=== PATIENT | female | born 1990 | race Caucasian/White ===

== ENCOUNTER 2016-05-24 11:49 | Emergency (ER) | payer OTHER ==
[2016-05-24 11:54] VITALS: TEMP 97.7; BMI 34.3
[2016-05-24] MEDS ORDERED: SODIUM CHLORIDE 1,000 ML IV STA (12:23)
--- NOTE | 2016-05-24 12:23 | PDOC ---
History of Present Illness - General History Source: Patient Exam Limitations: No Limitations - History of Present Illness Initial Comments: 05/24/16 12:40 The patient is a 25-year-old woman, A0, currently , with no past medical history who presents to the emergency department via walk-in for further evaluation of diarrhea for the past 3 weeks. As per patient, her symptoms started on May 05. She experienced diffuse abdominal pain with associated nausea and vomiting. Patient states that her symptoms have persisted and expresses concern for possible dehydration and as she now endorses a cough. No fevers, chills, generalized weakness. No chest pain, shortness of breath. No urinary symptoms. Allergies; None known. Past Surgical History: None reported Social History: She denies tobacco and ETOH use. She admits to daily marijuana use (1 joint). <Lottie Prieto - Last Filed: 05/24/16 14:53> <Jessi Silva - Last Filed: 05/25/16 10:21> - General Chief Complaint: Pain, Acute Stated Complaint: ABDOMINAL PAIN Time Seen by Provider: 05/24/16 12:22 Past History <Lottie Prieto - Last Filed: 05/24/16 14:53> - Surgical History Appendectomy: Yes - Reproductive History (#): 3 Para: 2 Therapeutic (s) & number: No Spontaneous : 0 - Immunization History Immunization Up to Date: Yes - Psycho/Social/Smoking Cessation Hx Anxiety: No Suicidal Ideation: No Smoking Status: No Smoking History: Never smoked Have you smoked in the past 12 months: No Number of Cigarettes Smoked Daily: 0 If you are a former smoker, when did you quit?: PT DOES NOT SMOKE CIGARETTES, ONLY MARIJUANA PER HER REPORT Information on smoking cessation initiated: No 'Breaking Loose' booklet given: 02/12/15 Hx Alcohol Use: No Drug/Substance Use Hx: Yes (marijuana daily) Substance Use Type: None <Jessi Silva - Last Filed: 05/25/16 10:21> - Past Medical History Allergies/Adverse Reactions: Allergies Allergy/AdvReac Type Severity Reaction Status Date / Time No Known Allergies Allergy Verified 05/24/16 11:51 Home Medications: Ambulatory Orders Cephalexin Monohydrate [Keflex -] 500 mg PO BID #14 capsule 05/05/16 Cephalexin Monohydrate [Keflex -] 500 mg PO BID #14 capsule 05/24/16 Review of Systems - Review of Systems Able to Perform ROS?: Yes Comments:: 05/24/16 12:40 GENERAL/CONSTITUTIONAL: No fever or chills. No weakness. HEAD, EYES, EARS, NOSE AND THROAT: No change in vision. No ear pain or discharge. No sore throat. CARDIOVASCULAR: No chest pain or shortness of breath. RESPIRATORY: Yes: +Cough. No wheezing, or hemoptysis. GASTROINTESTINAL: Yes: +Abdominal Pain. +Nausea. +Vomiting. No diarrhea or constipation. GENITOURINARY: No dysuria, frequency, or change in urination. MUSCULOSKELETAL: No joint or muscle swelling or pain. No neck or back pain. SKIN: No rash NEUROLOGIC: No headache, vertigo, loss of consciousness, or change in strength/ sensation. ENDOCRINE: No increased thirst. No abnormal weight change. HEMATOLOGIC/LYMPHATIC: No anemia, easy bleeding, or history of blood clots. ALLERGIC/IMMUNOLOGIC: No hives or skin allergy. <Lottie Prieto - Last Filed: 05/24/16 14:53> *Physical Exam - Vital Signs Last Vital Signs Temp Pulse Resp BP Pulse Ox 97.7 F 65 20 131/69 99 05/24/16 11:51 05/24/16 11:51 05/24/16 11:51 05/24/16 11:51 05/24/16 11:51 - Physical Exam Comments: 05/24/16 12:41 GENERAL: Awake, alert, and fully oriented, in no acute distress HEAD: No signs of trauma EYES: PERRLA, EOMI, sclera anicteric, conjunctiva clear ENT: Auricles normal inspection, hearing grossly normal, nares patent, oropharynx clear without exudates. Moist mucosa NECK: Normal ROM, supple, no lymphadenopathy, JVD, or masses LUNGS: Breath sounds equal, clear to auscultation bilaterally. No wheezes, and no crackles HEART: Regular rate and rhythm, normal S1 and S2, no murmurs, rubs or gallops ABDOMEN: Soft, nontender, +hyperactive bowel sounds. No guarding, no rebound. No masses EXTREMITIES: Normal range of motion, no edema. No clubbing or cyanosis. No cords, erythema, or tenderness NEUROLOGICAL: Cranial nerves II through XII grossly intact. Normal speech <Lottie Prieto - Last Filed: 05/24/16 14:53> - Vital Signs Last Vital Signs Temp Pulse Resp BP Pulse Ox 97.7 F 65 20 131/69 99 05/24/16 11:51 05/24/16 11:51 05/24/16 11:51 05/24/16 11:51 05/24/16 11:51 <Jessi Silva - Last Filed: 05/25/16 10:21> ED Treatment Course - LABORATORY CBC & Chemistry Diagram: 05/24/16 12:55 05/24/16 12:55 <Lottie Prieto - Last Filed: 05/24/16 14:53> - LABORATORY CBC & Chemistry Diagram: 05/24/16 12:55 05/24/16 12:55 <Jessi Silva - Last Filed: 05/25/16 10:21> Medical Decision Making - Medical Decision Making Ultrasound results discussed with patient. No episodes of diarrhea in ED. Found to have UTI. Will treat with keflex. Encouraged her to drink more fluids, as her intake has been sub-optimal. Stable for DC home. <Jessi Silva - Last Filed: 05/25/16 10:21> *DC/Admit/Observation/Transfer - Attestations Scribe Attestion: 05/24/16 12:41 Documentation prepared by Lottie Prieto, acting as medical office scheduler for Jessi Silva MD. <Lottie Prieto - Last Filed: 05/24/16 14:53> - Discharge Dispostion Admit: No <Jessi Silva - Last Filed: 05/25/16 10:21> Diagnosis at time of Disposition: UTI (urinary tract infection) Qualifiers: Urinary tract infection type: acute cystitis Hematuria presence: without hematuria Qualified Code(s): N30.00 - Acute cystitis without hematuria Abdominal pain Qualifiers: Abdominal location: unspecified location Qualified Code(s): R10.9 - Unspecified abdominal pain - Discharge Dispostion Disposition: HOME Condition at time of disposition: Stable - Prescriptions Prescriptions: Cephalexin Monohydrate [Keflex -] 500 mg PO BID #14 capsule - Patient Instructions Printed Discharge Instructions: DI for Urinary Tract Infection (UTI), DI for Hyperemesis Gravidarum
[2016-05-24] MEDS ORDERED: ONDANSETRON 4 MG/2 ML VIAL IVPUSH ONE (12:47)
[2016-05-24] MEDS ORDERED: ONDANSETRON 4 MG/2 ML VIAL ONE (12:57)
[2016-05-24 13:19] LABS: BASOPHIL 0.8 % (0-2.0); EOSINOPHIL 2.3 % (0-4.5); MCH 27.4 pg (25.7-33.7); MCHC 33.1 g/dl (32.0-36.0); MEAN CELL VOLUME 82.6 fl (80-96); MEAN PLT VOLUME 9.2 fl (7.5-11.1); NEUTROPHILS 73.1 % (42.8-82.8); PLATELET COUNT 245 K/MM3 (134-434); RDW 15.7 % (11.6-15.6); WHITE BLOOD COUNT 7.2 K/mm3 (4.0-10.0)
[2016-05-24 13:46] LABS: ALBUMIN 3.4 g/dl (3.4-5.0); ANION GAP 12 (8-16); BILIRUBIN,TOTAL 0.3 mg/dL (0.2-1.0); CALCIUM 8.8 mg/dL (8.5-10.1); CO2 24 mmol/L (21-32); CREATININE 0.5 mg/dL (0.55-1.02); GLUCOSE,RANDOM 82 mg/dL (74-106); SGOT/AST 14 U/L (15-37); SGPT/ALT 13 U/L (12-78); TOT PROT 7.1 g/dl (6.4-8.2)
[2016-05-24 14:01] LABS: ALK PHOS 61 U/L (45-117)
[2016-05-24] MEDS ORDERED: ACETAMINOPHEN 1000 MG/100 ML VIAL (NON FORMULARY) IVPB ONE (14:02)
[2016-05-24 16:49] LABS: URINE APPEARANCE CLOUDY; URINE BILIRUBIN NEGATIVE (NEGATIVE); URINE BLOOD NEGATIVE (NEGATIVE); URINE COLOR YELLOW; URINE GLUCOSE (UA) NEGATIVE (NEGATIVE); URINE KETONE 1+ (NEGATIVE); URINE NITRITE NEGATIVE (NEGATIVE); URINE PROTEIN NEGATIVE (NEGATIVE); URINE UROBILINOGEN NEGATIVE E.U./dl (0.2-1.0)
[2016-05-24 16:51] LABS: URINE LEUK ESTERASE 1+ (NEGATIVE)
[2016-05-24 16:53] VITALS: BP 102/58; PULSE 68
[2016-05-24 16:53] LABS: URINE BACTERIA FEW /hpf (NONE SEEN); URINE MUCUS MANY; URINE RBC 3 /hpf (0-3); URINE WBC 17 /hpf (3-5)
[2016-05-24] MEDS ORDERED: CEPHALEXIN MONOHYDRATE 500 MG CAPSULE (UD) PO ONE (16:55)
== END 2016-05-24 17:18 | disposition home or self-care (01) ==
LOC: JER 11:49
PROC: 3E033NZ Introduction of Analgesics, Hypnotics, Sedatives into Peripheral Vein, Percutaneous Approach (ICD-10-PCS; principal; 2016-05-24)
PROC: 3E033GC Introduction of Other Therapeutic Substance into Peripheral Vein, Percutaneous Approach (ICD-10-PCS; 2016-05-24)
DX: O23.11 Infections of bladder in pregnancy, first trimester (principal); N30.00 Acute cystitis without hematuria; O34.11 Maternal care for benign tumor of corpus uteri, first trimester; D25.9 Leiomyoma of uterus, unspecified; O34.81 Maternal care for other abnormalities of pelvic organs, first trimester; N83.291 Other ovarian cyst, right side; Z3A.08 8 weeks gestation of pregnancy
CPT/HCPCS: 36415; 76801-TC; 80053; 81003; 81015; 83690; 84702; 85025; 87086; 96374; 96375; 99283-25

== ENCOUNTER 2016-07-19 11:54 | Emergency (ER) | payer OTHER ==
[2016-07-19 12:03] VITALS: TEMP 97; BMI 36.8
--- NOTE | 2016-07-19 12:31 | PDOC ---
History of Present Illness - General Chief Complaint: Pain, Acute Stated Complaint: ABD PAIN, 16 WKS Time Seen by Provider: 07/19/16 12:31 History Source: Patient Exam Limitations: No Limitations - History of Present Illness Initial Comments: 07/19/16 12:30 CHIEF COMPLAINT: Lower abdominal pain Machine Operator Slitter Technician: Dr. Almanzar ([facility]) HISTORY OF PRESENT ILLNESS: Patient is a 26-year-old female A1, 16 weeks , presented to the ED with the chief complaints of severe lower abdominal pain since yesterday. A/c to the patient, the pain started suddenly , progressively getting worse, located more on the lower abdomen, non radiating, stabbing and pressure in quality, not associated with nausea or vomiting. Denies vaginal discharge, spotting, bleeding, itching, fever, chills, rigors or sweating. Patient reports she visited Dr Almanzar last Wednesday and everything was normal. Had an ultrasound in Mid-June which was unremarkable as per the patient. Has a h/o fibroid and gets pressure and low back pain every but this was unbearable and had to come to the ED. Patient had a spontaneous miscarriage 2 years ago. Has had normal vaginal delivery in the past. No events during previous pregnancies. Bowel habit normal. No urinary symptoms like burning urination, increased frequency, urgency or incontinence. Sleep/Appetite normal. Patient visited the ED in May, for UTI and was treated with Keflex. Recent Travel: None PAST MEDICAL HISTORY: UTI, Fibroid PAST SURGICAL HISTORY: Appendectomy Social History: Smoking: Denies smoking cigarette, but used to smoke one joint of marijuana, stopped after . Alcohol: Denies Drugs: Denies Family History: Both parents have asthma and Diabetes. Allergies: NKDA 07/19/16 13:24 07/19/16 17:00 Past History - Past Medical History Allergies/Adverse Reactions: Allergies Allergy/AdvReac Type Severity Reaction Status Date / Time No Known Allergies Allergy Verified 07/19/16 12:03 Home Medications: Ambulatory Orders Cephalexin Monohydrate [Keflex -] 500 mg PO BID #14 capsule 05/05/16 Cephalexin Monohydrate [Keflex -] 500 mg PO BID #14 capsule 05/24/16 Cephalexin [Keflex] 250 mg PO TID #21 capsule 07/19/16 Other medical history: denies - Surgical History Appendectomy: Yes - Reproductive History (#): 3 Para: 2 Therapeutic (s) & number: No Spontaneous : 0 - Immunization History Immunization Up to Date: Yes - Psycho/Social/Smoking Cessation Hx Anxiety: No Suicidal Ideation: No Smoking Status: No Smoking History: Never smoked Have you smoked in the past 12 months: No Number of Cigarettes Smoked Daily: 0 If you are a former smoker, when did you quit?: PT DOES NOT SMOKE CIGARETTES, ONLY MARIJUANA PER HER REPORT 'Breaking Loose' booklet given: 02/12/15 Hx Alcohol Use: No Drug/Substance Use Hx: Yes (marijuana daily) Substance Use Type: None Review of Systems - Review of Systems Able to Perform ROS?: Yes Comments:: 07/19/16 12:00 CONSTITUTIONAL:~ Absent: fever, chills, diaphoresis, generalized weakness, malaise, loss of appetite HEENT:~ Absent: rhinorrhea, nasal congestion, throat pain, throat swelling, difficulty swallowing, mouth swelling, ear pain, eye pain, visual Changes CARDIOVASCULAR:~ Absent: chest pain, syncope, palpitations, irregular heart rate, lightheadedness , peripheral edema RESPIRATORY:~ Absent: cough, shortness of breath, dyspnea with exertion, orthopnea, wheezing, stridor, hemoptysis GASTROINTESTINAL: Present: abdominal pain Absent: abdominal distension, nausea, vomiting, diarrhea, constipation, melena, hematochezia GENITOURINARY:~ Absent: dysuria, frequency, urgency, hesitancy, hematuria, flank pain, genital pain MUSCULOSKELETAL:~ Absent: myalgia, arthralgia, joint swelling SKIN:~ Absent: rash, itching, pallor HEMATOLOGIC/IMMUNOLOGIC:~ Absent: easy bleeding, easy bruising, lymphadenopathy, frequent infections ENDOCRINE: Absent: unexplained weight gain, unexplained weight loss, heat intolerance, cold intolerance NEUROLOGIC:~ Absent: headache, focal weakness or paresthesias, dizziness, unsteady gait, seizure, mental status changes, bladder or bowel incontinence PSYCHIATRIC:~ Absent: anxiety, depression, suicidal or homicidal ideation, hallucinations. Is the patient limited Nepali proficient: No *Physical Exam - Vital Signs Last Vital Signs Temp Pulse Resp BP Pulse Ox 97 F L 108 H 18 138/73 99 07/19/16 12:00 07/19/16 12:00 07/19/16 12:00 07/19/16 12:00 07/19/16 12:00 - Physical Exam Comments: 07/19/16 12:00 PE: GENERAL: Awake, alert, and fully oriented, in no acute distress HEAD: No signs of trauma EYES: PERRLA, EOMI, sclera anicteric, conjunctiva clear ENT: Auricles normal inspection, hearing grossly normal, nares patent, oropharynx clear without exudates. Moist mucosa NECK: Normal ROM, supple, no lymphadenopathy, JVD, or masses LUNGS: Breath sounds equal, clear to auscultation bilaterally. No wheezes, and no crackles.. HEART: Regular rate and rhythm, normal S1 and S2, no murmurs, rubs or gallops ABDOMEN: Soft, tenderness over the B/L lower quadrant, normoactive bowel sounds. No guarding, no rebound. No masses. Pelvic examination: No bleeding in vaginal vault, whitish secretion in the cervix, no overlying placenta seen, CMT negative EXTREMITIES: Normal range of motion, no edema. No clubbing or cyanosis. No cords, erythema, or tenderness NEUROLOGICAL: Cranial nerves II through XII grossly intact. Normal speech, normal gait SKIN: Warm, Dry, normal turgor, no rashes or lesions noted. ED Treatment Course - LABORATORY CBC & Chemistry Diagram: 07/19/16 13:23 07/19/16 13:23 Medical Decision Making - Medical Decision Making 07/19/16 12:00 Patient seen and examined at bed side. Vitals noted, tachycardic, low temperature 97F rest unremarkable. Physical examination mentioned above Will order: Routine labs, UA, Bhcg quantitative, Chlamydia/Gonorrhoea amplification Tylenol 650mg PO stat 07/19/16 13:00 Patient reassessed. Abdominal pain reduced from 8 to 5/10 in intensity Labs noted, no leukocytosis. UA: Leukocyte esterase ++ with urine RBC and WBC-2 Transvaginal ultrasound done, waiting for the reports. 07/19/16 15:06 Patient is complaining of headache. Will order Tylenol 325mg stat Ultrasound report reviewed: Single live intrauterine with average sonographic gestational age of 16 weeks Uterine fibroid measuring 4.2 x 3.7 cm 07/19/16 15:[address] Jenelle Mello [phone] @ 15:26pm, she is not international controller. Spoke with Clinical Impression: [id number] @ 16 weeks gestation, abdominal pain most likely due to fibroid compressing the uterus vs UTI. Transvaginal ultrasound report mentioned above Spoke with Dr. Garnett over the phone regarding the patient. He agrees to our plan to discharge with Keflex and to follow up with Dr. Almanzar tomorrow at her clinic She has been advised to return to the Emergency if symptoms worsen or if she develops NEW symptoms. Illness, Investigation and Plan of care explained to the patient. She verbalized understanding. Case seen and discussed with Dr. Mendoza. *DC/Admit/Observation/Transfer Diagnosis at time of Disposition: UTI (urinary tract infection), Fibroid - Discharge Dispostion Admit: No - Prescriptions Prescriptions: Cephalexin [Keflex] 250 mg PO TID #21 capsule - Patient Instructions Printed Discharge Instructions: Urinary Tract Infection Additional Instructions: Your blood work looks normal. Urine examination shows urinary tract infection. Although you are asymptomatic, we have to treat it since you are . Make sure you take the antibiotics three times a day for 7 days (Keflex 250mg) and drink plenty of water. Please make an appointment with your Machine Operator Slitter Technician as soon as possible. Return to the Emergency Department if your symptoms persist or if NEW symptoms develop.
--- NOTE | 2016-07-19 13:24 | PDOC ---
Attending Attestation - Resident Resident Name: Ramandeep Flores - ED Attending Attestation I have performed the following: I have examined & evaluated the patient, The case was reviewed & discussed with the resident, I agree w/resident's findings & plan - HPI HPI: 07/19/16 13:22 26-year-old female, Ab1 (2 years ago) LMP 03/27/60 15 weeks She has had care and her last ultrasound was good Complaining of abdominal/pelvic pain, without vaginal bleeding or spotting She denies any fevers or chills She denies any dysuria urgency or frequency She denies any vomiting or diarrhea She has had a UTI during this treated with Keflex - Physicial Exam PE: 07/19/16 13:22 Physical exam PELVIC EXAMINATION: - Done by me External genitalia: Normal without lesions Vagina: The vaginal vault is clear without blood Cervix: Cervix is long and closed with no cervical motion tenderness Uterus: Uterus is consistent with 15 weeks Adnexa: There is bilateral adnexal tenderness, more on the left than the right - Medical Decision Making 07/19/16 13:24 15 weeks with pelvic cramping, but no vaginal bleeding or spotting 07/19/16 15:14 Laboratory Results - last 24 hr 07/19/16 07/19/16 07/19/16 12:59 12:59 13:23 WBC 8.4 RBC 3.95 Hgb 11.7 Hct 34.3 MCV 86.9 MCHC 34.1 RDW 18.6 H D Plt Count 216 MPV 9.1 Neutrophils % 72.5 Lymphocytes % 20.0 D Monocytes % 6.0 Eosinophils % 1.0 Basophils % 0.5 Sodium Potassium Chloride Carbon Dioxide Anion Gap BUN Creatinine Creat Clearance w eGFR Random Glucose Calcium Total Bilirubin AST ALT Alkaline Phosphatase Total Protein Albumin Beta HCG, Quant 46431.8 Urine Color Yellow Urine Appearance Clear Urine pH 5.0 Ur Specific [place] 1.027 Urine Protein Negative Urine Glucose (UA) Negative Urine Ketones Trace H Urine Blood Negative Urine Nitrite Negative Urine Bilirubin Negative Urine Urobilinogen Negative Ur Leukocyte Esterase 2+ H Urine RBC 2 Urine WBC 4 Ur Epithelial Cells Few Urine Bacteria Rare Urine Mucus Few Blood Type Antibody Screen 07/19/16 07/19/16 13:23 13:23 WBC RBC Hgb Hct MCV MCHC RDW Plt Count MPV Neutrophils % Lymphocytes % Monocytes % Eosinophils % Basophils % Sodium 140 Potassium 3.8 Chloride 106 Carbon Dioxide 24 Anion Gap 10 BUN 6 L D Creatinine 0.4 L Creat Clearance w eGFR > 60 Random Glucose 90 Calcium 8.5 Total Bilirubin 0.2 D AST 12 L ALT 13 Alkaline Phosphatase 52 Total Protein 6.4 Albumin 2.9 L Beta HCG, Quant Urine Color Urine Appearance Urine pH Ur Specific [place] Urine Protein Urine Glucose (UA) Urine Ketones Urine Blood Urine Nitrite Urine Bilirubin Urine Urobilinogen Ur Leukocyte Esterase Urine RBC Urine WBC Ur Epithelial Cells Urine Bacteria Urine Mucus Blood Type A POSITIVE Antibody Screen Negative ultrasound SL IUP with a gestational age of 16 weeks Uterine fibroid measuring 4.2 x 3.7 cm Will discuss with OB 07/19/16 16:16 Case and all results discussed with Dr. Garnett-OB Will send home with Keflex for presumed UTI He will follow her in the office in the next few days Discharge Disposition - Diagnosis UTI (urinary tract infection), Fibroid, Pelvic pain affecting - Discharge Dispostion Disposition: HOME Condition at time of disposition: Good Last Admission D/C Date: 01/12/13 - Prescriptions Prescriptions: Cephalexin [Keflex] 250 mg PO TID #21 capsule - Referrals - Patient Instructions Printed Discharge Instructions: Urinary Tract Infection Additional Instructions: Your blood work looks normal. Urine examination shows urinary tract infection. Although you are asymptomatic, we have to treat it since you are . Make sure you take the antibiotics three times a day for 7 days (Keflex 250mg) and drink plenty of water. Please make an appointment with your First Breaker Feeder as soon as possible. Return to the Emergency Department if your symptoms persist or if NEW symptoms develop. - Post Discharge Activity
[2016-07-19 13:30] LABS: URINE APPEARANCE CLEAR; URINE BILIRUBIN NEGATIVE (NEGATIVE); URINE BLOOD NEGATIVE (NEGATIVE); URINE COLOR YELLOW; URINE GLUCOSE (UA) NEGATIVE (NEGATIVE); URINE KETONE TRACE (NEGATIVE); URINE NITRITE NEGATIVE (NEGATIVE); URINE PROTEIN NEGATIVE (NEGATIVE); URINE UROBILINOGEN NEGATIVE E.U./dl (0.2-1.0)
[2016-07-19 13:31] LABS: URINE LEUK ESTERASE 2+ (NEGATIVE)
[2016-07-19] MEDS ORDERED: ACETAMINOPHEN 325 MG TABLET (FP) PO ONE ×2 (13:33→15:02)
[2016-07-19 13:34] LABS: URINE BACTERIA RARE /hpf (NONE SEEN); URINE MUCUS FEW; URINE RBC 2 /hpf (0-3); URINE WBC 4 /hpf (3-5)
[2016-07-19] MEDS ORDERED: ACETAMINOPHEN 325 MG TABLET (FP) ONE ×2 (13:41→15:15)
[2016-07-19 14:01] LABS: BASOPHIL 0.5 % (0-2.0); MCH 29.7 pg (25.7-33.7); MCHC 34.1 g/dl (32.0-36.0); MEAN CELL VOLUME 86.9 fl (80-96); MEAN PLT VOLUME 9.1 fl (7.5-11.1); NEUTROPHILS 72.5 % (42.8-82.8); PLATELET COUNT 216 K/MM3 (134-434); RDW 18.6 % (11.6-15.6); WHITE BLOOD COUNT 8.4 K/mm3 (4.0-10.0)
[2016-07-19 14:26] LABS: ALBUMIN 2.9 g/dl (3.4-5.0); ANION GAP 10 (8-16); BILIRUBIN,TOTAL 0.2 mg/dL (0.2-1.0); CALCIUM 8.5 mg/dL (8.5-10.1); CO2 24 mmol/L (21-32); CREATININE 0.4 mg/dL (0.55-1.02); GLUCOSE,RANDOM 90 mg/dL (74-106); SGOT/AST 12 U/L (15-37); SGPT/ALT 13 U/L (12-78); TOT PROT 6.4 g/dl (6.4-8.2)
[2016-07-19 14:27] LABS: ALK PHOS 52 U/L (45-117)
[2016-07-19 15:21] VITALS: BP 110/76; PULSE 88
== END 2016-07-19 16:35 | disposition home or self-care (01) ==
LOC: JER 11:54
DX: O23.42 Unspecified infection of urinary tract in pregnancy, second trimester (principal); O34.12 Maternal care for benign tumor of corpus uteri, second trimester; D25.9 Leiomyoma of uterus, unspecified; Z3A.16 16 weeks gestation of pregnancy
CPT/HCPCS: 36415; 76801-TC; 80053; 81003; 81015; 84702; 85025; 86850; 86900; 86901; 87086; 87491; 87591; 99283-25

== ENCOUNTER 2016-09-19 06:36 | Emergency (ER) | payer OTHER ==
[2016-09-19 06:45] VITALS: BMI 39.4
--- NOTE | 2016-09-19 06:51 | PDOC ---
History of Present Illness - General Chief Complaint: Labor Assessment Stated Complaint: ABD PAIN Time Seen by Provider: 09/19/16 06:45 History Source: Patient Exam Limitations: No Limitations - History of Present Illness Initial Comments: 09/19/16 06:48 LMP: 03/27/2016 Due Date: 01/07/2017 26-year-old female presents to the emergency department complaining of lower abdominal cramping 2 hours. Patient denies any nausea/vomiting, fever/ chills, headache, dizziness, lightheadedness, chest pain, shortness of breath, flank pains, urinary symptoms: Frequency/urgency/hesitancy, burning upon urination. Timing/Duration: 1-3 hours Associated Symptoms: reports: denies symptoms Past History - Past Medical History Allergies/Adverse Reactions: Allergies Allergy/AdvReac Type Severity Reaction Status Date / Time No Known Allergies Allergy Verified 09/19/16 06:42 Home Medications: Ambulatory Orders Vitamins (Sjr) - 1 tab PO DAILY 09/08/16 - Surgical History Appendectomy: Yes - Reproductive History (#): 3 Para: 2 Therapeutic (s) & number: No Spontaneous : 0 - Immunization History Immunization Up to Date: Yes - Psycho/Social/Smoking Cessation Hx Anxiety: No Suicidal Ideation: No Smoking Status: No Smoking History: Never smoked Have you smoked in the past 12 months: No Number of Cigarettes Smoked Daily: 0 If you are a former smoker, when did you quit?: PT DOES NOT SMOKE CIGARETTES, ONLY MARIJUANA PER HER REPORT Information on smoking cessation initiated: No 'Breaking Loose' booklet given: 02/12/15 Hx Alcohol Use: No Drug/Substance Use Hx: No Substance Use Type: None Review of Systems - Review of Systems Able to Perform ROS?: Yes Comments:: 09/19/16 06:46 CONSTITUTIONAL: Absent: fever, chills, diaphoresis, generalized weakness, malaise, loss of appetite HEENT: Absent: rhinorrhea, nasal congestion, throat pain, throat swelling, difficulty swallowing, mouth swelling, ear pain, eye pain, visual Changes CARDIOVASCULAR: Absent: chest pain, loss of consciousness, palpitations, irregular heart rate, peripheral edema RESPIRATORY: Absent: cough, shortness of breath, dyspnea with exertion, orthopnea, wheezing, stridor, hemoptysis GASTROINTESTINAL: lower abd carmping Absent: abdominal distension, nausea, vomiting, diarrhea, constipation, melena, hematochezia GENITOURINARY: Absent: dysuria, frequency, urgency, hesitancy, hematuria, flank pain, genital pain MUSCULOSKELETAL: Absent: myalgia, arthralgia, joint swelling SKIN: Absent: rash, itching, pallor HEMATOLOGIC/IMMUNOLOGIC: Absent: easy bleeding, easy bruising, lymphadenopathy, frequent infections ENDOCRINE: Absent: unexplained weight gain, unexplained weight loss, heat intolerance, cold intolerance NEUROLOGIC: Absent: headache, focal weakness or paresthesias, dizziness, unsteady gait, seizure, mental status changes, bladder or bowel incontinence PSYCHIATRIC: Absent: anxiety, depression, suicidal or homicidal ideation, hallucinations. Is the patient limited [place] proficient: No *Physical Exam - Vital Signs Last Vital Signs Temp Pulse Resp BP Pulse Ox 98.2 F 100 H 20 120/66 98 09/19/16 06:42 09/19/16 06:42 09/19/16 06:42 09/19/16 06:42 09/19/16 06:42 - Physical Exam Comments: 09/19/16 06:46 GENERAL: Well developed, well nourished. Awake and alert. No acute distress. HEENT: Normocephalic, atraumatic. PERRLA, EOMI. No conjunctival pallor. Sclera are non- icteric. Moist mucous membranes. Oropharynx is clear. NECK: Supple. Full ROM. No JVD. Carotid pulses 2+ and symmetric, without bruits. No thyromegaly. No lymphadenopathy. CARDIOVASCULAR: Regular rate and rhythm. No murmurs, rubs, or gallops. Distal pulses are 2+ and symmetric. PULMONARY: No evidence of respiratory distress. Lungs clear to auscultation bilaterally. No wheezing, rales or rhonchi. ABDOMINAL: Soft. Non-tender. Non-distended. No rebound or guarding. No organomegaly. Normoactive bowel sounds. MUSCULOSKELETAL Normal range of motion at all joints. No bony deformities or tenderness. No CVA tenderness. EXTREMITIES: No cyanosis. No clubbing. No edema. No calf tenderness. SKIN: Warm and dry. Normal capillary refill. No rashes. No jaundice. NEUROLOGICAL: Alert, awake, appropriate. Cranial nerves 2-12 intact. No deficits to light touch and temperature in face, upper extremities and lower extremities. No motor deficits in the in face, upper extremities and lower extremities. Normoreflexic in the upper and lower extremities. Normal speech. Toes are down- going bilaterally. Gait is normal without ataxia. PSYCHIATRIC: Cooperative. Good eye contact. Appropriate mood and affect. *DC/Admit/Observation/Transfer Diagnosis at time of Disposition: Pain, abdominal, nonspecific - Referrals Referrals: Suzie Cook MD [Primary Care Provider] -
[2016-09-19] MEDS ORDERED: LACTATED RINGERS SOLUTION 500 ML IV ONE ×2 (07:15→08:15)
[2016-09-19 09:15] LABS: URINE APPEARANCE SLCLOUDY; URINE BILIRUBIN NEGATIVE (NEGATIVE); URINE BLOOD NEGATIVE (NEGATIVE); URINE COLOR LTYELLOW; URINE GLUCOSE (UA) NEGATIVE (NEGATIVE); URINE KETONE NEGATIVE (NEGATIVE); URINE NITRITE NEGATIVE (NEGATIVE); URINE PROTEIN NEGATIVE (NEGATIVE); URINE UROBILINOGEN NEGATIVE E.U./dl (0.2-1.0)
[2016-09-19 09:18] LABS: BASOPHIL 0.3 % (0-2.0); EOSINOPHIL 1.6 % (0-4.5); MCH 29.7 pg (25.7-33.7); MCHC 34.1 g/dl (32.0-36.0); MEAN CELL VOLUME 87.1 fl (80-96); MEAN PLT VOLUME 8.8 fl (7.5-11.1); NEUTROPHILS 74.1 % (42.8-82.8); PLATELET COUNT 237 K/MM3 (134-434); RDW 13.8 % (11.6-15.6); WHITE BLOOD COUNT 6.4 K/mm3 (4.0-10.0)
[2016-09-19 09:37] LABS: URINE LEUK ESTERASE 1+ (NEGATIVE)
[2016-09-19 09:41] LABS: CALCIUM 8.4 mg/dL (8.5-10.1); COCKROFT - GAULT 472.1155; CREATININE 0.3 mg/dL (0.55-1.02)
[2016-09-19 10:10] LABS: URINE BACTERIA RARE /hpf (NONE SEEN); URINE MUCUS RARE; URINE RBC 4 /hpf (0-3); URINE WBC 3 /hpf (3-5)
[2016-09-19] MEDS ORDERED: LACTATED RINGERS SOLUTION 1,000 ML IV SCH (10:15)
[2016-09-19 14:32] VITALS: BP 109/53; PULSE 90; TEMP 98.2
== END 2016-09-19 16:30 | disposition home or self-care (01) ==
LOC: JER 06:36
DX: O26.892 Other specified pregnancy related conditions, second trimester (principal); R10.30 Lower abdominal pain, unspecified; Z3A.24 24 weeks gestation of pregnancy
CPT/HCPCS: 36415; 80048; 81003; 81015; 85025; 99281-25

== ENCOUNTER 2016-10-02 04:15 | Emergency (ER) | payer OTHER ==
--- NOTE | 2016-10-02 04:53 | PDOC ---
History of Present Illness - General History Source: Patient Exam Limitations: No Limitations - History of Present Illness Initial Comments: 10/02/16 05:20 The patient is a 26 year old female, 26 weeks , A0, with no significant past medical history, who presents to the ER with gradually worsening sore throat for one day. Patient rates the throat discomfort at 8-9/ 10 when she is swallowing and describes the throat as itchy while not swallowing. She states she has accompanied bilateral ear pain, left worse than right, and headache. Patient says she has chills and a subjective fever. She denies having similar symptoms in the past. She denies taking any pain medications. Patient is currently on pills. Denies changes in hearing Denies sinus pressure Denies nausea, vomiting, diarrhea Denies cough Denies chest pain or shortness of breath Surgical Hx: Appendectomy <Vielka Jones - Last Filed: 10/02/16 05:23> - General History Source: Patient <Samir Thakkar - Last Filed: 10/02/16 05:24> - General Stated Complaint: THROAT/EAR PAIN Time Seen by Provider: 10/02/16 04:53 Past History <Vielka Jones - Last Filed: 10/02/16 05:23> - Surgical History Appendectomy: Yes - Reproductive History (#): 3 Para: 2 Therapeutic (s) & number: No Spontaneous : 0 - Immunization History Immunization Up to Date: Yes - Psycho/Social/Smoking Cessation Hx Anxiety: No Suicidal Ideation: No Smoking Status: No Smoking History: Never smoked Have you smoked in the past 12 months: No Number of Cigarettes Smoked Daily: 0 If you are a former smoker, when did you quit?: PT DOES NOT SMOKE CIGARETTES, ONLY MARIJUANA PER HER REPORT 'Breaking Loose' booklet given: 02/12/15 Hx Alcohol Use: No Drug/Substance Use Hx: No Substance Use Type: None <Samir Thakkar - Last Filed: 10/02/16 05:24> - Past Medical History Allergies/Adverse Reactions: Allergies Allergy/AdvReac Type Severity Reaction Status Date / Time No Known Allergies Allergy Verified 10/02/16 05:01 Home Medications: Ambulatory Orders Vitamins (Sjr) - 1 tab PO DAILY 09/08/16 Azithromycin [Zithromax -] 250 mg PO UTDICT #6 tab 10/02/16 Review of Systems - Review of Systems Comments:: 10/02/16 05:20 CONSTITUTIONAL: Present: (+) fever, (+) chills Absent: no fatigue EYES: Absent: visual changes ENT: Present: (+) sore throat, (+) bilateral ear pain CARDIOVASCULAR: Absent: chest pain, no palpitations RESPIRATORY: Absent: cough, no SOB GI: Absent: abdominal pain, no nausea, no vomiting, no constipation, no diarrhea GENITOURINARY: Absent: dysuria, no frequency, no hematuria MUSCULOSKELETAL: Absent: back pain, no arthralgia, no myalgia SKIN: Absent: rash NEURO: Present: (+) headache <Ohs,Vielka - Last Filed: 10/02/16 05:23> *Physical Exam - Vital Signs Last Vital Signs Temp Pulse Resp BP Pulse Ox 98.4 F 107 H 20 110/70 98 10/02/16 05:01 10/02/16 05:01 10/02/16 05:01 10/02/16 05:01 10/02/16 05:01 - Physical Exam Comments: 10/02/16 05:21 GENERAL: Well-appearing, well-nourished. No apparent distress. HEENT: Moderate posterior pharynx no exudates. Papilloma in buccal mucosa. Tympanic membrane not bulging and benign. No lymphadenopathy. Normocephalic, atraumatic. PERRL, EOM intact. CARDIOVASCULAR: Tachycardic. Normal S1, S2. Regular rhythm. PULMONARY: Clear to auscultation bilaterally. ABDOMEN: Soft, non-distended, non-tender. EXTREMITIES: Normal ROM in all four extremities. No gross deformities. SKIN: Warm, dry. No rash NEUROLOGICAL: No focal neurological deficits. <OhnateVielka - Last Filed: 10/02/16 05:23> Medical Decision Making - Medical Decision Making 10/02/16 05:24 Dr. Thakkar: The scribe's documentation has been prepared under my direction and personally reviewed by me in its entirery. I confirm that the note above accurately reflects all work, treatment, procedures, and medical decision making performed by me. <Samir Thakkar - Last Filed: 10/02/16 05:24> *DC/Admit/Observation/Transfer - Attestations Scribe Attestion: 10/02/16 05:23 Documentation prepared by Vielka Jones, acting as medical technologist microbiology for Samir Thakkar DO. <Vielka Jones - Last Filed: 10/02/16 05:23> - Discharge Dispostion Admit: No <Samir Thakkar - Last Filed: 10/02/16 05:24> Diagnosis at time of Disposition: Pharyngitis Qualifiers: Pharyngitis/tonsillitis etiology: other specified organisms Qualified Code(s): J02.8 - Acute pharyngitis due to other specified organisms - Discharge Dispostion Disposition: HOME Condition at time of disposition: Stable - Prescriptions Prescriptions: Azithromycin [Zithromax -] 250 mg PO UTDICT #6 tab - Referrals Referrals: Jenelle Mello MD [Primary Care Provider] - - Patient Instructions Printed Discharge Instructions: DI for Pharyngitis/Tonsillopharyngitis -- Adult
[2016-10-02 05:03] VITALS: BP 110/70; PULSE 107; TEMP 98.4; BMI 39.4
[2016-10-02] MEDS ORDERED: AZITHROMYCIN 250 MG TABLET (FP) PO STA (05:22)
[2016-10-02] MEDS ORDERED: ACETAMINOPHEN 325 MG TABLET (FP) PO ONE (05:23)
[2016-10-02] MEDS ORDERED: AZITHROMYCIN 200 MG/5 ML BOTTLE ONE (05:26)
[2016-10-02] MEDS ORDERED: ACETAMINOPHEN 325 MG TABLET (FP) ONE (05:26)
== END 2016-10-02 05:44 | disposition home or self-care (01) ==
LOC: JER 04:15
DX: J02.9 Acute pharyngitis, unspecified (principal)
CPT/HCPCS: 99281-25

== ENCOUNTER 2016-10-26 18:15 | Emergency (ER) | payer OTHER ==
--- NOTE | 2016-10-26 18:26 | PDOC ---
Rapid Medical Evaluation Time Seen by Provider: 10/26/16 18:23 Medical Evaluation: Allergies Allergy/AdvReac Type Severity Reaction Status Date / Time No Known Allergies Allergy Verified 10/26/16 18:24 10/26/16 18:24 26 year old female with a history of rectal skin tags requiring surgery presenting with 3 days of rectal pain and bright red blood per rectum. V/s notable for HR 106. -Urine -Basic labs -To Main ED for further evaluation
[2016-10-26 18:29] VITALS: BMI 40.5
[2016-10-26 18:43] LABS: BASOPHIL 0.4 % (0-2.0); EOSINOPHIL 1.4 % (0-4.5); MCH 27.8 pg (25.7-33.7); MCHC 32.9 g/dl (32.0-36.0); MEAN CELL VOLUME 84.3 fl (80-96); MEAN PLT VOLUME 8.8 fl (7.5-11.1); NEUTROPHILS 68.3 % (42.8-82.8); PLATELET COUNT 275 K/MM3 (134-434); WHITE BLOOD COUNT 6.7 K/mm3 (4.0-10.0)
[2016-10-26 18:55] LABS: INR 0.99 (0.82-1.09); PROTHROMBIN TIME (PATIENT) 10.9 SEC (9.98-11.88)
[2016-10-26 19:03] LABS: ANISOCYTOSIS 2+; PLATELET ESTIMATE ADEQUATE (NORMAL); POLYCHROMASIA OCC
[2016-10-26 19:20] LABS: ALBUMIN 2.8 g/dl (3.4-5.0); ALK PHOS 84 U/L (45-117); ANION GAP 10 (8-16); BILIRUBIN,TOTAL 0.2 mg/dL (0.2-1.0); CALCIUM 8.7 mg/dL (8.5-10.1); CO2 23 mmol/L (21-32); CREATININE 0.4 mg/dL (0.55-1.02); GLUCOSE,RANDOM 123 mg/dL (74-106); SGOT/AST 29 U/L (15-37); SGPT/ALT 21 U/L (12-78)
--- NOTE | 2016-10-26 20:58 | PDOC ---
History of Present Illness - General Chief Complaint: Rectal Bleed Stated Complaint: PAIN Time Seen by Provider: 10/26/16 18:23 History Source: Patient Exam Limitations: No Limitations - History of Present Illness Travel History: No Initial Comments: 10/26/16 20:53 26yo Female patient 29 weeks presents to ED c/o rectal skin tag that is bleeding and causing pain. Patient state she had similar symptoms in the past (2 yrs ago) removed by surgeon but does not remember the surgeons name. She reports symptoms have been ongoing for the past 6 months but is concerned today due to bleeding. She denies any other complaints at this time. Patient denies vaginal bleeding, odor, discharge, pain, or any other complaints at this time. FLUME MAKER: Dr. Mello. Timing/Duration: reports: changing over time Quality: reports: mild Abdominal Pain Onset Location: denies: RUQ, LUQ, RLQ, LLQ, epigastric, periumbilical, suprapubic, generalized abdomen, flank, unknown, other Pain Radiation: denies: no radiation, RUQ, LUQ, RLQ, LLQ, epigastric, periumbilical, flank, groin, scapula, shoulder, chest, back, other Activities at Onset: denies: none, exertion, emotional upset, rest, sleep, no specific activity, eating, working, sexual intercourse, other Treatment Prior to Arrive: worse with: analgesics, antacids, cold pack, heat, laxative, enema, other Aggravating Factors: improves with: Defecation Alleviating Factors: improves with: Rest Past History - Travel Traveled outside of the country in the last 30 days: No Close contact w/someone who was outside of country & ill: No - Past Medical History Allergies/Adverse Reactions: Allergies Allergy/AdvReac Type Severity Reaction Status Date / Time No Known Allergies Allergy Verified 10/26/16 22:19 Home Medications: Ambulatory Orders Vitamins (Sjr) - 1 tab PO DAILY 09/08/16 Docusate Sodium [Colace -] 100 mg PO BID #28 capsule 10/27/16 Hydrocortisone 2.5% Topical Cr [Anusol 2.5% Hc Cream -] 1 applic RC BID #1 tube 10/27/16 Phenyleph/Mineral Oil/Petrolat [Preparation H Ointment] 1 applic RC QID PRN #1 tube 10/27/16 Other medical history: SKIN TAGS ( RECTAL ) - Surgical History Appendectomy: Yes - Reproductive History (#): 3 Para: 2 Therapeutic (s) & number: No Spontaneous : 0 - Immunization History Immunization Up to Date: Yes - Psycho/Social/Smoking Cessation Hx Anxiety: No Suicidal Ideation: No Smoking Status: No Smoking History: Never smoked Have you smoked in the past 12 months: No Number of Cigarettes Smoked Daily: 0 If you are a former smoker, when did you quit?: PT DOES NOT SMOKE CIGARETTES, ONLY MARIJUANA PER HER REPORT Information on smoking cessation initiated: No 'Breaking Loose' booklet given: 02/12/15 Hx Alcohol Use: No Drug/Substance Use Hx: No Substance Use Type: None Abd/GI Specific PMHX - Complaint Specific PMHX Colitis: No Diverticulitis: No Gall Bladder Disease: No GERD: No Irritable Bowel Synd (IBS): No Review of Systems - Review of Systems Able to Perform ROS?: Yes Is the patient limited Azeri proficient: No Constitutional: No: Chills, Fever ABD/GI: Yes: Abdominal Distended (29 Weeks ), Other ("Rectal Skin Tags") . No: Nausea, Poor Appetite, Poor Fluid Intake, Rectal Bleeding, Vomiting, Abdominal cramping : No: Burning, Dysuria, Flank Pain, Hematuria Musculoskeletal: No: Back Pain All Other Systems: Reviewed and Negative *Physical Exam - Vital Signs Last Vital Signs Temp Pulse Resp BP Pulse Ox 98.2 F 102 H 18 136/89 100 10/26/16 18:25 10/26/16 18:25 10/26/16 18:25 10/26/16 18:25 10/26/16 18:25 - Physical Exam General Appearance: Yes: Nourished, Appropriately Dressed. No: Apparent Distress, Mild Distress, Moderate Distress, Severe Distress Neck: positive: Trachea midline, Normal Thyroid, Supple. negative: Rigid, Decreased range of motion, Stridor, Lymphadenopathy (R), Lymphadenopathy (L) Respiratory/Chest: positive: Lungs Clear, Normal Breath Sounds. negative: Chest Tender, Respiratory Distress, Accessory Muscle Use, Labored Respiration, Rapid RR Cardiovascular: positive: Regular Rhythm, Regular Rate Gastrointestinal/Abdominal: positive: Normal Bowel Sounds, Soft, Distended (29 Weeks preg). negative: Tender, Guarding, Rebound, Tenderness Musculoskeletal: positive: Normal Inspection. negative: CVA Tenderness, Vertebral Tenderness Extremity: positive: Normal Capillary Refill, Normal Inspection, Normal Range of Motion. negative: Pedal Edema, Swelling, Calf Tenderness, Erythema, Inflammation Integumentary: positive: Normal Color, Dry, Warm. negative: Erythema, Diaphoresis, Rash, Swelling, Bruising Neurologic: positive: primary care pediatrician II-XII NML intact, Fully Oriented, Alert, Normal Mood/ Affect, Normal Response, Motor Strength 09/18 ED Treatment Course - LABORATORY CBC & Chemistry Diagram: 10/26/16 18:30 10/26/16 18:30 - ADDITIONAL ORDERS Additional order review: Laboratory Results 10/26/16 10/26/16 10/26/16 18:30 18:30 18:30 INR 0.99 Sodium 139 Potassium 4.3 Chloride 106 Carbon Dioxide 23 Anion Gap 10 BUN 12 D Creatinine 0.4 L D Creat Clearance w eGFR > 60 Random Glucose 123 H D Calcium 8.7 Total Bilirubin 0.2 AST 29 D ALT 21 D Alkaline Phosphatase 84 D Total Protein 7.0 Albumin 2.8 L Blood Type A POSITIVE Antibody Screen Negative 10/26/16 18:30 RBC 3.75 MCV 84.3 MCHC 32.9 RDW 14.0 MPV 8.8 Neutrophils % 68.3 Lymphocytes % 25.5 D Monocytes % 4.4 Eosinophils % 1.4 Basophils % 0.4 *DC/Admit/Observation/Transfer Diagnosis at time of Disposition: Normal , Hemorrhoidal skin tags - Discharge Dispostion Disposition: HOME Condition at time of disposition: Stable - Prescriptions Prescriptions: Hydrocortisone 2.5% Topical Cr [Anusol 2.5% Hc Cream -] 1 applic RC BID #1 tube Docusate Sodium [Colace -] 100 mg PO BID #28 capsule Phenyleph/Mineral Oil/Petrolat [Preparation H Ointment] 1 applic RC QID PRN #1 tube PRN Reason: Hemorrhoids - Referrals Referrals: Nicanor Garnett MD [Staff Physician] - 14 days (10/26/16 2220 Cleared to be discharged, Please follow up w/ MD as scheduled. Return to labor and delivery if you experience lower abdominal pain, vaginal bleeding, decrease baby movement and/or suspect rupture of membranes. ) - Patient Instructions Printed Discharge Instructions: DI for Hemorrhoids Additional Instructions: - Do Sitz bath using warm water or Epsom Salt (1 cup per 2 quarts of water). - Avoid straining. - Avoid constipation by eating a high fiber diet. Print Language: [place] CITIZEN
--- NOTE | 2016-10-26 21:18 | PDOC ---
*Physical Exam - Vital Signs Last Vital Signs Temp Pulse Resp BP Pulse Ox 98.2 F 102 H 18 136/89 100 10/26/16 18:25 10/26/16 18:25 10/26/16 18:25 10/26/16 18:25 10/26/16 18:25 ED Treatment Course - LABORATORY CBC & Chemistry Diagram: 10/26/16 18:30 10/26/16 18:30 - ADDITIONAL ORDERS Additional order review: Laboratory Results 10/26/16 10/26/16 10/26/16 18:30 18:30 18:30 INR 0.99 Sodium 139 Potassium 4.3 Chloride 106 Carbon Dioxide 23 Anion Gap 10 BUN 12 D Creatinine 0.4 L D Creat Clearance w eGFR > 60 Random Glucose 123 H D Calcium 8.7 Total Bilirubin 0.2 AST 29 D ALT 21 D Alkaline Phosphatase 84 D Total Protein 7.0 Albumin 2.8 L Blood Type A POSITIVE Antibody Screen Negative 10/26/16 18:30 RBC 3.75 MCV 84.3 MCHC 32.9 RDW 14.0 MPV 8.8 Neutrophils % 68.3 Lymphocytes % 25.5 D Monocytes % 4.4 Eosinophils % 1.4 Basophils % 0.4 Medical Decision Making - Medical Decision Making 10/26/16 21:17 agree with care from JJ Crowder *DC/Admit/Observation/Transfer Diagnosis at time of Disposition: Normal - Discharge Dispostion Disposition: HOME Condition at time of disposition: Stable - Referrals Referrals: Nicanor Garnett MD [Staff Physician] - 14 days (10/26/16 2220 Cleared to be discharged, Please follow up w/ MD as scheduled. Return to labor and delivery if you experience lower abdominal pain, vaginal bleeding, decrease baby movement and/or suspect rupture of membranes. )
[2016-10-26 22:39] VITALS: BP 109/67; PULSE 90; TEMP 98.3
== END 2016-10-26 23:00 | disposition home or self-care (01) ==
LOC: JER 18:15
DX: O26.893 Other specified pregnancy related conditions, third trimester (principal); K64.4 Residual hemorrhoidal skin tags; Z3A.29 29 weeks gestation of pregnancy
CPT/HCPCS: 36415; 80053; 85025; 85610; 86850; 86900; 86901; 99282-25

== ENCOUNTER → 2016-11-06 | Emergency (ER) | payer OTHER ==
[2016-11-06 09:18] VITALS: BMI 40.1
--- NOTE | 2016-11-06 09:33 | PDOC ---
*Physical Exam - Vital Signs Last Vital Signs Temp Pulse Resp BP Pulse Ox 98.5 F 114 H 18 134/88 100 11/06/16 09:12 11/06/16 09:12 11/06/16 09:12 11/06/16 09:12 11/06/16 09:12 - Physical Exam General Appearance: Yes: Apparent Distress *DC/Admit/Observation/Transfer - Referrals Referrals: Jenelle Mello MD [Primary Care Provider] -
[2016-11-06 10:35] VITALS: BP 97/58; PULSE 102; TEMP 98.4
== END | disposition home or self-care (01) ==
LOC: JER 09:08
DX: O12.03 Gestational edema, third trimester (principal); Z3A.31 31 weeks gestation of pregnancy
CPT/HCPCS: 99281-25

== ENCOUNTER 2017-01-07 05:00 | Inpatient (IN) | payer OTHER ==
[2017-01-07] MEDS ORDERED: DEXTROSE 5%-LACTATED RINGERS 1,000 ML IV SCH (10:15)
[2017-01-07 10:24] LABS: BASOPHIL 0.7 % (0-2.0); EOSINOPHIL 0.6 % (0-4.5); MCHC 32.6 g/dl (32.0-36.0); MEAN CELL VOLUME 76.8 fl (80-96); MEAN PLT VOLUME 9.7 fl (7.5-11.1); NEUTROPHILS 72.8 % (42.8-82.8); PLATELET COUNT 247 K/MM3 (134-434); RDW 15.5 % (11.6-15.6); WHITE BLOOD COUNT 8.5 K/mm3 (4.0-10.0)
[2017-01-07 10:42] LABS: ANION GAP 10 (8-16); CALCIUM 9.2 mg/dL (8.5-10.1); CO2 22 mmol/L (21-32); CREATININE 0.5 mg/dL (0.55-1.02); GLUCOSE,RANDOM 88 mg/dL (74-106)
[2017-01-07 10:51] LABS: INR 1.02 (0.82-1.09); PROTHROMBIN TIME (PATIENT) 11.2 SEC (9.98-11.88)
[2017-01-07] MEDS ORDERED: BUTORPHANOL TARTRATE 1 MG/ML VIAL IVPB ONE (10:53)
[2017-01-07] MEDS ORDERED: PROMETHAZINE HCL 25 MG/1 ML VIAL IVPUSH ONE (10:53)
[2017-01-07 10:54] LABS: ACTIVATED PTT 27.2 SECONDS (26.9-34.4)
[2017-01-07 11:12] VITALS: BMI 42.4
--- NOTE | 2017-01-07 11:14 | HP ---
Past Medical History - Primary Care Physician PCP:: Rosa Pa - Admission Chief Complaint: 26 yrs , 40 weeks iup onset LP since 8.00am History of Present Illness: PNC at [address] [place] [address]. Wt gain 32 lbs . Obesity A Pos, Rpr nr, Hbsag neg, Rubella pos, quantiferon neg, Hiv neg, Gbs neg, pap nilm, gc/ct neg , 1 hr gtt 127 MFM consult obtained NT screen neg, Modified Sequential neg early pregn Uterine Fibroid identifued right 3.4x3.8x3.4 cm Sono 11/30/16 34.4/7 , efw 75 % tile 2582 gm , esperanza 11.71 , bpp8/8, breech . h/o uti treated with Macrobid 07/2016 . HELLP work up done in due to proteinuria , it was neg History Source: Patient, Medical Record - Past Medical History [employer]: No: Migraine, Seizure Cardiovascular: No: HTN Pulmonary: No: Asthma, COPD ...: 4 ...Para: 2 ...Term: 1 (03/19/2006 6'7") ...: 1 (11/17/2007 6 lbs ) ...Spon : 1 ...Induced : 0 ...LMP: 03/27/16 ... Weeks Gestation by Dates: 40.6 ...EDC by Dates: 01/01/17 ...EDC by Sono: 01/07/17 Infectious Disease: No: AIDS, HIV, STD's, Tuberculosis Psych: No: Addictions, Anxiety - Past Surgical History Hx Myomectomy: No Hx Transabdominal Cerclage: No Additional Surgical History: excision anal tag - Smoking History Smoking history: Never smoked Have you smoked in the past 12 months: No Aproximately how many cigarettes per day: 0 If you are a former smoker, when did you quit?: PT DOES NOT SMOKE CIGARETTES, ONLY MARIJUANA PER HER REPORT - Alcohol/Substance Use Hx Alcohol Use: No History of Substance Use: reports: None Home Medications - Allergies Allergies/Adverse Reactions: Allergies Allergy/AdvReac Type Severity Reaction Status Date / Time No Known Allergies Allergy Verified 11/23/16 23:15 - Home Medications Home Medications: Ambulatory Orders Vitamins (Sjr) - 1 tab PO DAILY 09/08/16 Physical Exam - Maternity Vital Signs: Vital Signs Temperature 98.2 F 01/07/17 06:11 Pulse Rate 116 H 01/07/17 06:11 Respiratory Rate 20 01/07/17 06:11 Blood Pressure 128/80 01/07/17 06:11 O2 Sat by Pulse Oximetry (%) Constitutional: Yes: Well Nourished, Obese (247 lbs) Eyes: Yes: WNL HENT: Yes: Normocephalic Neck: Yes: WNL Cardiovascular: Yes: WNL Lungs: Clear to auscultation Breast(s): Yes: WNL - Abdominal Exam/OB Fundal Height: 40 Number of Fetuses: Single Presentation: Vertex Contractions: Yes Regularity: Irregular (2-4 min) Intensity: Mod/Strong Monitor Mode: External Heart Rate (range): 1 Heart Rate Location: [facility] Category: I Accelerations: Uniform Decelerations: None - Vaginal Exam/OB Vaginal Bleediing: Bloody Show Speculum Exam: No Dilatation (cm): 6 Effacement (%): 90 Amniotic Membrane Status: Intact Presentation: Vertex/Position (exam at 10.15 am) Station: -3 - Physical Exam Musculoskeletal: Yes: WNL Extremities: Yes: WNL. No: Calf Tenderness Edema: Yes Edema: LLE: 2+, RLE: 2+ Integumentary: Yes: WNL, Tattoos Deep Tendon Reflex Grade: Normal +2 ...Motor Strength: WNL Psychiatric: Yes: WNL, Alert, Oriented - Labs Lab Results: CBC, BMP 01/07/17 10:15 01/07/17 10:15 Laboratory Tests 01/07/17 01/07/17 10:15 10:15 INR 1.02 PTT (Actin FS) 27.2 Blood Type A POSITIVE Problem List - Problems (1) 40 weeks gestation of Code(s): Z3A.40 - 40 WEEKS GESTATION OF (2) Labor established Code(s): USG6693 - (3) Morbid obesity due to excess calories Code(s): E66.01 - MORBID (SEVERE) OBESITY DUE TO EXCESS CALORIES Assessment/Plan 26 years, , LD 9 years ago, in labor ,obesity , gbs neg, in labor Plan vag delivery trial . requests stadol + phenrga for labor analgesia 11.15 am 7 cm /90 % /Arom , light meconium, scalp electrode applied fhr 17-180 bpm, , cat-[address] trial of labor
[2017-01-07] MEDS ORDERED: ELECTROLYTE-148 SOLN 1,000 ML IV SCH (13:45)
--- NOTE | 2017-01-07 13:46 | PN ---
Progress Note, Labor Vaginal Exam #1 Labor Exam Date: 01/07/17 Labor Exam Time: 13:30 Heart Rate (range): 140-150 Dilatation: 7 Effacement (%): 90 Amniotic Membrane Status: Ruptured Presentation: Vertex/Position Station: -2 (-3/-2) Remarks: stadol 2 mg + phenrgan 25 iv was given at 11.45 am 01/07/17 01/07/17 11:00 12:00 Temperature 98.4 F Pulse Rate 107 H Blood Pressure 127/76 124/78 Vaginal Exam #2 Labor Exam Date: 01/07/17 Labor Exam Time: 15:00 Heart Rate (range): 140-150 Dilatation: 8 Effacement (%): 90 Amniotic Membrane Status: Ruptured Presentation: Vertex/Position Station: -2 Remarks: fhr cat-1 uc 2-4 min pt very uncomfortable , after receiving epidural analgesia also possible epidural block is ineffective, anesthsiologist will revaluate , may do again Selected Entries 01/07/17 13:00 Temperature 98.9 F Pulse Rate 100 H Blood Pressure 131/76 Vaginal Exam #3 Labor Exam Date: 01/07/17 Labor Exam Time: 16:55 Heart Rate (range): 150 Dilatation: 10 Effacement (%): 100 Amniotic Membrane Status: Ruptured Presentation: Vertex/Position Station: +1 Remarks: uc q 2min fhr cat-1 repeat epidural block was given , along with spinal block . 17.15 pt is encouraged to push.
[2017-01-07] MEDS ORDERED: BENZOCAINE 28 GM HEMORRHOIDAL OINTMENT TP PRN (17:42)
[2017-01-07] MEDS ORDERED: METHYLERGONOVINE MALEATE 0.2 MG/1 ML AMP IM PRN (17:42)
[2017-01-07] MEDS ORDERED: BISACODYL 10 MG SUPP.RECT RC PRN (17:42)
[2017-01-07] MEDS ORDERED: oxyCODONE HCL 5 MG TABLET PO PRN (17:42)
[2017-01-07] MEDS ORDERED: BENZOCAINE 20% 57 GM BOTTLE TP PRN (17:42)
[2017-01-07] MEDS ORDERED: WITCH HAZEL 50% (TUCKS) 40 PAD/JAR PAD TP PRN (17:42)
[2017-01-07] MEDS ORDERED: D5W-LR W/ 20 UNITS OXYTOCIN 1,000 ML IV SCH (17:45)
--- NOTE | 2017-01-07 17:50 | PN ---
Delivery - Delivery Vaginal Delivery: Spontaneous Type of Anesthesia: Epidural EBL (cc): 400 Delivery, Single - Stages of Labor Date 1st Stage Initiatied: 01/07/17 Time 1st Stage Initiated: 08:00 Date 2nd Stage Initiated: 01/07/17 Time 2nd Stage Initiated: 16:55 Date of Delivery: 01/07/17 Time of Delivery: 17:30 Date Placenta Delivered: 12/31/16 Time Placenta Delivered: 17:35 Placenta: Yes: Spontaneous - Condition of Customer Relationship Specialist/Spa Consultant Present: No Infant Gender: Female Position: Left, OA Total Hours ROM (Hrs/Mins): 6hrs 20 min light mecon - 1 Minute Total Score: 9 5 Minutes Total Score: 10 - Feeding Plan Initial Plan: Elected not to breastfeed exclusively throughout hospitalization Remarks - Remarks Remarks: 26 yrs 40 weeks , gbs neg , ,morbid obesity, admitted in labor pnc at [address] [place] [address] stadol + phenerga followed by epidural block x2 was given for labor analgesia intrapartum course uneventful
[2017-01-07 18:34] LABS: ARTERIAL BLD GAS O2 SATURATION 53.1 % (90-98.9); ARTERIAL BLOOD GAS BASE EXCESS -2.7 meq/l (-2-2); ARTERIAL BLOOD GAS HCO3 22.6 meq/L (22-26); ARTERIAL BLOOD GAS pH 7.34 (7.35-7.45)
[2017-01-07 18:39] LABS: ARTERIAL BLOOD GAS PO2 26.7 mmHg (80-100)
[2017-01-07 18:43] LABS: VENOUS BLOOD GAS HCO3 24.7 meq/L (19-25)
[2017-01-07 18:44] LABS: VENOUS PH 7.24 (7.32-7.42)
--- NOTE | 2017-01-08 07:40 | PN ---
Progress Note (short form) - Note Progress Note: ppd 1 doing well, no c/o CBC, BMP 01/07/17 10:15 01/07/17 10:15 Last Vital Signs Temp Pulse Resp BP Pulse Ox 99.3 F 77 20 116/84 98 01/08/17 06:00 01/08/17 06:00 01/08/17 06:00 01/08/17 06:00 01/07/17 18:30 abdomen soft, non tender , no cva uterus firm, non tender lochia mild plan ambulate , cbc
[2017-01-08] MEDS: FERROUS SO4 325 MG TABLET (FP) PO SCH ×2 (08:01→17:23)
[2017-01-08] MEDS: IBUPROFEN 600 MG TABLET (FP) PO PRN ×2 (08:05→13:53)
[2017-01-08] MEDS: ACETAMINOPHEN 325 MG TABLET (FP) PO PRN ×2 (08:06→13:53)
[2017-01-08 08:43] LABS: BASOPHIL 0.4 % (0-2.0); EOSINOPHIL 0.3 % (0-4.5); MCH 24.8 pg (25.7-33.7); MCHC 32.1 g/dl (32.0-36.0); MEAN CELL VOLUME 77.3 fl (80-96); MEAN PLT VOLUME 9.5 fl (7.5-11.1); NEUTROPHILS 73.3 % (42.8-82.8); PLATELET COUNT 217 K/MM3 (134-434); RDW 15.9 % (11.6-15.6)
[2017-01-08] MEDS: PRENATAL VITAMINS W/ FOLIC ACID TABLET (FP) PO SCH (10:05)
[2017-01-08] MEDS ORDERED: SENNOSIDES/DOCUSATE COMBO (SENNA PLUS) TABLET (UD) PO PRN (22:00)
[2017-01-09] MEDS: IBUPROFEN 600 MG TABLET (FP) PO PRN (05:24)
[2017-01-09] MEDS: ACETAMINOPHEN 325 MG TABLET (FP) PO PRN (05:25)
[2017-01-09 08:18] VITALS: BP 107/59; PULSE 76; TEMP 98.6
[2017-01-09] MEDS: FERROUS SO4 325 MG TABLET (FP) PO SCH (08:55)
[2017-01-09] MEDS: PRENATAL VITAMINS W/ FOLIC ACID TABLET (FP) PO SCH (09:55)
--- NOTE | 2017-01-09 10:27 | DS ---
Physical Exam-ELEMENTARY ASSISTANT PRINCIPAL Vital Signs: Vital Signs Temperature 98.6 F 01/09/17 08:17 Pulse Rate 76 01/09/17 08:17 Respiratory Rate 18 01/09/17 08:17 Blood Pressure 107/59 01/09/17 08:17 O2 Sat by Pulse Oximetry (%) 98 01/07/17 18:30 Constitutional: Yes: Well Nourished Eyes: Yes: Conjunctiva Clear Neck: Yes: Supple, Trachea Midline Cardiovascular: Yes: Regular Rate and Rhythm Respiratory: Yes: Regular, CTA Bilaterally Gastrointestinal: Yes: Normal Bowel Sounds ...Rectal Exam: Yes: WNL External Genitalia: Yes: Normal Vaginal Exam: Yes: Normal Cervix: Yes: Normal Uterus: Yes: Firm ....Post : Yes: Uterus firm, Moderate lochia serosa Breast(s): Yes: WNL Neurological: Yes: Alert, Oriented ...Motor Strength: WNL Psychiatric: Yes: Alert, Oriented Labs: CBC, BMP 01/08/17 08:00 01/07/17 10:15 Delivery - Delivery Vaginal Delivery: Spontaneous Type of Anesthesia: Epidural Episiotomy/Laceration: None EBL (cc): 400 Delivery, Single - Stages of Labor Date 1st Stage Initiatied: 01/07/17 Time 1st Stage Initiated: 08:00 Date 2nd Stage Initiated: 01/07/17 Time 2nd Stage Initiated: 16:55 Date of Delivery: 01/07/17 Time of Delivery: 17:30 Time Placenta Delivered: 17:35 Placenta: Yes: Spontaneous - Condition of Entertainment & Media Correspondent/Dye House Helper Present: [place]: Soraida Nettles Infant Gender: Female Position: Left, OA Total Hours ROM (Hrs/Mins): 6hrs 20 min light mecon - 1 Minute Total Score: 9 5 Minutes Total Score: 10 - [place] Feeding Plan Initial Plan: Elected not to breastfeed exclusively throughout hospitalization Discharge Summary Reason For Visit: LABOR Current Active Problems 40 weeks gestation of (Acute) Labor established (Acute) Morbid obesity due to excess calories (Acute) Procedures: Principal: Normal spontaneous vaginal delivery Hospital Course: Routine care Condition: Good - Instructions Diet, Activity, Other Instructions: return to clinic in 6 weeks. call [facility] for appointment. [phone] Referrals: Rosa Pa MD [Staff Physician] - - Home Medications Comprehensive Discharge Medication List: Ambulatory Orders Vitamins (Sjr) - 1 tab PO DAILY 09/08/16
== END 2017-01-09 13:35 | disposition home or self-care (01) | DRG 560 ==
LOC: JDEL 05:00 → JLDR 10:00 → J3W 20:18
PROVIDERS: ADMIT Obstetrics & Gynecology; ATTEND Obstetrics & Gynecology
PROC: 10E0XZZ Delivery of Products of Conception, External Approach (ICD-10-PCS; principal; 2017-01-07)
DX: O99.214 Obesity complicating childbirth (principal); E66.01 Morbid (severe) obesity due to excess calories; Z68.41 Body mass index [BMI] 40.0-44.9, adult; Z3A.40 40 weeks gestation of pregnancy; Z37.0 Single live birth
CPT/HCPCS: 36415; 36600; 59025; 59409; 80048; 82803; 85025; 85610; 85730; 86593; 86850; 86900; 86901

== ENCOUNTER 2017-12-02 17:22 | Emergency (ER) | payer OTHER ==
--- NOTE | 2017-12-02 18:09 | PDOC ---
Rapid Medical Evaluation Time Seen by Provider: 12/02/17 18:06 Medical Evaluation: Allergies Allergy/AdvReac Type Severity Reaction Status Date / Time No Known Allergies Allergy Verified 04/24/17 23:35 I have performed a brief in-person evaluation of this patient. The patient presents with a chief complaint of: head pain s/p fall with head trauma. fell backwards on a chair and hit the back of her head today. No LOC. [place] dizzy afterwards Pertinent physical exam findings: No hematomas. No midline cervical spine TTP or step offs. cervical paravertebral TTP b/l. I have ordered the following: hcg The patient will proceed to the ED for further evaluation. Discharge Disposition - Diagnosis Head injury - Referrals - Patient Instructions - Post Discharge Activity
[2017-12-02 18:11] VITALS: BP 128/75; PULSE 63; TEMP 97.5; BMI 39.4
[2017-12-02] MEDS ORDERED: CYCLOBENZAPRINE HCL 10 MG TABLET (FP) PO ONE (18:25)
[2017-12-02] MEDS ORDERED: IBUPROFEN 600 MG TABLET (FP) PO ONE ×2 (18:25→18:56)
[2017-12-02] MEDS ORDERED: ACETAMINOPHEN/CAFFEINE/BUTALBITAL 1 TAB ONE (18:26)
[2017-12-02] MEDS ORDERED: ACETAMINOPHEN/CAFFEINE/BUTALBITAL 1 TAB PO ONE (18:30)
--- NOTE | 2017-12-02 18:43 | PDOC ---
History of Present Illness - General Chief Complaint: Pain Stated Complaint: FALL INJURY Time Seen by Provider: 12/02/17 18:06 History Source: Patient Exam Limitations: No Limitations - History of Present Illness Initial Comments: 12/02/17 18:38 27 yr old female status post mechanical fall stating she was in the kitchen slipped on wet water causing her to strike the right side of her head onto the refrigerator. Patient states had no LOC and complains of mild dizziness following the episode but now complaining of right neck pain right head pain and right ear pain. Patient denies visual changes, decreased hearing, nausea, dizziness presently, weakness, or headache. Patient states no medical history. Occurred: reports: just prior to arrival Severity: reports: moderate Pain Location: reports: head Method of Injury: Yes: fall Modifying Factors: improves with: None Associated Symptoms (Fall): other Past History - Travel Traveled outside of the country in the last 30 days: No - Past Medical History Allergies/Adverse Reactions: Allergies Allergy/AdvReac Type Severity Reaction Status Date / Time No Known Allergies Allergy Verified 12/02/17 18:08 Home Medications: Ambulatory Orders NK [No Known Home Medication] 12/02/17 Asthma: No Cancer: No Cardiac Disorders: No COPD: No Diabetes: No HTN: No Seizures: No Thyroid Disease: No - Surgical History Appendectomy: Yes - Reproductive History (#): 3 Para: 2 Therapeutic (s) & number: No Spontaneous : 0 - Immunization History Immunization Up to Date: Yes - Suicide/Smoking/Psychosocial Hx Smoking Status: No Smoking History: Never smoked Have you smoked in the past 12 months: No Number of Cigarettes Smoked Daily: 0 If you are a former smoker, when did you quit?: PT DOES NOT SMOKE CIGARETTES, ONLY MARIJUANA PER HER REPORT Information on smoking cessation initiated: No 'Breaking Loose' booklet given: 02/12/15 Hx Alcohol Use: No Drug/Substance Use Hx: Yes (Marijuana) Substance Use Type: Marijuana Hx Substance Use Treatment: No Patient Lives Alone: No Lives with/in: spouse/SO Review of Systems - Review of Systems Able to Perform ROS?: No Constitutional: No: Symptoms Reported HEENTM: Yes: Ear Pain ( ) Respiratory: No: Symptoms reported Cardiac (ROS): No: Symptoms Reported ABD/GI: No: Symptoms Reported : No: Symptoms Reported Musculoskeletal: No: Symptoms Reported Integumentary: No: Symptoms Reported, Bruising, Lumps Neurological: No: Symptoms reported Endocrine: No: Symptoms Reported Hematologic/Lymphatic: No: Symptoms Reported *Physical Exam - Vital Signs Last Vital Signs Temp Pulse Resp BP Pulse Ox 97.5 F L 63 18 128/75 100 12/02/17 18:09 12/02/17 18:09 12/02/17 18:09 12/02/17 18:09 12/02/17 18:09 - Physical Exam General Appearance: Yes: Nourished, Appropriately Dressed. No: Apparent Distress HEENT: positive: EOMI, STEVEN, TMs Normal (Right TM pearly vanessa with light reflex. No hemotympanum. No mastoid tenderness. No internal laceration to the ear canal. Tender over the pinna), Pharynx Normal. negative: Pale Conjunctivae Neck: positive: Tender (right trapezius), Supple. negative: Decreased range of motion Respiratory/Chest: positive: Lungs Clear, Normal Breath Sounds. negative: Respiratory Distress, Accessory Muscle Use Cardiovascular: positive: Regular Rhythm, Regular Rate. negative: Murmur Gastrointestinal/Abdominal: positive: Soft. negative: Tenderness Extremity: positive: Normal Capillary Refill. negative: Pedal Edema Integumentary: positive: Normal Color, Warm, Moist Neurologic: positive: Normal Mood/Affect, Motor Strength 5/5 Medical Decision Making - Medical Decision Making 12/02/17 18:44 Patient status post mechanical fall now complaining of right neck and right ear pain. Patient exam had right trapezius tenderness along with right pinna tenderness with no other acute findings. Patient ordered for Flexeril secondary to complaint of neck pain and Motrin 600. Patient be discharged home with the same. *DC/Admit/Observation/Transfer Diagnosis at time of Disposition: Head injury - Discharge Dispostion Disposition: HOME Condition at time of disposition: Good - Referrals - Patient Instructions Printed Discharge Instructions: DI for Closed Head Injury Additional Instructions: Please take Motrin 600 every 8 hours for discomfort and apply ice to the affected areas much as you can tolerate for the next 3 days. If youdevelop any change in hearing, weakness or dizziness please return to the ED - Post Discharge Activity
[2017-12-02] MEDS ORDERED: CYCLOBENZAPRINE HCL 10 MG TABLET (FP) ONE (18:57)
== END 2017-12-02 19:06 | disposition home or self-care (01) ==
LOC: JERFT 17:22
DX: S09.8XXA Other specified injuries of head, initial encounter (principal); W01.198A Fall on same level from slipping, tripping and stumbling with subsequent striking against other object, initial encounter; Y93.89 Activity, other specified; Y92.030 Kitchen in apartment as the place of occurrence of the external cause; Y99.8 Other external cause status
CPT/HCPCS: 84703; 99281-25

== ENCOUNTER 2018-03-18 19:51 | Emergency (ER) | payer OTHER ==
--- NOTE | 2018-03-18 20:15 | PDOC ---
Rapid Medical Evaluation Chief Complaint: Urinary Problem Time Seen by Provider: 03/18/18 20:12 Medical Evaluation: Allergies Allergy/AdvReac Type Severity Reaction Status Date / Time No Known Allergies Allergy Verified 12/02/17 18:08 03/18/18 20:12 unable to urinate, hematuria and left flank pain. denies fever /c hill PE: patient alert ox3 no cvat + suprapubic tenderness A: dysuria P: ua/ urine culture, urine Discharge Disposition - Diagnosis Dysuria - Referrals Referrals: Breanna Marie MD [Primary Care Provider] - - Patient Instructions - Post Discharge Activity
[2018-03-18 20:17] VITALS: BP 144/65; PULSE 75; TEMP 98.6; BMI 369.6
[2018-03-18] MEDS ORDERED: PHENAZOPYRIDINE HCL 100 MG TABLET (FP) PO ONE (20:25)
--- NOTE | 2018-03-18 20:29 | PDOC ---
History of Present Illness - General Chief Complaint: Urinary Problem Stated Complaint: ABD PAIN Time Seen by Provider: 03/18/18 20:12 History Source: Patient Exam Limitations: No Limitations - History of Present Illness Travel History: No Initial Comments: 03/18/18 20:27 27 yr female with painful urination started today . no fever no vomiting. history of UTI 3 yrs ago feels similair. Timing/Duration: reports: constant Abdominal Pain Onset Location: reports: periumbilical, suprapubic Past History - Past Medical History Allergies/Adverse Reactions: Allergies Allergy/AdvReac Type Severity Reaction Status Date / Time No Known Allergies Allergy Verified 03/18/18 20:17 Home Medications: Ambulatory Orders Cephalexin [Keflex] 500 mg PO BID #6 capsule 03/18/18 Phenazopyridine HCl [Pyridium -] 200 mg PO TID PRN #12 tablet 03/18/18 Asthma: No Cancer: No Cardiac Disorders: No COPD: No Diabetes: No HTN: No Seizures: No Thyroid Disease: No - Surgical History Appendectomy: Yes - Reproductive History (#): 3 Para: 2 Therapeutic (s) & number: No Spontaneous : 0 - Immunization History Immunization Up to Date: Yes - Suicide/Smoking/Psychosocial Hx Smoking Status: No Smoking History: Never smoked Have you smoked in the past 12 months: No Number of Cigarettes Smoked Daily: 0 If you are a former smoker, when did you quit?: PT DOES NOT SMOKE CIGARETTES, ONLY MARIJUANA PER HER REPORT Information on smoking cessation initiated: No 'Breaking Loose' booklet given: 02/12/15 Hx Alcohol Use: No Drug/Substance Use Hx: Yes Substance Use Type: Marijuana Hx Substance Use Treatment: No Abd/GI Specific PMHX - Complaint Specific PMHX Colitis: No Diverticulitis: No Gall Bladder Disease: No GERD: No Irritable Bowel Synd (IBS): No Review of Systems - Review of Systems Able to Perform ROS?: Yes Is the patient limited Syrian proficient: No Constitutional: No: Symptoms Reported HEENTM: No: Symptoms Reported Respiratory: No: Symptoms reported Cardiac (ROS): No: Symptoms Reported ABD/GI: No: Symptoms Reported : Yes: Symptoms Reported *Physical Exam - Vital Signs Last Vital Signs Temp Pulse Resp BP Pulse Ox 98.6 F 75 17 144/65 100 03/18/18 20:14 03/18/18 20:14 11/02/18 20:14 03/18/18 20:14 03/18/18 20:14 - Physical Exam General Appearance: Yes: Nourished, Appropriately Dressed HEENT: positive: EOMI, STEVEN Gastrointestinal/Abdominal: positive: Normal Bowel Sounds, Tender (suprapubic ) , Soft Lymphatic: negative: Adenopathy Musculoskeletal: positive: Normal Inspection. negative: CVA Tenderness, CVA Tenderness (R), CVA Tenderness (L) Extremity: positive: Normal Capillary Refill, Normal Inspection, Normal Range of Motion Integumentary: positive: Normal Color, Dry, Warm Neurologic: positive: Fully Oriented, Alert, Normal Mood/Affect, Normal Response , Motor Strength 5/5 Medical Decision Making - Medical Decision Making 03/18/18 20:28 cc: painful urination with urgency will r/o UTI no cva tenderness denies vaginal discharge LMP 2 weeks ago *DC/Admit/Observation/Transfer Diagnosis at time of Disposition: Dysuria UTI (urinary tract infection) Qualifiers: Urinary tract infection type: acute cystitis Hematuria presence: with hematuria Qualified Code(s): N30.01 - Acute cystitis with hematuria - Discharge Dispostion Disposition: HOME Condition at time of disposition: Good - Prescriptions Prescriptions: Cephalexin [Keflex] 500 mg PO BID #6 capsule Phenazopyridine HCl [Pyridium -] 200 mg PO TID PRN #12 tablet PRN Reason: urinary pain - Referrals Referrals: Breanna Marie MD [Staff Physician] - - Patient Instructions Printed Discharge Instructions: DI for Urinary Tract Infection (UTI) Additional Instructions: drink at least 2 liters of water take the medication as prescribed follow with the urologist if symptoms worsen or persist - Post Discharge Activity
[2018-03-18 20:31] LABS: URINE APPEARANCE CLOUDY; URINE BILIRUBIN NEGATIVE (<2.0 mg/dL); URINE COLOR LTYELLOW; URINE GLUCOSE (UA) NEGATIVE (NEGATIVE); URINE KETONE NEGATIVE (NEGATIVE); URINE LEUK ESTERASE 3+ (NEGATIVE); URINE NITRITE NEGATIVE (NEGATIVE); URINE PROTEIN 2+ (NEGATIVE)
[2018-03-18] MEDS ORDERED: PHENAZOPYRIDINE HCL 100 MG TABLET (FP) ONE (20:32)
[2018-03-18 20:33] LABS: HCG,QUALITATIVE URINE Negative
[2018-03-18 21:27] LABS: EPI CELLS FEW /HPF (FEW); URINE BACTERIA RARE /hpf (NONE SEEN); URINE MUCUS MANY
== END 2018-03-18 21:17 | disposition home or self-care (01) ==
LOC: JERFT 19:51
DX: N30.01 Acute cystitis with hematuria (principal)
CPT/HCPCS: 81003; 81015; 84703; 87086; 87186; 99281-25

== ENCOUNTER 2018-05-26 09:36 | Emergency (ER) | payer OTHER ==
[2018-05-26 09:44] VITALS: BP 153/81; PULSE 78; TEMP 98.4; BMI 34.3
--- NOTE | 2018-05-26 10:22 | PDOC ---
History of Present Illness - General Chief Complaint: Headache Stated Complaint: HEADACHE Time Seen by Provider: 05/26/18 10:09 History Source: Patient Exam Limitations: No Limitations - History of Present Illness Initial Comments: 05/26/18 10:17 27-year-old female no past medical history here today complaining of a headache. Patient states started at 1 AM his finger progressively getting worse she describes a frontal and bitemporal headache denies any fevers or chills no recent trauma no nausea no vomiting no associated weakness or vision changes. Dates it has been many many years since she had a headache this bad. Denies any other alcohol or drug use no other associated symptoms. Did not take anything for her pain prior to arrival states she is not and is currently menstruating denies history of previous headaches associated with menstruation Past History - Past Medical History Allergies/Adverse Reactions: Allergies Allergy/AdvReac Type Severity Reaction Status Date / Time No Known Allergies Allergy Verified 03/18/18 20:17 Home Medications: Ambulatory Orders Cephalexin [Keflex] 500 mg PO BID #6 capsule 03/18/18 Phenazopyridine HCl [Pyridium -] 200 mg PO TID PRN #12 tablet 03/18/18 Asthma: No Cancer: No Cardiac Disorders: No COPD: No Diabetes: No HTN: No Seizures: No Thyroid Disease: No - Surgical History Appendectomy: Yes - Reproductive History (#): 3 Para: 2 Therapeutic (s) & number: No Spontaneous : 0 - Immunization History Immunization Up to Date: Yes - Suicide/Smoking/Psychosocial Hx Smoking Status: No Smoking History: Never smoked Have you smoked in the past 12 months: No Number of Cigarettes Smoked Daily: 0 If you are a former smoker, when did you quit?: PT DOES NOT SMOKE CIGARETTES, ONLY MARIJUANA PER HER REPORT 'Breaking Loose' booklet given: 02/12/15 Hx Alcohol Use: No Drug/Substance Use Hx: Yes (MARIJUANA) Substance Use Type: Marijuana Hx Substance Use Treatment: No *Physical Exam - Vital Signs Last Vital Signs Temp Pulse Resp BP Pulse Ox 98.4 F 78 16 153/81 98 05/26/18 09:40 05/26/18 09:40 05/26/18 09:40 05/26/18 09:40 05/26/18 09:40 - Physical Exam Comments: 05/26/18 10:21 Awake alert no acute distress except for motions are intact pupils are equally round and reactive. Patient has frontal sinus tenderness and bitemporal tenderness does have pain with opening closing of her jaw. No meningeal signs lungs are clear bilaterally heart is regular without any murmurs rubs or gallops abdomen is soft and nontender strength is 5 out of 5 all 4 extremities cranial nerves are intact speech is clear skin is warm and dry no rash Moderate Sedation - Procedure Monitoring Vital Signs: Procedure Monitoring Vital Signs Temperature 98.4 F 05/26/18 09:40 Pulse Rate 78 05/26/18 09:40 Respiratory Rate 16 05/26/18 09:40 Blood Pressure 153/81 05/26/18 09:40 O2 Sat by Pulse Oximetry (%) 98 05/26/18 09:40 ED Treatment Course - LABORATORY CBC & Chemistry Diagram: 05/26/18 10:30 05/26/18 10:35 Medical Decision Making - Medical Decision Making 05/26/18 10:22 27-year-old Here with a headache. Differential includes anemia, hormone-related headache, dehydration tension headache TMJ migraine. Plan IV fluids Reglan Toradol UA UCG and basic labs reassess 05/26/18 12:35 pt feels improved. labs unrmarkable ucg negative. will dc home given fu with nuerology for persistant or recurrent headache. *DC/Admit/Observation/Transfer Diagnosis at time of Disposition: Headache - Discharge Dispostion Disposition: HOME Condition at time of disposition: Improved Decision to Admit order: No - Referrals Referrals: Julia Covington MD [Primary Care Provider] - Miguel Conti MD [Staff Physician] - - Patient Instructions Printed Discharge Instructions: Tension Headache Additional Instructions: you can take ibuprofen 600 mg every 8 hrs as needed for your pain. return for vomiting. worsening pain, weakness change to vision or any concerns. for persistant headaches. you can follow up with nuerology. see referral and call to schedule. you can also follow up with your primary doctor. - Post Discharge Activity
[2018-05-26] MEDS ORDERED: SODIUM CHLORIDE 0.9% 1000 ML INFUS.BAG IV ONE (10:23)
[2018-05-26] MEDS ORDERED: ACETAMINOPHEN 325 MG TABLET (FP) PO ONE (10:24)
[2018-05-26] MEDS ORDERED: METOCLOPRAMIDE HCL INJECTION 10 MG/2 ML VIAL IVPUSH ONE (10:24)
[2018-05-26] MEDS ORDERED: ACETAMINOPHEN 325 MG TABLET (FP) ONE (10:37)
[2018-05-26] MEDS ORDERED: METOCLOPRAMIDE HCL INJECTION 10 MG/2 ML VIAL ONE (10:37)
[2018-05-26 10:47] LABS: BASO % 0.5 % (0-2.0); EOS % 1.4 % (0-4.5); HEMATOCRIT 36.7 % (32.4-45.2); HEMOGLOBIN 12.5 GM/dL (10.7-15.3); LYMPH % 23.7 % (8-40); MCH 28.2 pg (25.7-33.7); MCHC 34.2 g/dl (32.0-36.0); MEAN CELL VOLUME 82.4 fl (80-96); MEAN PLT VOLUME 9.6 fl (7.5-11.1); MONO % 5.9 % (3.8-10.2); NEUT % 68.5 % (42.8-82.8); PLATELET COUNT 265 K/MM3 (134-434); RBC 4.45 M/mm3 (3.60-5.2); RDW 15.7 % (11.6-15.6); WHITE BLOOD COUNT 6.3 K/mm3 (4.0-10.0)
[2018-05-26 11:01] LABS: HCG,QUALITATIVE URINE Negative
[2018-05-26 11:10] LABS: ALBUMIN 3.8 g/dl (3.4-5.0); ALK PHOS 78 U/L (45-117); ANION GAP 8 MMOL/L (8-16); BILIRUBIN,TOTAL 0.4 mg/dL (0.2-1); BLOOD UREA NITROGEN 15 mg/dL (7-18); CALCIUM 8.7 mg/dL (8.5-10.1); CHLORIDE 108 mmol/L (98-107); CO2 26 mmol/L (21-32); CREATININE 0.5 mg/dL (0.55-1.3); GLUCOSE,RANDOM 108 mg/dL (74-106); POTASSIUM 3.9 mmol/L (3.5-5.1); SGOT/AST 15 U/L (15-37); SGPT/ALT 21 U/L (13-61); SODIUM 142 mmol/L (136-145); TOT PROT 7.8 g/dl (6.4-8.2)
[2018-05-26 11:46] LABS: URINE APPEARANCE CLOUDY; URINE BILIRUBIN NEGATIVE (<2.0 mg/dL); URINE COLOR YELLOW; URINE GLUCOSE (UA) NEGATIVE (NEGATIVE); URINE KETONE NEGATIVE (NEGATIVE); URINE LEUK ESTERASE NEGATIVE (NEGATIVE); URINE NITRITE NEGATIVE (NEGATIVE); URINE PROTEIN 1+ (NEGATIVE); URINE UROBILINOGEN NEGATIVE mg/dL (0.2-1.0)
[2018-05-26] MEDS ORDERED: KETOROLAC TROMETHAMINE 15 MG/ML VIAL IVPUSH ONE (11:48)
[2018-05-26 12:00] LABS: EPI CELLS FEW /HPF (FEW); URINE MUCUS MANY
== END 2018-05-26 12:53 | disposition home or self-care (01) ==
LOC: JER 09:36
PROC: 3E0333Z Introduction of Anti-inflammatory into Peripheral Vein, Percutaneous Approach (ICD-10-PCS; principal; 2018-05-26)
PROC: 3E033GC Introduction of Other Therapeutic Substance into Peripheral Vein, Percutaneous Approach (ICD-10-PCS; 2018-05-26)
DX: R51 Headache (principal)
CPT/HCPCS: 36415; 80053; 81003; 81015; 84703; 85025; 99282-25; J7030

== ENCOUNTER 2018-06-02 20:07 | Emergency (ER) | payer OTHER ==
[2018-06-02 20:31] VITALS: BP 140/59; PULSE 92; TEMP 99.2; BMI 35.7
--- NOTE | 2018-06-02 20:31 | PDOC ---
Rapid Medical Evaluation Time Seen by Provider: 06/02/18 20:29 Medical Evaluation: Allergies Allergy/AdvReac Type Severity Reaction Status Date / Time No Known Allergies Allergy Verified 03/18/18 20:17 06/02/18 20:29 I have performed a brief in-person evaluation of this patient. The patient presents with a chief complaint of: throat pain, bilat ear pain, headache x 3 days Pertinent physical exam findings: mild pharyngeal erythema, HR 92 I have ordered the following: Rapid strep The patient will proceed to the ED for further evaluation. Discharge Disposition - Diagnosis Throat pain - Referrals - Patient Instructions - Post Discharge Activity
[2018-06-02] MEDS ORDERED: DEXAMETHASONE LIQUID 0.5 MG/5 ML 240 ML BULK BOTTLE PO ONE (21:34)
--- NOTE | 2018-06-02 21:34 | PDOC ---
History of Present Illness - General Chief Complaint: Sore Throat Stated Complaint: EAR/THROAT PAIN Time Seen by Provider: 06/02/18 20:29 History Source: Patient Exam Limitations: No Limitations - History of Present Illness Initial Comments: 06/02/18 21:36 Patient is a 27-year-old female with no medical history who presents to the ER today for 1 day of sore throat. Patient states she was seen at the clinic where she had a negative rapid strep test. She took 2 Motrin at home and then went to sleep. When she woke up around 7 PM she said her pain was worse and she presents to the ER for evaluation. Patient also admits to nasal congestion and headache. Patient is requesting HIV testing at this time. Denies fevers, chills , shortness of breath, cough, nausea, vomiting and diarrhea. Past History - Travel Traveled outside of the country in the last 30 days: No Close contact w/someone who was outside of country & ill: No - Past Medical History Allergies/Adverse Reactions: Allergies Allergy/AdvReac Type Severity Reaction Status Date / Time No Known Allergies Allergy Verified 06/02/18 20:31 Home Medications: Ambulatory Orders Fluticasone Prop 0.05% Nasal [Flonase -] 1 - 2 spray NS DAILY #1 spray.pump Ibuprofen 600 mg PO Q6H #30 tablet 06/02/18 Asthma: No Cancer: No Cardiac Disorders: No COPD: No Diabetes: No HTN: No Seizures: No Thyroid Disease: No - Surgical History Appendectomy: Yes - Reproductive History (#): 3 Para: 2 Therapeutic (s) & number: No Spontaneous : 0 - Immunization History Immunization Up to Date: Yes - Suicide/Smoking/Psychosocial Hx Smoking Status: No Smoking History: Never smoked Have you smoked in the past 12 months: No Number of Cigarettes Smoked Daily: 0 If you are a former smoker, when did you quit?: PT DOES NOT SMOKE CIGARETTES, ONLY MARIJUANA PER HER REPORT Information on smoking cessation initiated: No 'Breaking Loose' booklet given: 02/12/15 Hx Alcohol Use: No Drug/Substance Use Hx: Yes Substance Use Type: Marijuana Hx Substance Use Treatment: No Review of Systems - Review of Systems Able to Perform ROS?: Yes Comments:: 06/02/18 21:34 CONSTITUTIONAL: Absent: fever, chills, diaphoresis, generalized weakness, malaise, loss of appetite HEENT: Present: nasal congestion, throat pain Absent: rhinorrhea, nasal congestion, throat pain, throat swelling, difficulty swallowing, mouth swelling, ear pain, eye pain, visual Changes CARDIOVASCULAR: Absent: chest pain, loss of consciousness, palpitations, irregular heart rate, peripheral edema RESPIRATORY: Absent: cough, shortness of breath, dyspnea with exertion, orthopnea, wheezing, stridor, hemoptysis GASTROINTESTINAL: Absent: abdominal pain, abdominal distension, nausea, vomiting, diarrhea, constipation, melena, hematochezia GENITOURINARY: Absent: dysuria, frequency, urgency, hesitancy, hematuria, flank pain, genital pain MUSCULOSKELETAL: Absent: myalgia, arthralgia, joint swelling SKIN: Absent: rash, itching, pallor HEMATOLOGIC/IMMUNOLOGIC: Absent: easy bleeding, easy bruising, lymphadenopathy, frequent infections ENDOCRINE: Absent: unexplained weight gain, unexplained weight loss, heat intolerance, cold intolerance NEUROLOGIC: Present: headache Absent: focal weakness or paresthesias, dizziness, unsteady gait, seizure, mental status changes, bladder or bowel incontinence PSYCHIATRIC: Absent: anxiety, depression, suicidal or homicidal ideation, hallucinations. Is the patient limited Ivorian proficient: No *Physical Exam - Vital Signs Last Vital Signs Temp Pulse Resp BP Pulse Ox 99.2 F 92 H 17 140/59 L 99 06/02/18 20:29 06/02/18 20:29 06/02/18 20:29 06/02/18 20:29 06/02/18 20:29 - Physical Exam Comments: 06/02/18 21:35 GENERAL: Well developed, well nourished. Awake and alert. No acute distress. HEENT: Normocephalic, atraumatic. PERRLA, EOMI. No conjunctival pallor. Sclera are non- icteric. Moist mucous membranes. Oropharynx is with erythema to the tonsils. No exduate or edema. Uvula is midline NECK: Supple. Full ROM. No JVD. Carotid pulses 2+ and symmetric, without bruits. No thyromegaly. No lymphadenopathy. CARDIOVASCULAR: Regular rate and rhythm. No murmurs, rubs, or gallops. Distal pulses are 2+ and symmetric. PULMONARY: No evidence of respiratory distress. Lungs clear to auscultation bilaterally. No wheezing, rales or rhonchi. ABDOMINAL: Soft. Non-tender. Non-distended. No rebound or guarding. No organomegaly. Normoactive bowel sounds. MUSCULOSKELETAL Normal range of motion at all joints. No bony deformities or tenderness. No CVA tenderness. EXTREMITIES: No cyanosis. No clubbing. No edema. No calf tenderness. SKIN: Warm and dry. Normal capillary refill. No rashes. No jaundice. NEUROLOGICAL: Alert, awake, appropriate. Cranial nerves 2-12 intact. No deficits to light touch and temperature in face, upper extremities and lower extremities. No motor deficits in the in face, upper extremities and lower extremities. Normoreflexic in the upper and lower extremities. Normal speech. Toes are down- going bilaterally. Gait is normal without ataxia. PSYCHIATRIC: Cooperative. Good eye contact. Appropriate mood and affect. Moderate Sedation - Procedure Monitoring Vital Signs: Procedure Monitoring Vital Signs Temperature 99.2 F 06/02/18 20:29 Pulse Rate 92 H 06/02/18 20:29 Respiratory Rate 17 06/02/18 20:29 Blood Pressure 140/59 L 06/02/18 20:29 O2 Sat by Pulse Oximetry (%) 99 06/02/18 20:29 Medical Decision Making - Medical Decision Making 06/02/18 21:36 Patient is a 27-year-old female who presents to the ER for 1 day of sore throat. On exam patient with minimal erythema to the tonsils bilaterally. No exudate or edema. Uvula is midline. Rapid strep obtained from [facility] is negative at this time. Most likely a viral pharyngitis. We will give dexamethasone for pain. Still waiting on HIV results. 06/02/18 21:43 Pt is HIV negative DC home I discussed the physical exam findings, ancillary test results and final diagnoses with the patient. I answered all of the patient's questions. The patient was satisfied with the care received and felt comfortable with the discharge plan and treatment plan. The Patient agrees to follow up with the primary care physician/specialist within 24-72 hours. Return precautions were given. *DC/Admit/Observation/Transfer Diagnosis at time of Disposition: Pharyngitis Qualifiers: Pharyngitis/tonsillitis etiology: unspecified etiology Qualified Code(s): J02.9 - Acute pharyngitis, unspecified - Discharge Dispostion Disposition: HOME Condition at time of disposition: Stable Decision to Admit order: No - Referrals Referrals: Uriel Jade MD [Staff Physician] - - Patient Instructions Printed Discharge Instructions: DI for Pharyngitis/Tonsillopharyngitis -- Adult Additional Instructions: You have an upper respiratory infection, or the common cold. Your strep testing was negative today. Please take Motrin 800 mg every 8 hours as needed for pain not to exceed 3000 mg a day. Drink plenty of fluids. Cough drops and warm tea may help your symptoms as well. Please follow up with her primary care doctor this week. Return to the emergency department if you have difficulty breathing, shortness of breath, worsening pain, nausea, vomiting or if you have any changes in your symptoms. 06/02/18 1. As discussed, a screening test for the HIV virus was performed today. Your HIV test is Negative (normal). 2. As discussed, if you engaged in high risk-behavior in the three (3) months prior to this test, you could still potentially be at risk and you will need to be re-tested. 3. As discussed, avoid any high risk behavior (such as unprotected sex or needle-sharing) in the future to minimize the chances of jadiel HIV. - Post Discharge Activity Forms/Work/School Notes: Back to Work
[2018-06-02] MEDS ORDERED: DEXAMETHASONE SOD PHOSPHATE 10 MG/1 ML VIAL ONE (21:37)
== END 2018-06-02 21:51 | disposition home or self-care (01) ==
LOC: JERFT 20:07
DX: J02.9 Acute pharyngitis, unspecified (principal)
CPT/HCPCS: 36415; 87070; 87389; 87880; 99281-25

== ENCOUNTER 2018-06-12 15:27 | Emergency (ER) | payer OTHER ==
[2018-06-12 15:40] VITALS: TEMP 97.7
--- NOTE | 2018-06-12 16:02 | PDOC ---
History of Present Illness - General Chief Complaint: Pain, Acute Stated Complaint: ABD PAIN Time Seen by Provider: 06/12/18 16:02 - History of Present Illness Initial Comments: 28 year old female with history of gastritis presenting with nausea, vomiting, diarrhea, and abdominal pain for the past day after a night of binge drinking. States that she was drinking a lot of vodka last night and is unsure how much but woke up this morning with severe epigastric pain which has been concomitant with nausea, NBNB vomiting and dark diarrhea with dark red material for the past day. Denies an BRBPR but states she has had anal skin tags that have bled in the past. She has had these symptoms before, after binge drinking episodes. 06/12/18 16:15 Past History - Past Medical History Allergies/Adverse Reactions: Allergies Allergy/AdvReac Type Severity Reaction Status Date / Time No Known Allergies Allergy Verified 06/12/18 16:45 Home Medications: Ambulatory Orders NK [No Known Home Medication] 06/12/18 Asthma: No Cancer: No Cardiac Disorders: No COPD: No Diabetes: No GI Disorders: Yes (gastritis) HTN: No Seizures: No Thyroid Disease: No Other medical history: alcohol abuse - Surgical History Appendectomy: Yes - Reproductive History (#): 3 Para: 2 Therapeutic (s) & number: No Spontaneous : 0 - Immunization History Immunization Up to Date: Yes - Suicide/Smoking/Psychosocial Hx Smoking Status: No Smoking History: Never smoked Have you smoked in the past 12 months: No Number of Cigarettes Smoked Daily: 0 If you are a former smoker, when did you quit?: PT DOES NOT SMOKE CIGARETTES, ONLY MARIJUANA PER HER REPORT Information on smoking cessation initiated: No 'Breaking Loose' booklet given: 02/12/15 Hx Alcohol Use: Yes Drug/Substance Use Hx: No Substance Use Type: Marijuana Hx Substance Use Treatment: No Review of Systems - Review of Systems Constitutional: No: Chills, Fever HEENTM: No: Tearing, Recent change in vision, Double Vision Respiratory: No: Cough, Orthopnea, Shortness of Breath Cardiac (ROS): No: Chest Pain, Edema, Irregular Heart Rate ABD/GI: Yes: Diarrhea, Nausea, Rectal Bleeding, Vomiting : No: Burning, Dysuria, Discharge, Frequency Musculoskeletal: No: Back Pain, Gout, Joint Pain Integumentary: No: Lesions, Lumps, Pruritus, Rash Neurological: No: Headache, Numbness, Paresthesia Psychiatric: Yes: Anxiety, Depression Endocrine: No: Unexplained Weight Gain, Unexplained Weight Loss Hematologic/Lymphatic: No: Anemia, Blood Clots, Easy Bleeding *Physical Exam - Vital Signs Last Vital Signs Temp Pulse Resp BP Pulse Ox 97.7 F 100 H 18 119/71 98 06/12/18 15:37 06/12/18 15:37 06/12/18 15:37 06/12/18 15:37 06/12/18 15:37 - Physical Exam General Appearance: Yes: Nourished, Appropriately Dressed. No: Apparent Distress HEENT: positive: EOMI, STEVEN, Normal ENT Inspection, Normal Voice Neck: positive: Trachea midline, Normal Thyroid, Supple. negative: Tender, Rigid Respiratory/Chest: positive: Lungs Clear, Normal Breath Sounds. negative: Chest Tender, Respiratory Distress, Accessory Muscle Use Cardiovascular: positive: Regular Rhythm, Tachycardia. negative: Regular Rate Gastrointestinal/Abdominal: positive: Normal Bowel Sounds, Tender (mild diffuse tendereness), Flat, Soft Rectal Exam: positive: heme negative stool, normal rectal tone. negative: normal exam (large external hemorrhoids, non-bleeding) Lymphatic: negative: Adenopathy, Tenderness Musculoskeletal: positive: Normal Inspection. negative: CVA Tenderness Extremity: positive: Normal Capillary Refill, Normal Inspection, Normal Range of Motion. negative: Tender Integumentary: positive: Normal Color, Dry, Warm Neurologic: positive: Fully Oriented, Alert, Normal Mood/Affect, Normal Response , Motor Strength 5/5 Moderate Sedation - Procedure Monitoring Vital Signs: Procedure Monitoring Vital Signs Temperature 97.7 F 06/12/18 15:37 Pulse Rate 100 H 06/12/18 15:37 Respiratory Rate 18 06/12/18 15:37 Blood Pressure 119/71 06/12/18 15:37 O2 Sat by Pulse Oximetry (%) 98 06/12/18 15:37 ED Treatment Course - LABORATORY CBC & Chemistry Diagram: 06/12/18 16:13 06/12/18 17:36 Medical Decision Making - Medical Decision Making 28 year old female with GERD like history and self admitted peptic ulcer without any endoscopy in the past presenting with nausea, vomiting, and dark red stools for the past day after a night of heavy binge drinking. All labs WNL (including lipase/ amylase), VSS, fecal occult negative and patient much improved with Pepcid, Maalox, protonix, famotidine, and 1L NS. Patient does have large external hemorrhoids (non thrombosed) at the 6 o'clock position that are the likely cause of bleeding. Will DC with Gi follow up and drinking cessation instructions. 06/12/18 18:46 *DC/Admit/Observation/Transfer Diagnosis at time of Disposition: Nausea & vomiting Qualifiers: Vomiting type: unspecified Vomiting Intractability: non-intractable Qualified Code(s): R11.2 - Nausea with vomiting, unspecified Alcoholic gastritis without bleeding Qualifiers: Chronicity: acute Qualified Code(s): K29.20 - Alcoholic gastritis without bleeding - Discharge Dispostion Disposition: HOME Condition at time of disposition: Improved Decision to Admit order: No - Referrals Referrals: Shiv Kam MD [Staff Physician] - - Patient Instructions Printed Discharge Instructions: DI for Alcoholic Gastritis Additional Instructions: Please stop driking alcohol. Please follow up with the GI doctor on this sheet to schedule an endoscopy of your stomahc and see if you have an ulcer. Please return to the ED if you have new or worsening symptoms. - Post Discharge Activity
[2018-06-12] MEDS ORDERED: FAMOTIDINE 20 MG/50 ML IVPB 20 MG/50 ML MG IVPB ONE ×2 (16:13→16:28)
[2018-06-12] MEDS ORDERED: SODIUM CHLORIDE 0.9% 500 ML INFUS.BAG IV ONE (16:13)
[2018-06-12] MEDS ORDERED: ONDANSETRON 4 MG/2 ML VIAL IVPUSH ONE (16:13)
[2018-06-12] MEDS ORDERED: MAG HYDROX/AL HYDROX/SIMETH 30 ML UNIT-DOSE CUP PO ONE (16:13)
[2018-06-12] MEDS ORDERED: SUCRALFATE 1 GM/10 ML UNIT DOSE CUPS PO STA (16:14)
[2018-06-12] MEDS ORDERED: PANTOPRAZOLE SODIUM 40 MG VIAL IVPUSH ONE (16:14)
[2018-06-12] MEDS ORDERED: MAG HYDROX/AL HYDROX/SIMETH 30 ML UNIT-DOSE CUP ONE (16:28)
[2018-06-12] MEDS ORDERED: ONDANSETRON 4 MG/2 ML VIAL ONE (16:28)
[2018-06-12 16:47] LABS: EOS % 0.8 % (0-4.5); HEMATOCRIT 36.5 % (32.4-45.2); HEMOGLOBIN 12.4 GM/dL (10.7-15.3); LYMPH % 31.2 % (8-40); MCHC 33.9 g/dl (32.0-36.0); MEAN CELL VOLUME 82.5 fl (80-96); MEAN PLT VOLUME 9.4 fl (7.5-11.1); MONO % 4.4 % (3.8-10.2); NEUT % 60.6 % (42.8-82.8); PLATELET COUNT 309 K/MM3 (134-434); RBC 4.42 M/mm3 (3.60-5.2); RDW 15.8 % (11.6-15.6); WHITE BLOOD COUNT 6.4 K/mm3 (4.0-10.0)
--- NOTE | 2018-06-12 17:24 | PDOC ---
Attending Attestation - Resident Resident Name: AlfonsoDelmarjoannegregoria - ED Attending Attestation I have performed the following: I have examined & evaluated the patient, The case was reviewed & discussed with the resident, I agree w/resident's findings & plan, Exceptions are as noted - HPI HPI: 06/12/18 19:09 This patient is a 28 year old female with a PMHx of gastritis who is presenting with nausea, vomiting, diarrhea, and abdominal pain for the past day after a night of binge drinking. States that she was drinking a lot of vodka last night and is unsure how much but woke up this morning with severe epigastric pain which has been concomitant with nausea, NBNB vomiting and dark diarrhea with dark red material for the past day. Denies an bright red blood per rectum but states she has had anal skin tags that have bled in the past. She has had these symptoms before, after binge drinking episodes. Social Hx: Marijuana use - Physicial Exam PE: 06/12/18 18:55 see above - Medical Decision Making 06/12/18 17:37 28y F hx of gastritis presents with epigastric burning since last night associated with nonbloody vomoting. pt did notice dark red loose stool. No associated fever/chills, cp, sob, palpitations, back pain. pt endorses binge drinking last night, denies daily etoh use. on exam pt in no distress abd soft nontender card rrr, no mrg pulm cta b/l ext no edema neuro moving all 4 ext spontaneously and symmetrically external hemorroids noted per resident will ck basic labs to r/o anemia, pancreatitis pepcid/malox for suspected gastritis if pt feeling better and labs unremarkable anticipate dc with GI fu 06/12/18 18:55 labs reviewed unremarkable pt feeling improved will dc the pt with pmd/gi fu discussed return precautions and food to avoid for gastritis
[2018-06-12] MEDS ORDERED: PANTOPRAZOLE SODIUM 40 MG/100 ML BAG IVPB ONE (17:48)
[2018-06-12] MEDS ORDERED: SUCRALFATE 1 GM TABLET (FP) ONE (17:48)
[2018-06-12 18:07] LABS: ALBUMIN 3.5 g/dl (3.4-5.0); ALK PHOS 65 U/L (45-117); AMYLASE 62 U/L (25-115); ANION GAP 8 MMOL/L (8-16); BILIRUBIN,TOTAL 0.2 mg/dL (0.2-1); BLOOD UREA NITROGEN 11 mg/dL (7-18); CALCIUM 7.7 mg/dL (8.5-10.1); CHLORIDE 111 mmol/L (98-107); CO2 25 mmol/L (21-32); CREATININE 0.5 mg/dL (0.55-1.3); GLUCOSE,RANDOM 95 mg/dL (74-106); LIPASE 172 U/L (73-393); POTASSIUM 3.8 mmol/L (3.5-5.1); SGOT/AST 15 U/L (15-37); SGPT/ALT 26 U/L (13-61); SODIUM 144 mmol/L (136-145); TOT PROT 7.1 g/dl (6.4-8.2)
[2018-06-12 19:21] VITALS: BP 118/68; PULSE 74
== END 2018-06-12 19:19 | disposition home or self-care (01) ==
LOC: JER 15:27
DX: K29.20 Alcoholic gastritis without bleeding (principal)
CPT/HCPCS: 36415; 80053; 82150; 82272; 83690; 84703; 85025; 99283-25

== ENCOUNTER 2018-08-27 16:38 | Emergency (ER) | payer OTHER ==
[2018-08-27 16:51] VITALS: BP 112/56; PULSE 75; TEMP 98.8; BMI 36.6
--- NOTE | 2018-08-27 17:03 | PDOC ---
History of Present Illness - General Chief Complaint: Sore Throat Stated Complaint: SORE THROAT/EARACHE Time Seen by Provider: 08/27/18 16:56 - History of Present Illness Initial Comments: 08/27/18 17:03 28-year-old female without comorbidities presents for evaluation of fever and sore throat 3 days Past History - Past Medical History Allergies/Adverse Reactions: Allergies Allergy/AdvReac Type Severity Reaction Status Date / Time No Known Allergies Allergy Verified 08/27/18 16:57 Home Medications: Ambulatory Orders NK [No Known Home Medication] 06/12/18 Asthma: No Cancer: No Cardiac Disorders: No COPD: No Diabetes: No GI Disorders: Yes (gastritis) HTN: No Seizures: No Thyroid Disease: No - Surgical History Appendectomy: Yes - Reproductive History (#): 3 Para: 2 Therapeutic (s) & number: No Spontaneous : 0 - Immunization History Immunization Up to Date: Yes - Suicide/Smoking/Psychosocial Hx Smoking Status: No Smoking History: Current some day smoker Have you smoked in the past 12 months: No Number of Cigarettes Smoked Daily: 0 If you are a former smoker, when did you quit?: PT DOES NOT SMOKE CIGARETTES, ONLY MARIJUANA PER HER REPORT Information on smoking cessation initiated: No 'Breaking Loose' booklet given: 02/12/15 Hx Alcohol Use: No Drug/Substance Use Hx: Yes Substance Use Type: Marijuana Hx Substance Use Treatment: No Review of Systems - Review of Systems Constitutional: Yes: Fever HEENTM: Yes: Throat Pain, Difficulty Swallowing *Physical Exam - Vital Signs Last Vital Signs Temp Pulse Resp BP Pulse Ox 98.8 F 75 18 112/56 L 98 08/27/18 16:48 08/27/18 16:48 08/27/18 16:48 08/27/18 16:48 08/27/18 16:48 - Physical Exam Comments: 08/27/18 17:03 HEAD: NC/AT EYES: Conjuntiva clear Ears: Canals and TM's normal NOSE: No d/c THROAT: Moist mucous membrances, oral pharanx clear, uvula midline NECK: Supple without adenopathy CARDIAC: S1 S2 LUNGS: CTA Full and Equal breath sounds ABDOMEN: Soft NT ND MS: Full ROM in all joints without edema NEUROLOGIC: No gross sensory or motor deficits, NVID SKIN: Normal color and temperature no lesions or rashes Medical Decision Making - Medical Decision Making 08/27/18 17:03 She is also here with her daughter who she believes has a sore throat I have swabbed the child. Patient's exam was basically benign 08/27/18 18:01 Mom is here with her 1-year-old daughter for the same symptoms, daughter strep test was negative we'll hold off on antibiotics for now culture was sent. *DC/Admit/Observation/Transfer Diagnosis at time of Disposition: Viral pharyngitis - Discharge Dispostion Disposition: HOME Condition at time of disposition: Stable Decision to Admit order: No - Referrals - Patient Instructions Printed Discharge Instructions: Viral Pharyngitis, DI for Viral Pharyngitis Additional Instructions: Tylenol and Motrin for pain and fever. Warm salt water gargles 5-6 times a day will help with the throat pain. Return to the emergency room for worsening symptoms. Your daughter's rapid strep was negative should she require antibiotics we will call you and you should be treated as well should strep present on culture - Post Discharge Activity
== END 2018-08-27 18:12 | disposition home or self-care (01) ==
LOC: JERFT 16:38
DX: J02.9 Acute pharyngitis, unspecified (principal); B97.89 Other viral agents as the cause of diseases classified elsewhere
CPT/HCPCS: 99281-25

== ENCOUNTER 2018-10-07 19:32 | Emergency (ER) | payer OTHER ==
--- NOTE | 2018-10-07 19:36 | PDOC ---
Rapid Medical Evaluation Time Seen by Provider: 10/07/18 19:35 Medical Evaluation: Allergies Allergy/AdvReac Type Severity Reaction Status Date / Time No Known Allergies Allergy Verified 08/27/18 16:57 10/07/18 19:35 I have performed a brief in-person evaluation of this patient. The patient presents with a chief complaint of: pain with urination x 3 days Pertinent physical exam findings: no cvat b/l I have ordered the following: urine The patient will proceed to the ED for further evaluation.
[2018-10-07 19:46] VITALS: BP 112/78; PULSE 79; TEMP 98.7; BMI 29.1
--- NOTE | 2018-10-07 20:41 | PDOC ---
History of Present Illness - General Chief Complaint: Urinary Problem Stated Complaint: DIFFICULTY URINATING Time Seen by Provider: 10/07/18 19:35 History Source: Patient - History of Present Illness Initial Comments: 10/07/18 20:25 Chief complaint: Urinary pain Patient is a healthy 28-year-old female complaining 3 days of urinary pain. Started after the last time she had sex with her partner of the years. She has history of UTIs in the past, last one 3 months ago. Patient denies any abdominal pain, discharge. No fever, nausea or vomiting. Normal last period was at the end of last month she states she is due for it now. Patient was seen at a clinic this morning for throat and ear pain, she was prescribed Augmentin but has not started it yet. She did not tell them about the urinary symptoms because she was in too much pain from the throat and ear. GENERAL/CONSTITUTIONAL: No fever, weakness. dizziness HEAD, EYES, EARS, NOSE AND THROAT: No change in vision. No ear pain or discharge. No sore throat. CARDIOVASCULAR: No chest pain RESPIRATORY: No shortness of breath or cough GASTROINTESTINAL: No pain, nausea, vomiting, diarrhea or constipation GENITOURINARY: + dysuria MUSCULOSKELETAL: No neck or back pain SKIN: No rash NEUROLOGIC: No headache, vertigo, loss of consciousness, or loss of sensation. GENERAL: The patient is awake, alert, and fully oriented, in no acute distress. HEAD: Normal with no signs of trauma. EYES: Pupils equal, round and reactive to light, sclera anicteric, conjunctiva clear. ENT: pharynx: no erythema, no exudate, uvula midline NECK: supple CHEST: clear, nontender, rr ABD: soft, nontender EXTREMITIES: Normal range of motion, no edema. NEUROLOGICAL: Normal speech, normal gait. SKIN: Warm, Dry Past History - Past Medical History Allergies/Adverse Reactions: Allergies Allergy/AdvReac Type Severity Reaction Status Date / Time No Known Allergies Allergy Verified 08/27/18 16:57 Home Medications: Ambulatory Orders Cephalexin Monohydrate [Keflex -] 1,000 mg PO BID #28 capsule 10/07/18 Asthma: No Cancer: No Cardiac Disorders: No COPD: No Diabetes: No GI Disorders: Yes (gastritis) HTN: No Seizures: No Thyroid Disease: No - Surgical History Appendectomy: Yes - Reproductive History (#): 3 Para: 2 Therapeutic (s) & number: No Spontaneous : 0 - Immunization History Immunization Up to Date: Yes - Suicide/Smoking/Psychosocial Hx Smoking Status: No Smoking History: Never smoked Have you smoked in the past 12 months: No Number of Cigarettes Smoked Daily: 0 If you are a former smoker, when did you quit?: PT DOES NOT SMOKE CIGARETTES, ONLY MARIJUANA PER HER REPORT Information on smoking cessation initiated: No 'Breaking Loose' booklet given: 02/12/15 Hx Alcohol Use: No Drug/Substance Use Hx: No Substance Use Type: Marijuana Hx Substance Use Treatment: No *Physical Exam - Vital Signs Last Vital Signs Temp Pulse Resp BP Pulse Ox 98.7 F 79 18 112/78 100 10/07/18 19:38 10/07/18 19:38 10/07/18 19:38 10/07/18 19:38 10/07/18 19:38 Medical Decision Making - Medical Decision Making 10/07/18 20:41 Patient with 3 days of dysuria, otherwise was seen in a clinic this morning for sore throat and ear pain and started on Augmentin which she has not started yet. No fever, nausea, vomiting. Patient states same partner for 8 years, has history of UTIs, last one 3 months ago. Patient is due for her.. Abdominal exam is benign. Patient will get screening for , UA, urine culture, STDs. 10/07/18 21:45 Patient is not , UA show some signs of infection and given clinical picture will treat, last urine culture showed sensitivity to cephalosporins, will start on Keflex. STDs are pending. *DC/Admit/Observation/Transfer Diagnosis at time of Disposition: UTI (urinary tract infection) Qualifiers: Urinary tract infection type: acute cystitis Hematuria presence: without hematuria Qualified Code(s): N30.00 - Acute cystitis without hematuria - Discharge Dispostion Disposition: HOME Condition at time of disposition: Stable Decision to Admit order: No - Prescriptions Prescriptions: Cephalexin Monohydrate [Keflex -] 1,000 mg PO BID #28 capsule - Referrals - Patient Instructions Printed Discharge Instructions: DI for Urinary Tract Infection (UTI) Additional Instructions: Drink 2-3 L of water daily Take the Keflex 1000 mg twice a day for 7 days take Acidophilus to help prevent yeast infection or stomach upset Return ER if fever, vomiting, feeling sicker Follow-up with your doctor in 2-3 days - Post Discharge Activity
[2018-10-07 21:15] LABS: EPI CELLS 18.1 /HPF (0-5/HPF); HYALINE CASTS 30 /lpf (0-8); PH,URINE 5.5 (5.0-8.0); URINE APPEARANCE CLEAR; URINE BACTERIA 441.1 /hpf (NEGATIVE); URINE BILIRUBIN NEGATIVE (NEGATIVE); URINE COLOR YELLOW; URINE GLUCOSE (UA) NEGATIVE (NEGATIVE); URINE KETONE 2+ (NEGATIVE); URINE LEUK ESTERASE TRACE (NEGATIVE); URINE NITRITE NEGATIVE (NEGATIVE); URINE PROTEIN TRACE (NEGATIVE); URINE RBC 5 /hpf (0-4); URINE WBC 17 /hpf (0-5)
[2018-10-07] MEDS ORDERED: CEPHALEXIN MONOHYDRATE 500 MG CAPSULE (UD) PO ONE (21:52)
[2018-10-07] MEDS ORDERED: CEPHALEXIN MONOHYDRATE 500 MG CAPSULE (UD) ONE (21:55)
== END 2018-10-07 21:57 | disposition home or self-care (01) ==
LOC: JERFT 19:32
DX: N30.00 Acute cystitis without hematuria (principal)
CPT/HCPCS: 36415; 81003; 84703; 87086; 87491; 87591; 99281-25

== ENCOUNTER 2018-10-22 20:53 | Emergency (ER) | payer OTHER ==
[2018-10-22 20:57] VITALS: BP 122/59; PULSE 67; TEMP 98.7; BMI 34.1
[2018-10-22] MEDS ORDERED: METOCLOPRAMIDE HCL INJECTION 10 MG/2 ML VIAL IVPUSH ONE (21:24)
[2018-10-22] MEDS ORDERED: SODIUM CHLORIDE 1,000 ML IV STA (21:24)
[2018-10-22] MEDS ORDERED: KETOROLAC TROMETHAMINE 30 MG/1 ML VIAL IVPUSH ONE (21:25)
--- NOTE | 2018-10-22 21:38 | PDOC ---
History of Present Illness - General Chief Complaint: Headache Stated Complaint: HEADACE/BUMP ON HEAD Time Seen by Provider: 10/22/18 21:17 History Source: Patient Exam Limitations: No Limitations - History of Present Illness Initial Comments: 10/22/18 21:27 HISTORY OF PRESENT ILLNESS: 28-year-old woman denies medical history presents emergency department for evaluation of right-sided headache which started this morning upon awaking. Patient is taken Tylenol with minimal relief of symptoms. Patient reports photophobia but denies any phonophobia. She denies any dizziness , blurry vision, nausea, vomiting. Patient states she started her menstrual cycle today. No recent travel or sick contacts. PAST MEDICAL HISTORY: Denies past medical history SURGICAL HISTORY: Denies ALLERGIES: No known drug allergies REVIEW OF SYSTEMS General/Constitutional: Denies fever or chills. Denies weakness, weight change. HEENT: Denies change in vision. Denies ear pain or discharge. Denies sore throat. Cardiovascular: Denies chest pain or shortness of breath. Respiratory: Denies cough, wheezing, or hemoptysis. Gastrointestinal: Denies nausea, vomiting, diarrhea or constipation. Denies rectal bleeding. Genitourinary: Denies dysuria, frequency, or change in urination. Musculoskeletal: Denies joint or muscle swelling or pain. Denies neck or back pain. Skin and breasts: Denies rash or easy bruising. Neurologic:see HPI Psychiatric: Denies depression or anxiety. Endocrine: Denies increased thirst. Denies abnormal weight change. Hematologic/Lymphatic: Denies anemia, easy bleeding, or history of blood clots. Allergic/Immunologic: Denies hives or skin allergy. Denies latex allergy. PHYSICAL EXAM General Appearance: Well-appearing, appropriately dressed. No apparent distress , no intoxication. HEENT: EOMI, PERRLA, normal ENT inspection, normal voice, TMs normal, pharynx normal. No conjunctival pallor. No photophobia, scleral icterus. Neck: Supple. Trachea midline. No tenderness, rigidity, carotid bruit, stridor , lymphadenopathy, or thyromegaly. Respiratory/Chest: Lungs CTAB. No shortness of breath, chest tenderness, respiratory distress, accessory muscle use. No crackles, rales, rhonchi, stridor , wheezing, dullness Cardiovascular: RRR. S1, S2. No JVD, murmur, bradycardia, tachycardia. Vascular Pulses: Dorsalis-Pedis (R): 2+, Dorsalis-Pedis (L): 2+ Gastrointestinal/Abdominal: Normal bowel sounds. Abdomen soft, non-distended. No tenderness or rebound tenderness. No organomegaly, pulsatile mass, guarding, hernia, hepatomegaly, splenomegaly. Lymphatic: No adenopathy, tenderness. Musculoskeletal/Extremities: Normal inspection. FROM of all extremities, normal capillary refill. Pelvis Stable. No CVA tenderness. No tenderness to extremities, pedal edema, swelling, erythema or deformity. Integumentary: Appropriate color, dry, warm. 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 Fully oriented, alert. Appropriate mood/affect. Motor strength 5/5. No appreciable EOM palsy, facial droop or sensory deficit. Past History - Past Medical History Allergies/Adverse Reactions: Allergies Allergy/AdvReac Type Severity Reaction Status Date / Time No Known Allergies Allergy Verified 10/22/18 20:55 Home Medications: Ambulatory Orders NK [No Known Home Medication] 10/22/18 Asthma: No Cancer: No Cardiac Disorders: No COPD: No Diabetes: No GI Disorders: Yes (gastritis) HTN: No Seizures: No Thyroid Disease: No - Surgical History Appendectomy: Yes - Reproductive History (#): 3 Para: 2 Therapeutic (s) & number: No Spontaneous : 0 - Immunization History Immunization Up to Date: Yes - Suicide/Smoking/Psychosocial Hx Smoking Status: No Smoking History: Never smoked Have you smoked in the past 12 months: No Number of Cigarettes Smoked Daily: 0 If you are a former smoker, when did you quit?: PT DOES NOT SMOKE CIGARETTES, ONLY MARIJUANA PER HER REPORT 'Breaking Loose' booklet given: 02/12/15 Hx Alcohol Use: No Drug/Substance Use Hx: Yes (marajuana) Substance Use Type: Marijuana Hx Substance Use Treatment: No *Physical Exam - Vital Signs Last Vital Signs Temp Pulse Resp BP Pulse Ox 98.7 F 67 18 122/59 L 98 10/22/18 20:55 10/22/18 20:55 10/22/18 20:55 10/22/18 20:55 10/22/18 20:55 Medical Decision Making - Medical Decision Making 10/22/18 21:38 A/P: 28-year-old woman with right-sided headache starting today Cranial nerves II through XII grossly intact Gait is steady No focal deficits present Interpregnancy Normal saline 1 L bolus Benadryl 25 mg IV Reglan 10 mg IV If is negative I will add Toradol 30 mg IV Reassess 10/22/18 22:39 Patient reports her pain is currently 3/10 which she describes is acceptable. I' ll discharge the patient home to follow-up with her primary doctor for continued evaluation of her migraines. *DC/Admit/Observation/Transfer Diagnosis at time of Disposition: Menstrual migraine Qualifiers: Status migrainosus presence: without status migrainosus Intractability: not intractable Qualified Code(s): G43.829 - Menstrual migraine, not intractable, without status migrainosus - Discharge Dispostion Disposition: HOME Condition at time of disposition: Stable Decision to Admit order: No - Referrals - Patient Instructions Additional Instructions: Take Tylenol or Motrin as needed for headaches. Keep a diary of all food to eat and activities performed prior to headaches starting. Make an appointment with her primary doctor for reevaluation within the next week. Return to emergency department for worsening headache, blurry vision, dizziness , nausea, vomiting or any other concerns. Thank you very much for for choosing us to provide emergent health care needs. - Post Discharge Activity Forms/Work/School Notes: Back to Work
[2018-10-22] MEDS ORDERED: KETOROLAC TROMETHAMINE 30 MG/1 ML VIAL ONE (21:44)
[2018-10-22] MEDS ORDERED: METOCLOPRAMIDE HCL INJECTION 10 MG/2 ML VIAL ONE (21:44)
== END 2018-10-22 22:56 | disposition home or self-care (01) ==
LOC: JERFT 20:53
PROC: 3E033GC Introduction of Other Therapeutic Substance into Peripheral Vein, Percutaneous Approach (ICD-10-PCS; principal; 2018-10-22)
PROC: 3E033GC Introduction of Other Therapeutic Substance into Peripheral Vein, Percutaneous Approach (ICD-10-PCS; 2018-10-22)
PROC: 3E0333Z Introduction of Anti-inflammatory into Peripheral Vein, Percutaneous Approach (ICD-10-PCS; 2018-10-22)
DX: G43.829 Menstrual migraine, not intractable, without status migrainosus (principal)
CPT/HCPCS: 84703; 96374; 96375; 99281-25; J7030

== ENCOUNTER 2018-10-27 21:01 | Emergency (ER) | payer OTHER | END 2018-10-28 04:39 | disposition home or self-care (01) | LOC: JER 10-28 04:39 | DX: F43.8 Other reactions to severe stress (principal) ==

== ENCOUNTER 2018-10-30 15:49 | Emergency (ER) | payer OTHER | END 2018-10-30 17:24 | disposition home or self-care (01) | LOC: JER 15:49 ==

== ENCOUNTER 2019-02-19 18:03 | Emergency (ER) | payer OTHER ==
[2019-02-19 18:09] VITALS: BP 117/52; PULSE 82; TEMP 98.3; BMI 34.7
--- NOTE | 2019-02-19 18:13 | PDOC ---
History of Present Illness - General Chief Complaint: Bite Stated Complaint: BITE Time Seen by Provider: 02/19/19 18:12 History Source: Patient Exam Limitations: No Limitations - History of Present Illness Initial Comments: 02/19/19 18:15 HPI: While she was in the park today this patient developed a left wrist redness that she is in fear of an insect bite. She does not recall anything biting her. Chief Compliant: Left wrist redness Pain location: Left wrist Duration: Modifying factors: Quality: Radiating: Severity: Time: PMH: Denies FH: Pt has not recently traveled outside the country in the last 30 days. Pt has not been in contact with people who have traveled out of the country, in contact with people who have been ill with fever, n, v, d. SH: smoking use: NONE illicit drug use: NONE alcohol use: NONE employment/educational status: sexual history: PSH: Denies Past History - Past Medical History Allergies/Adverse Reactions: Allergies Allergy/AdvReac Type Severity Reaction Status Date / Time No Known Allergies Allergy Verified 02/19/19 18:09 Home Medications: Ambulatory Orders Levothyroxine Sodium [Levoxyl] 125 mcg PO DAILY 10/30/18 Asthma: No Cancer: No Cardiac Disorders: No COPD: No Diabetes: No GI Disorders: Yes (gastritis) HTN: No Psychiatric Problems: Yes (anxiety) Seizures: No Thyroid Disease: Yes - Surgical History Appendectomy: Yes - Reproductive History (#): 3 Para: 2 Therapeutic (s) & number: No Spontaneous : 0 - Immunization History Immunization Up to Date: Yes - Psycho Social/Smoking Cessation Hx Smoking Status: No Smoking History: Never smoked Have you smoked in the past 12 months: No Number of Cigarettes Smoked Daily: 0 If you are a former smoker, when did you quit?: PT DOES NOT SMOKE CIGARETTES, ONLY MARIJUANA PER HER REPORT 'Breaking Loose' booklet given: 02/12/15 Hx Alcohol Use: No Drug/Substance Use Hx: No Substance Use Type: Marijuana Hx Substance Use Treatment: No Review of Systems - Review of Systems Able to Perform ROS?: Yes Comments:: 02/19/19 18:15 General statement: Left wrist redness Hematology: neg history of bleeding/blood thinners Skin: Neg for lesions, rash, bruising. With the exception of left wrist HEENT: Neg symptoms Respiratory: Neg SOB or difficulty in breathing Cardiac: Neg chest pain GI: Neg pain, n/v : Neg problems on voiding MS: Neg for joint pain/stiffness, no edema Neuro: Neg for LOC, weakness, Endocrine: Neg for excess thirst/hunger, cold/heat intolerance, excess sweating Allergies: Neg for allergies 02/19/19 18:23 *Physical Exam - Vital Signs Last Vital Signs Temp Pulse Resp BP Pulse Ox 98.3 F 82 18 117/52 L 98 02/19/19 18:05 02/19/19 18:05 02/19/19 18:05 02/19/19 18:05 02/19/19 18:05 - Physical Exam Comments: 02/19/19 18:15 General Appearance: This well appearing 28-year-old female V/S: hemodynamically stable, afebrile Skin: WNL of pt's skin color, no signs of pallor, mottling, cyanosis with the left wrist slightly red no sign of stinger or site of entry. Just appears red no cellulitis, no wound, ability to have flexion and extension Head:symmetrical Eyes: EOM's intact, PERRLA Ears: denies pain Nose: patent Throat: lips, teeth, gums, tongue, buccal mucos pink and moist Lungs: Chest symmetry equal. Cap refill <3 seconds. Lung sounds clear Cardiac: PMI at R 4MCL space, pos S1 and S2, regular rate. Abdomen: Soft, round, nontender : Not observed Muscularskeletal: Gait steady, ambulated in to ER, no edema +PMS Neuro: AAOx3, cognitively intact, speech clear and appropriate. 02/19/19 18:24 Medical Decision Making - Medical Decision Making 02/19/19 18:24 Patient seen and examined. Patient with some redness to the left wrist she states was found after being in the park but does not remember if anything bit for her if she had seen it. At this time I have offered her a Benadryl and told her to go home and use ice and use Benadryl at home and monitored for any kinds of increased redness. There does not seem to be a point of entry. Discharge - Discharge Information Problems reviewed: Yes Clinical Impression/Diagnosis: Skin abrasion Condition: Stable Disposition: HOME - Follow up/Referral - Patient Discharge Instructions Patient Printed Discharge Instructions: How to Care for an Insect Bite or Sting Additional Instructions: discharge instructions 1. Please follow up with your primary physician within the next few days and explain that you have been seen here in the Emergency Room. 2. If you experience any worsening of symptoms, please return to the ER 3. Rest 4. Drink plenty of water Keep ice on your wrist - Post Discharge Activity
[2019-02-19] MEDS ORDERED: diphenhydrAMINE HCL 25 MG CAPSULE (FP) PO ONE ×2 (18:17→18:21)
== END 2019-02-19 18:20 | disposition home or self-care (01) ==
LOC: JERFT 18:03
DX: S60.812A Abrasion of left wrist, initial encounter (principal); X58.XXXA Exposure to other specified factors, initial encounter; Y93.89 Activity, other specified; Y92.830 Public park as the place of occurrence of the external cause; Y99.8 Other external cause status
CPT/HCPCS: 99281-25

== ENCOUNTER 2019-06-22 00:06 | Emergency (ER) | payer OTHER ==
[2019-06-22 01:02] VITALS: TEMP 98.3; BMI 37.6
[2019-06-22] MEDS ORDERED: ASPIRIN 81 MG CHEWABLE TABLETS PO ONE (01:09)
--- NOTE | 2019-06-22 01:09 | PDOC ---
History of Present Illness - General Chief Complaint: Chest Pain Stated Complaint: SOB,CHEST PAIN/HX OF ASTHMA Time Seen by Provider: 06/22/19 00:57 History Source: Patient Exam Limitations: No Limitations - History of Present Illness Initial Comments: Annie Longo is a 29 yo Obese F w a hx of hypothyroidism on levothyroxine and asthma who presents to the [facility] er with 1 hour of on and off chest discomfort associated with palpitations and shortness of breath. She states her chest discomfort began when she was lying on a bed and felt like a flickering sensation. She has not taken anything for the pain. She denies associated lightheadedness, vomiting, worsening with physical activity, or diaphoresis. Denies fevers, chills, leg swelling. PCP: Ramandeep Ji PSH: None reported Allergies: NKA, NKDA Social Hx: Denies smoking, drinking, or other substance abuse. Past History - Past Medical History Allergies/Adverse Reactions: Allergies Allergy/AdvReac Type Severity Reaction Status Date / Time No Known Allergies Allergy Verified 06/22/19 01:02 Home Medications: Ambulatory Orders Levothyroxine Sodium [Levoxyl] 125 mcg PO DAILY 10/30/18 Albuterol 0.083% Nebulizer Rocío [Ventolin 0.083%] 1 neb NEB QID PRN 06/22/19 Albuterol Sulfate Inhaler - [Ventolin Hfa Inhaler -] 1 - 2 inh PO QID PRN Asthma: No Cancer: No Cardiac Disorders: No COPD: No Diabetes: No GI Disorders: Yes (gastritis) HTN: No Psychiatric Problems: Yes (anxiety) Seizures: No Thyroid Disease: Yes - Surgical History Appendectomy: Yes - Reproductive History (#): 3 Para: 2 Therapeutic (s) & number: No Spontaneous : 0 - Immunization History Immunization Up to Date: Yes - Psycho Social/Smoking Cessation Hx Smoking Status: No Smoking History: Never smoked Have you smoked in the past 12 months: No Number of Cigarettes Smoked Daily: 0 If you are a former smoker, when did you quit?: PT DOES NOT SMOKE CIGARETTES, ONLY MARIJUANA PER HER REPORT Information on smoking cessation initiated: No 'Breaking Loose' booklet given: 02/12/15 Hx Alcohol Use: No Drug/Substance Use Hx: No Substance Use Type: Marijuana Hx Substance Use Treatment: No Review of Systems - Review of Systems Able to Perform ROS?: Yes Comments:: CONSTITUTIONAL: Absent: fever, no chills, no fatigue EYES: Absent: visual changes ENT: Absent: ear pain, no sore throat CARDIOVASCULAR: Present: chest pain, palpitations RESPIRATORY: Present: SOB Absent: cough GI: Absent: abdominal pain, no nausea, no vomiting, no constipation, no diarrhea GENITOURINARY: Absent: dysuria, no frequency, no hematuria MUSKULOSKELETAL: Absent: back pain, no arthralgia, no myalgia SKIN: Absent: rash NEURO: Absent: headache *Physical Exam - Vital Signs Last Vital Signs Temp Pulse Resp BP Pulse Ox 98.3 F 76 17 140/61 98 06/22/19 00:10 06/22/19 00:10 06/22/19 00:10 06/22/19 00:10 06/22/19 00:10 - Physical Exam GENERAL: Well-appearing, well-nourished. No apparent distress. HEENT: Normocephalic, atraumatic. PERRL, EOM intact. CARDIOVASCULAR: Normal S1, S2. Regular rate and rhythm. PULMONARY: Decreased air entry. Mild evidence of respiratory distress. Lungs clear to auscultation bilaterally. No wheezing, rales or rhonchi. ABDOMEN: Soft, non-distended, non-tender. EXTREMITIES: Normal ROM in all four extremities. No gross deformities. SKIN: Warm, dry. No rash NEUROLOGICAL: No focal neurological deficits. ED Treatment Course - LABORATORY CBC & Chemistry Diagram: 06/22/19 03:24 06/22/19 03:24 Medical Decision Making - Medical Decision Making Annie Longo is a 29 yo Obese F w a hx of hypothyroidism on levothyroxine and asthma who presents to the [facility] er with 1 hour of on and off chest discomfort associated with palpitations and shortness of breath. She states her chest discomfort began when she was lying on a bed and felt like a flickering sensation. She has not taken anything for the pain. She denies associated lightheadedness, vomiting, worsening with physical activity, or diaphoresis. Denies fevers, chills, leg swelling. Vital Signs Temp Pulse Resp BP Pulse Ox 98.3 F 76 17 140/61 98 06/22/19 00:10 06/22/19 00:10 06/22/19 00:10 06/22/19 00:10 06/22/19 00:10 DDx IBNLT: Asthma, electrolyte/metabolic disturbance, PNA, pneumothorax, Thyroid abnormality, arrythmia, ACS Plan: Labs, EKG, supportive care, duoneb, re-assess. Labs: Elevated TSH, HCG negative, trop negative. EKG: NS, no arrythmia, no ST elevations or depressions, no A-fib Re-assessment: Patient feels better after ED supportive care. I have spoken to her about her elevated TSH level and told her this mght be what is causing her symptoms. I ave educated her about the need to follow up with Dr. Aguilar as an outpatient to adjust her levothyroxine dosage. She states she had an appointment but missed it. She says she can schedule an appointment today and see him in the next 2 days. Dispo: Home with Endo follow up. Discharge - Discharge Information Problems reviewed: Yes Clinical Impression/Diagnosis: Elevated TSH Condition: Improved Disposition: HOME - Admission No - Follow up/Referral Referrals: Ramandeep Willis MD [Primary Care Provider] - Vincent Aguilar MD [Staff Physician] - - Patient Discharge Instructions Patient Printed Discharge Instructions: Thyroid Stimulating Hormone, Thyroid Autoantibody Tests Additional Instructions: You came into the er with shortness of breath and palpitations. We looked at your bloodwork which showed you have an elevated TSH. It is extremely important for you to schedule a follow up appoinment with your ticket agent Dr. Aguilar in the next 24 to 48 hours so you can re-adjust the dosage on your levothyroxine. Come back to the ER immediately with any new or worsening concerns. Thank you for coming to the [facility] ER. We hope you feel better soon! Print Language: [place] - Post Discharge Activity
[2019-06-22] MEDS ORDERED: KETOROLAC TROMETHAMINE 60 MG/2 ML VIAL IM ONE (01:16)
[2019-06-22] MEDS ORDERED: SODIUM CHLORIDE 0.9% 500 ML INFUS.BAG IV ONE (01:16)
[2019-06-22] MEDS ORDERED: ALBUTEROL SO4 2.5/IPRATROPIUM 0.5 INH SOL 3 ML VIAL.NEB. NEB ONE ×2 (01:16→02:09)
--- NOTE | 2019-06-22 01:46 | PDOC ---
Documentation entered by Tung Kaplan SCRIBE, acting as scribe for Kathi Stern DO. Kathi Stern DO: This documentation has been prepared by the Eusebio ortiz Elijah, SCRIBE, under my direction and personally reviewed by me in its entirety. I confirm that the documentation accurately reflects all work, treatment, procedures, and medical decision making performed by me. Attending Attestation - Resident Resident Name: Dion Roblero - ED Attending Attestation I have performed the following: I have examined & evaluated the patient, The case was reviewed & discussed with the resident, I agree w/resident's findings & plan - HPI HPI: 06/22/19 01:27 Patient is a 29 year old female with a significant pmh of asthma who presents today with SOB for the last x3 days. Patient reports that this CP is sharp in nature and is associated with nausea and SOB. Patient notes she took x2 puffs of her inhaler x6 hours ago and it did not alleviate any of her symptoms. Of note patient notes her kids at home are sick. Denies fever. Allergies: NKA PCP: Dr. De La Fuente - Physicial Exam PE: 06/22/19 01:33 Constitutional: Awake, alert, oriented. No acute distress. Head: Normocephalic. Atraumatic Eyes: PERRL. EOMI. Conjunctivae are not pale. ENT: Mucous membranes are moist and intact. Posterior pharynx without exudates or erythema. Uvula midline. Neck: Supple. Full ROM. No lymphadenopathy. Cardiovascular: Regular rate. Regular rhythm. S1, S2 regular. Distal pulses are 2+ and symmetric. Pulmonary/Chest: +Poor Inspiratory effort. Clear to auscultation bilaterally No wheezing, rales or rhonchi. Abdominal: Soft and non-distended. There is no tenderness. No rebound, guarding or rigidity. No organomegaly. No palpable masses. Good bowel sounds. Back: No CVA tenderness. Musculoskeletal: No edema. No cyanosis. No clubbing. Full range of motion in all extremities. Nocalf tenderness. Radial/pedal pulses are intact and 2+ bilaterally Skin: Skin is warm and dry. No petechiae. No purpura. Neurological: Alert and oriented to person, place, and time. Cranial nerves II -XII are grossly intact. Normal speech. Strength is grossly symmetric. No sensory deficits. Psychiatric: Good eye contact. Normal interaction, affect and behavior. - Medical Decision Making 06/22/19 01:43 a/p: 29yo female with cp, sob, and pain -pt states sharp pain -no pleuritic component -hx of asthma -states she used her inhaler without relief x 2 puffs tonight around 730p -states kids are sick at home with flu like symptoms -will send labs, ekg, cxr -will give neb -will monitor and reassess 06/22/19 02:20 pt signed out pending labs and further eval Heart Score/ECG Review - ECG Intrepretation Comment:: 06/22/19 01:45 sinus at 76, nl axis, nl interval, no acute st/t wave findings
[2019-06-22] MEDS ORDERED: KETOROLAC TROMETHAMINE 30 MG/1 ML VIAL IVPUSH ONE (01:52)
[2019-06-22] MEDS ORDERED: KETOROLAC TROMETHAMINE 30 MG/1 ML VIAL ONE (02:09)
[2019-06-22 03:40] LABS: EOS % 1.8 % (0-4.5); HEMOGLOBIN 11.1 GM/dL (10.7-15.3); MCH 25.1 pg (25.7-33.7); MCHC 32.6 g/dl (32.0-36.0); MEAN PLT VOLUME 9.5 fl (7.5-11.1); MONO % 5.3 % (3.8-10.2); NEUT % 55.9 % (42.8-82.8); PLATELET COUNT 269 K/MM3 (134-434); RBC 4.41 M/mm3 (3.60-5.2); RDW 17.1 % (11.6-15.6); WHITE BLOOD COUNT 6.7 K/mm3 (4.0-10.0)
[2019-06-22 06:13] LABS: ALBUMIN 3.6 g/dl (3.4-5.0); BILIRUBIN,TOTAL 0.1 mg/dL (0.2-1); BLOOD UREA NITROGEN 16.2 mg/dL (7-18); CALCIUM 8.6 mg/dL (8.5-10.1); CREATININE 0.6 mg/dL (0.55-1.3); POTASSIUM 4.3 mmol/L (3.5-5.1); TOT PROT 7.3 g/dl (6.4-8.2)
[2019-06-22 06:28] VITALS: BP 105/51; PULSE 67
[2019-06-22 06:41] LABS: PH,URINE 7.5 (5.0-8.0); URINE APPEARANCE CLEAR; URINE BILIRUBIN NEGATIVE (NEGATIVE); URINE COLOR YELLOW; URINE GLUCOSE (UA) NEGATIVE (NEGATIVE); URINE KETONE NEGATIVE (NEGATIVE); URINE LEUK ESTERASE NEGATIVE (NEGATIVE); URINE NITRITE NEGATIVE (NEGATIVE); URINE PROTEIN NEGATIVE (NEGATIVE)
--- NOTE | 2019-06-22 14:26 | EKG ---
Test Reason : Blood Pressure : / mmHG Vent. Rate : 076 BPM Atrial Rate : 076 BPM P-R Int : 138 ms QRS Dur : 070 ms QT Int : 372 ms P-R-T Axes : 047 042 018 degrees QTc Int : 418 ms NORMAL SINUS RHYTHM WITH SINUS ARRHYTHMIA NORMAL ECG WHEN COMPARED WITH ECG OF 30-OCT-2018 15:50, NO SIGNIFICANT CHANGE WAS FOUND Confirmed by ALISHA MONTES MD ([id number]) on 06/22/2019 2:25:44 PM Referred By: Confirmed By:ALISHA MONTES MD
== END 2019-06-22 06:51 | disposition home or self-care (01) ==
LOC: JER 00:06
PROC: 3E0F7GC Introduction of Other Therapeutic Substance into Respiratory Tract, Via Natural or Artificial Opening (ICD-10-PCS; principal; 2019-06-22)
PROC: 3E0333Z Introduction of Anti-inflammatory into Peripheral Vein, Percutaneous Approach (ICD-10-PCS; 2019-06-22)
DX: R94.6 Abnormal results of thyroid function studies (principal); E03.9 Hypothyroidism, unspecified; J45.909 Unspecified asthma, uncomplicated
CPT/HCPCS: 36415; 71046-TC-FY; 80053; 81003; 83735; 84443; 84484; 84703; 85025; 93005; 93010; 99284-25

== ENCOUNTER 2019-06-24 23:46 | Emergency (ER) | payer OTHER ==
[2019-06-25 00:04] VITALS: BP 123/53; PULSE 89; TEMP 98.6; BMI 39.8
--- NOTE | 2019-06-25 00:58 | PDOC ---
History of Present Illness <Sujey Millard - Last Filed: 06/25/19 03:52> - History of Present Illness Initial Comments: HPI: 29yo F with no PMH or asthma, hypothyroidism, gastritis presenting with shortness of breath. This does not feel like her asthma. Patient has felt this way for the past eight or nine months. She has had an extensive workup including CT scans, xrays, blood work, and EKGs which have all been normal. She presented to this ED three days ago with the same complaints and found to have elevated TSH. She was instructed to follow up with her doctor, but has not yet been able to do so because she did not have an appointment. No hemoptysis, no recent surgical history, no recent immobilization, no hormone use, no history of DVT or PE. Reports chest pain in association with her shortness of breath. Reports epigastric abdominal pain, nausea, and vomiting. No fever, but endorses chills. ROS: Constitutional: no fever, +chills HEENT: no throat pain, no dysphagia Cardiovascular: +chest pain, no palpitations Respiratory: no cough, +shortness of breath Gastrointestinal: +nausea, +abdominal pain Genitourinary: no dysuria, no hematuria Musculoskeletal: no myalgia, no arthralgia Skin: no rash, no itching Neurologic: no headache, no weakness Psych: no agitation, no anxiety PE: General: Awake, alert, and fully oriented, in no acute distress Head: No signs of trauma Eyes: EOMI, sclera anicteric ENT: Moist mucus membranes Neck: Normal ROM, supple Lungs: Lungs clear, Normal breath sounds Cardio: Regular rhythm, S1 and S2 present Abdomen: Soft, nontender. No guarding, no rebound, no masses Extremities: Normal range of motion, Distal pulses present, No calf tenderness SKIN: Warm, Dry, normal turgor Neurologic: Cranial nerves II through XII grossly intact. Normal speech ED Course/MDM: DDX including but not limited to ACS, PE, PNA, anemia, metabolic derangement, psych No signs of airway compromise on exam VS stable with no tachycardia or hypoxia Labs, EKG, CXR Dupato Grya EKG: rate 65, QTc 403, NSR CXR as read by radiology on 06/22/19:"Chest. 2 Views of the chest. Comparison study. October 27, 2018 Findings Unremarkable contour of the cardiomediastinal silhouette. Lungs edwards appear clear, without evidence of infiltrate, atelectasis. Soft tissues of the neck projecting over the lung apices. Pulmonary vasculature is normal. No evidence of pleural effusion, or pneumothorax. No evidence of bulky hilar adenopathy. Visualized bony structures appear intact. IMPRESSION: No evidence of active pulmonary disease. " 06/25/19 03:03 CBC WBC 6.7 K/mm3 (4.0-10.0) 06/25/19 01:55 RBC 4.53 M/mm3 (3.60-5.2) 06/25/19 01:55 Hgb 11.4 GM/dL (10.7-15.3) 06/25/19 01:55 Hct 35.1 % (32.4-45.2) 06/25/19 01:55 MCV 77.3 fl (80-96) L 06/25/19 01:55 MCH 25.1 pg (25.7-33.7) L 06/25/19 01:55 MCHC 32.4 g/dl (32.0-36.0) 06/25/19 01:55 RDW 17.2 % (11.6-15.6) H 06/25/19 01:55 Plt Count 265 K/MM3 (134-434) 06/25/19 01:55 MPV 9.1 fl (7.5-11.1) 06/25/19 01:55 Absolute Neuts (auto) 4.2 K/mm3 (1.5-8.0) 06/25/19 01:55 Neutrophils % 62.9 % (42.8-82.8) 06/25/19 01:55 Lymphocytes % 29.7 % (8-40) 06/25/19 01:55 Monocytes % 6.1 % (3.8-10.2) 06/25/19 01:55 Eosinophils % 0.5 % (0-4.5) 06/25/19 01:55 Basophils % 0.8 % (0-2.0) 06/25/19 01:55 Nucleated RBC % 0 % (0-0) 06/25/19 01:55 No leukocytosis CMP Sodium 141 mmol/L (136-145) 06/25/19 01:55 Potassium 3.9 mmol/L (3.5-5.1) 06/25/19 01:55 Chloride 108 mmol/L (98-107) H 06/25/19 01:55 Carbon Dioxide 27 mmol/L (21-32) 06/25/19 01:55 Anion Gap 6 MMOL/L (8-16) L 06/25/19 01:55 BUN 16.4 mg/dL (7-18) 06/25/19 01:55 Creatinine 0.6 mg/dL (0.55-1.3) 06/25/19 01:55 Est GFR (CKD-EPI)AfAm 143.77 06/25/19 01:55 Est GFR (CKD-EPI)NonAf 124.04 06/25/19 01:55 Random Glucose 95 mg/dL (74-106) 06/25/19 01:55 Calcium 9.3 mg/dL (8.5-10.1) 06/25/19 01:55 Total Bilirubin 0.2 mg/dL (0.2-1) 06/25/19 01:55 AST 15 U/L (15-37) 06/25/19 01:55 ALT 20 U/L (13-61) 06/25/19 01:55 Alkaline Phosphatase 73 U/L (45-117) 06/25/19 01:55 Troponin I < 0.02 ng/ml (0.00-0.05) 06/25/19 01:55 Total Protein 7.8 g/dl (6.4-8.2) 06/25/19 01:55 Albumin 3.7 g/dl (3.4-5.0) 06/25/19 01:55 Lipase 146 U/L (73-393) 06/25/19 01:55 TSH 6.95 uIU/ml (0.358-3.74) H 06/25/19 01:55 Electrolytes unremarkable Normal Cr No transaminitis TSH elevated, but lower than three days ago Tpn undetectable Normal lipase Los suspicion for acute cardiopulmonary process Unknown what is causing patient's symptoms. With a BMI of 40, this may be obesity hypoventilation Patient to follow up with her dyno technician Return precautions Stable for discharge <Jessi Boswell - Last Filed: 06/25/19 08:59> - General Chief Complaint: Pain, Acute Stated Complaint: ABD PAIN Time Seen by Provider: 06/25/19 00:58 Past History <Sujey Millard - Last Filed: 06/25/19 03:52> - Past Medical History Asthma: No Cancer: No Cardiac Disorders: No COPD: No Diabetes: No GI Disorders: Yes (gastritis) HTN: No Psychiatric Problems: Yes (anxiety) Seizures: No Thyroid Disease: Yes - Surgical History Appendectomy: Yes - Reproductive History (#): 3 Para: 2 Therapeutic (s) & number: No Spontaneous : 0 - Immunization History Immunization Up to Date: Yes - Psycho Social/Smoking Cessation Hx Smoking Status: No Smoking History: Never smoked Have you smoked in the past 12 months: No Number of Cigarettes Smoked Daily: 0 If you are a former smoker, when did you quit?: PT DOES NOT SMOKE CIGARETTES, ONLY MARIJUANA PER HER REPORT Information on smoking cessation initiated: No 'Breaking Loose' booklet given: 02/12/15 Hx Alcohol Use: No Drug/Substance Use Hx: No Substance Use Type: Marijuana Hx Substance Use Treatment: No <Jessi Boswell - Last Filed: 06/25/19 08:59> - Past Medical History Allergies/Adverse Reactions: Allergies Allergy/AdvReac Type Severity Reaction Status Date / Time No Known Allergies Allergy Verified 06/25/19 00:02 Home Medications: Ambulatory Orders Levothyroxine Sodium [Levoxyl] 125 mcg PO DAILY 10/30/18 Albuterol 0.083% Nebulizer Rocío [Ventolin 0.083%] 1 neb NEB QID PRN 06/22/19 Albuterol Sulfate Inhaler - [Ventolin Hfa Inhaler -] 1 - 2 inh PO QID PRN *Physical Exam - Vital Signs Last Vital Signs Temp Pulse Resp BP Pulse Ox 98.6 F 89 20 123/53 L 100 06/25/19 00:02 06/25/19 00:02 06/25/19 00:02 06/25/19 00:02 06/25/19 00:02 <Sujey Millard - Last Filed: 06/25/19 03:52> - Vital Signs Last Vital Signs Temp Pulse Resp BP Pulse Ox 98.6 F 89 20 123/53 L 100 06/25/19 00:02 06/25/19 00:02 06/25/19 00:02 06/25/19 00:02 06/25/19 00:02 <Jessi Boswell - Last Filed: 06/25/19 08:59> ED Treatment Course - LABORATORY CBC & Chemistry Diagram: 06/25/19 01:55 06/25/19 01:55 - ADDITIONAL ORDERS Additional order review: Laboratory Results 06/25/19 06/25/19 06/25/19 01:55 01:55 01:55 PT with INR 13.40 H INR 1.13 H Sodium 141 Potassium 3.9 Chloride 108 H Carbon Dioxide 27 Anion Gap 6 L BUN 16.4 Creatinine 0.6 Est GFR (CKD-EPI)AfAm 143.77 Est GFR (CKD-EPI)NonAf 124.04 Random Glucose 95 Calcium 9.3 Total Bilirubin 0.2 AST 15 ALT 20 Alkaline Phosphatase 73 Troponin I < 0.02 Total Protein 7.8 Albumin 3.7 Lipase 146 TSH 6.95 H 06/25/19 01:55 RBC 4.53 MCV 77.3 L MCHC 32.4 RDW 17.2 H MPV 9.1 Neutrophils % 62.9 Lymphocytes % 29.7 Monocytes % 6.1 Eosinophils % 0.5 Basophils % 0.8 - Medications Given in the ED: ED Medications Discontinued Medications Generic Name Dose Route Start Last Admin Trade Name Freq PRN Reason Stop Dose Admin Famotidine/Sodium Chloride 20 mg in 50 mls @ 100 mls/hr 06/25/19 01:41 02:05 Pepcid 20 Mg Premixed Ivpb - IVPB 06/25/19 02:10 100 mls/hr ONCE ONE Administration Ondansetron HCl 4 mg 06/25/19 01:38 06/25/19 02:05 Zofran Injection IVPUSH 06/25/19 01:39 4 mg ONCE ONE Administration <Sujey Millard - Last Filed: 06/25/19 03:52> - LABORATORY CBC & Chemistry Diagram: 06/25/19 01:55 06/25/19 01:55 <Jessi Boswell - Last Filed: 06/25/19 08:59> Discharge <Sujey Millard - Last Filed: 06/25/19 03:52> - Discharge Information Problems reviewed: Yes <Jessi Boswell - Last Filed: 06/25/19 08:59> - Discharge Information Clinical Impression/Diagnosis: Shortness of breath, Elevated TSH, Hypothyroid Condition: Improved Disposition: HOME - Follow up/Referral Referrals: Ramandeep Willis MD [Primary Care Provider] - - Patient Discharge Instructions Patient Printed Discharge Instructions: Eating a Diet Rich in Fruits and Vegetables, DI for Hypothyroidism Additional Instructions: You came into the er with shortness of breath and palpitations. We looked at your bloodwork which showed you have an elevated TSH. EKG and Xray were within normal limits. It is extremely important for you to schedule a follow up appointment with your dyno technician Dr. Aguilar in the next 24 to 48 hours so you can re-adjust the dosage on your levothyroxine. Follow-up with your primary care provider within 72 hours to discuss this ED visit and to further evaluate your symptoms. Call today or tomorrow morning and make an appointment. Your workup is not complete until you do so. Immediate medical attention is required if: you pass out, have any chest pain, shortness of breath, severe headaches, changes in vision, focal numbness or weakness, any severe abdominal pain, any black tarry stool, or any new or concerning symptoms. If you think you are having an emergency, call for emergency medical services or present to the emergency department right away. - Post Discharge Activity
[2019-06-25] MEDS ORDERED: ONDANSETRON 4 MG/2 ML VIAL IVPUSH ONE (01:38)
[2019-06-25] MEDS ORDERED: FAMOTIDINE 20 MG/50 ML IVPB 20 MG/50 ML MG IVPB ONE ×2 (01:41→02:02)
[2019-06-25] MEDS ORDERED: ONDANSETRON 4 MG/2 ML VIAL ONE (02:02)
[2019-06-25 02:10] LABS: BASO % 0.8 % (0-2.0); EOS % 0.5 % (0-4.5); HEMATOCRIT 35.1 % (32.4-45.2); HEMOGLOBIN 11.4 GM/dL (10.7-15.3); LYMPH % 29.7 % (8-40); MCH 25.1 pg (25.7-33.7); MCHC 32.4 g/dl (32.0-36.0); MEAN CELL VOLUME 77.3 fl (80-96); MEAN PLT VOLUME 9.1 fl (7.5-11.1); MONO % 6.1 % (3.8-10.2); NEUT % 62.9 % (42.8-82.8); PLATELET COUNT 265 K/MM3 (134-434); RBC 4.53 M/mm3 (3.60-5.2); RDW 17.2 % (11.6-15.6); WHITE BLOOD COUNT 6.7 K/mm3 (4.0-10.0)
[2019-06-25 02:23] LABS: INR 1.13 (0.83-1.09); PROTHROMBIN TIME (PATIENT) 13.4 SEC (9.7-13.0)
[2019-06-25 02:36] LABS: ALBUMIN 3.7 g/dl (3.4-5.0); BILIRUBIN,TOTAL 0.2 mg/dL (0.2-1); BLOOD UREA NITROGEN 16.4 mg/dL (7-18); CALCIUM 9.3 mg/dL (8.5-10.1); CREATININE 0.6 mg/dL (0.55-1.3); POTASSIUM 3.9 mmol/L (3.5-5.1); TOT PROT 7.8 g/dl (6.4-8.2)
[2019-06-25] MEDS ORDERED: ALBUTEROL SO4 2.5/IPRATROPIUM 0.5 INH SOL 3 ML VIAL.NEB. NEB ONE (02:51)
--- NOTE | 2019-06-25 03:14 | PDOC ---
Attending Attestation - Resident Resident Name: eJssi Boswell - ED Attending Attestation I have performed the following: I have examined & evaluated the patient, The case was reviewed & discussed with the resident, I agree w/resident's findings & plan - HPI HPI: 06/25/19 03:55 Pt comes with chest pain and SOB; she has asthma. She lives in a moldy apt and she is arguing with landlord for the awful living quarters. Pt states that she is under a great deal of stress with 3 kids 13 yo and a 12 yo autistic child and a 2 yo autistic child Pt is 29 yo. SHe doesn't work and cares for kids. Her partner works. SHe has thyroid d/o and she has asthma and she has obesity. No fevers and no chills SHe has no N/V/D No dysuria No travel out of country. - Physicial Exam PE: 06/25/19 03:57 Normal exam Pt appears well. - Medical Decision Making 06/25/19 03:51 Pt is under a gret deal of stress b/c her landlord is kicking her out of her apt. 06/25/19 03:57 Lbas normal TSH elevated EKG normal CXR done 3 days ago normal; we will not repeat another one. Pt has no OCP and she is not a smoker SHe used to smoke marijuana, but she quit. SHe uses no drugs and no alcohol. Heart Score/ECG Review - ECG Intrepretation Rhythm: Regular Rhythm - [place]: Normal - P and HI Delta Wave(s) Present: No WPW: No - QRS Poor R Wave Progression: No Q Wave Present: No - ST and T Early Repolarization: No Non Specific ST-T Wave changes: No Flattened T Waves: No Prolonged Q-T Interval: No - ECG Impressions Normal ECG: Yes Non-specific ST Elevation: No Ischemic Changes: No Bradycardia: No Torsades claudy Pointes: No WPW: No
--- NOTE | 2019-06-25 14:12 | EKG ---
Test Reason : Blood Pressure : / mmHG Vent. Rate : 065 BPM Atrial Rate : 065 BPM P-R Int : 130 ms QRS Dur : 070 ms QT Int : 388 ms P-R-T Axes : 013 053 017 degrees QTc Int : 403 ms NORMAL SINUS RHYTHM WITH SINUS ARRHYTHMIA NORMAL ECG Confirmed by MD YOSELYN, TANI ([id number]) on 06/25/2019 2:12:11 PM Referred By: Confirmed By:TANI TOPETE MD
== END 2019-06-25 04:17 | disposition home or self-care (01) ==
LOC: JER 23:46
DX: E03.9 Hypothyroidism, unspecified (principal); R94.6 Abnormal results of thyroid function studies; J45.909 Unspecified asthma, uncomplicated; F41.9 Anxiety disorder, unspecified; Z87.19 Personal history of other diseases of the digestive system; Z59.2 Discord with neighbors, lodgers and landlord
CPT/HCPCS: 36415; 80053; 83690; 84443; 84484; 85025; 85610; 93005; 93010; 99283-25

== ENCOUNTER 2020-05-27 16:26 | Emergency (ER) | payer OTHER ==
[2020-05-27 16:38] VITALS: TEMP 97.9; BMI 36.8
[2020-05-27] MEDS ORDERED: SODIUM CHLORIDE 1,000 ML IV STA (20:44)
[2020-05-27 21:03] LABS: BASO % 0.6 % (0-2.0); EOS % 1.5 % (0-4.5); HEMATOCRIT 35.9 % (32.4-45.2); HEMOGLOBIN 11.7 GM/dL (10.7-15.3); LYMPH % 30.3 % (8-40); MCHC 32.6 g/dl (32.0-36.0); MEAN CELL VOLUME 79.8 fl (80-96); MEAN PLT VOLUME 9.4 fl (7.5-11.1); MONO % 4.7 % (3.8-10.2); NEUT % 62.9 % (42.8-82.8); PLATELET COUNT 287 K/MM3 (134-434); RDW 16.3 % (11.6-15.6); WHITE BLOOD COUNT 7.9 K/mm3 (4.0-10.0)
[2020-05-27 21:05] LABS: EPI CELLS >36 /uL (0-25.1); HYALINE CASTS 3 /uL (0-3.1); URINE APPEARANCE TURBID; URINE BILIRUBIN 2+ (NEGATIVE); URINE COLOR RED; URINE GLUCOSE (UA) NEGATIVE (NEGATIVE); URINE KETONE TRACE (NEGATIVE); URINE LEUK ESTERASE 2+ (NEGATIVE); URINE NITRITE POSITIVE (NEGATIVE); URINE PROTEIN 3+ (NEGATIVE); URINE UROBILINOGEN 0.2 mg/dL (0.2-1.0); URINE WBC 135 /uL (0-25.8)
[2020-05-27 22:31] LABS: URINE BACTERIA 22.4 /uL (0-1359); URINE RBC 5524.8 /uL (0-23.9)
[2020-05-27 22:32] LABS: YEAST FEW (NEGATIVE)
[2020-05-27 23:09] VITALS: BP 106/38; PULSE 63
== END 2020-05-27 23:10 | disposition home or self-care (01) ==
LOC: JER 16:26
PROC: 3E0337Z Introduction of Electrolytic and Water Balance Substance into Peripheral Vein, Percutaneous Approach (ICD-10-PCS; principal; 2020-05-27)
DX: N93.8 Other specified abnormal uterine and vaginal bleeding (principal); N30.00 Acute cystitis without hematuria
CPT/HCPCS: 36415; 76817-TC; 81003; 84702; 85025; 86850; 86900; 86901; 87086; 99284-25

== ENCOUNTER 2020-07-15 00:59 | Emergency (ER) | payer OTHER ==
[2020-07-15 01:18] VITALS: TEMP 98.8; BMI 39.3
[2020-07-15] MEDS ORDERED: ACETAMINOPHEN 500 MG TABLET (FP) PO ONE (01:45)
[2020-07-15 01:51] LABS: BASO % 0.7 % (0-2.0); EOS % 2.4 % (0-4.5); HEMATOCRIT 35.1 % (32.4-45.2); HEMOGLOBIN 11.4 GM/dL (10.7-15.3); LYMPH % 31.8 % (8-40); MCH 26.2 pg (25.7-33.7); MCHC 32.6 g/dl (32.0-36.0); MEAN CELL VOLUME 80.4 fl (80-96); MEAN PLT VOLUME 9.6 fl (7.5-11.1); MONO % 6.7 % (3.8-10.2); NEUT % 58.4 % (42.8-82.8); PLATELET COUNT 280 K/MM3 (134-434); RBC 4.36 M/mm3 (3.60-5.2); RDW 17.2 % (11.6-15.6); WHITE BLOOD COUNT 7.6 K/mm3 (4.0-10.0)
[2020-07-15] MEDS ORDERED: ACETAMINOPHEN 325 MG TABLET (FP) ONE (02:04)
[2020-07-15 02:08] LABS: POTASSIUM 3.8 mmol/L (3.5-5.1)
[2020-07-15 02:10] LABS: ALBUMIN 3.8 g/dl (3.4-5.0); BLOOD UREA NITROGEN 15.2 mg/dL (7-18); CALCIUM 8.8 mg/dL (8.5-10.1)
[2020-07-15 02:14] LABS: CREATININE 0.6 mg/dL (0.55-1.3)
[2020-07-15 02:15] LABS: BILIRUBIN,TOTAL 0.2 mg/dL (0.2-1); TOT PROT 7.8 g/dl (6.4-8.2)
[2020-07-15] MEDS ORDERED: morphine CARPU-JECT 4 MG/1 ML DISP.SYRIN IVPUSH ONE (02:50)
[2020-07-15] MEDS ORDERED: MORPHINE SULFATE 2 MG/ML VIAL ONE (02:52)
[2020-07-15 03:06] LABS: EPI CELLS >36 /uL (0-25.1); HYALINE CASTS 5 /uL (0-3.1); PH,URINE 5.5 (5.0-8.0); URINE APPEARANCE CLOUDY; URINE BACTERIA 273 /uL (0-1359); URINE BILIRUBIN NEGATIVE (NEGATIVE); URINE COLOR YELLOW; URINE GLUCOSE (UA) NEGATIVE (NEGATIVE); URINE KETONE TRACE (NEGATIVE); URINE LEUK ESTERASE 1+ (NEGATIVE); URINE NITRITE NEGATIVE (NEGATIVE); URINE PROTEIN NEGATIVE (NEGATIVE); URINE RBC 8 /uL (0-23.9); URINE WBC 28 /uL (0-25.8)
[2020-07-15] MEDS ORDERED: METHOTREXATE SODIUM/PF 25 MG/ML VIAL IM ONE ×2 (03:39→04:30)
[2020-07-15] MEDS ORDERED: KETOROLAC TROMETHAMINE 15 MG/ML VIAL IVPUSH ONE (05:52)
[2020-07-15] MEDS ORDERED: KETOROLAC TROMETHAMINE 15 MG/ML VIAL ONE (06:03)
[2020-07-15 06:16] VITALS: BP 102/78; PULSE 65
== END 2020-07-15 06:44 | disposition home or self-care (01) ==
LOC: JER 00:59
PROC: 3E0333Z Introduction of Anti-inflammatory into Peripheral Vein, Percutaneous Approach (ICD-10-PCS; principal; 2020-07-15)
PROC: 3E033GC Introduction of Other Therapeutic Substance into Peripheral Vein, Percutaneous Approach (ICD-10-PCS; 2020-07-15)
PROC: 3E033NZ Introduction of Analgesics, Hypnotics, Sedatives into Peripheral Vein, Percutaneous Approach (ICD-10-PCS; 2020-07-15)
DX: O00.90 Unspecified ectopic pregnancy without intrauterine pregnancy (principal)
CPT/HCPCS: 36415; 76817-TC; 80053; 81003; 84702; 85025; 86850; 86900; 86901; 87086; 99284-25; J9260

== ENCOUNTER 2020-07-17 05:54 | Emergency (ER) | payer OTHER ==
[2020-07-17] MEDS ORDERED: SODIUM CHLORIDE 1,000 ML IV SCH (06:15)
[2020-07-17] MEDS ORDERED: morphine CARPU-JECT 4 MG/1 ML DISP.SYRIN IVPUSH ONE (06:17)
[2020-07-17] MEDS ORDERED: ONDANSETRON 4 MG/2 ML VIAL IVPUSH ONE (06:17)
[2020-07-17 06:22] VITALS: BMI 35.2
[2020-07-17] MEDS ORDERED: ONDANSETRON 4 MG/2 ML VIAL ONE (06:23)
[2020-07-17] MEDS ORDERED: morphine SULFATE 4 MG/ML VIAL ONE (06:23)
[2020-07-17 06:58] LABS: BASO % 0.8 % (0-2.0); EOS % 0.4 % (0-4.5); HEMATOCRIT 34.6 % (32.4-45.2); HEMOGLOBIN 11.3 GM/dL (10.7-15.3); LYMPH % 13.8 % (8-40); MCH 26.1 pg (25.7-33.7); MCHC 32.8 g/dl (32.0-36.0); MEAN CELL VOLUME 79.7 fl (80-96); MEAN PLT VOLUME 9.6 fl (7.5-11.1); MONO % 2.2 % (3.8-10.2); NEUT % 82.8 % (42.8-82.8); PLATELET COUNT 263 K/MM3 (134-434); RBC 4.34 M/mm3 (3.60-5.2); RDW 17.1 % (11.6-15.6); WHITE BLOOD COUNT 8.1 K/mm3 (4.0-10.0)
[2020-07-17 07:03] LABS: INR 1.13 (0.83-1.09); PROTHROMBIN TIME (PATIENT) 13.9 SEC (9.7-13.0)
[2020-07-17 07:05] LABS: ACTIVATED PTT 31.6 SECONDS (25.2-36.5)
[2020-07-17 07:15] LABS: CALCIUM 8.7 mg/dL (8.5-10.1)
[2020-07-17 07:16] LABS: ALBUMIN 3.7 g/dl (3.4-5.0); BLOOD UREA NITROGEN 12.8 mg/dL (7-18)
[2020-07-17 07:19] LABS: CREATININE 0.6 mg/dL (0.55-1.3)
[2020-07-17 07:20] LABS: BILIRUBIN,TOTAL 0.3 mg/dL (0.2-1); TOT PROT 7.6 g/dl (6.4-8.2)
[2020-07-17] MEDS ORDERED: KETOROLAC TROMETHAMINE 15 MG/ML VIAL IVPUSH ONE (09:40)
[2020-07-17] MEDS ORDERED: ACETAMINOPHEN 1000 MG/100 ML VIAL (NON FORMULARY) IVPB ONE (09:40)
[2020-07-17 10:01] LABS: PH,URINE 6.5 (5.0-8.0); URINE APPEARANCE Clear; URINE BILIRUBIN Negative (NEGATIVE); URINE COLOR Yellow; URINE GLUCOSE (UA) Negative (NEGATIVE); URINE KETONE 2+ (NEGATIVE); URINE LEUK ESTERASE Negative (NEGATIVE); URINE NITRITE Negative (NEGATIVE); URINE PROTEIN Negative (NEGATIVE)
[2020-07-17] MEDS ORDERED: ACETAMINOPHEN INJECTION 100 ML IVPB ONE (11:22)
[2020-07-17] MEDS ORDERED: KETOROLAC TROMETHAMINE 15 MG/ML VIAL ONE (11:23)
[2020-07-17 13:53] VITALS: BP 136/55; PULSE 65; TEMP 99
== END 2020-07-17 13:53 | disposition home or self-care (01) ==
LOC: JER 05:54
PROC: 3E033NZ Introduction of Analgesics, Hypnotics, Sedatives into Peripheral Vein, Percutaneous Approach (ICD-10-PCS; principal; 2020-07-17)
PROC: 3E033GC Introduction of Other Therapeutic Substance into Peripheral Vein, Percutaneous Approach (ICD-10-PCS; 2020-07-17)
DX: R10.2 Pelvic and perineal pain (principal); N93.9 Abnormal uterine and vaginal bleeding, unspecified
CPT/HCPCS: 36415; 76817-TC; 80053; 81003; 84702; 85025; 85610; 85730; 86850; 86900; 86901; 87086; 99285-25; J0131

== ENCOUNTER 2020-10-14 22:32 | Emergency (ER) | payer OTHER ==
[2020-10-14 22:43] VITALS: BP 120/81; PULSE 79; TEMP 98.5; BMI 35.3
[2020-10-14] MEDS ORDERED: KETOROLAC TROMETHAMINE 30 MG/1 ML VIAL IM ONE (23:04)
[2020-10-14] MEDS ORDERED: KETOROLAC TROMETHAMINE 30 MG/1 ML VIAL ONE (23:07)
== END 2020-10-14 23:51 | disposition home or self-care (01) ==
LOC: JER 22:32
PROC: 3E0233Z Introduction of Anti-inflammatory into Muscle, Percutaneous Approach (ICD-10-PCS; principal; 2020-10-14)
DX: R07.89 Other chest pain (principal)
CPT/HCPCS: 71046-TC-FY; 93005; 93010; 99284-25

== ENCOUNTER 2020-11-05 17:32 | Emergency (ER) | payer OTHER ==
[2020-11-05 17:42] VITALS: BP 102/65; PULSE 70; TEMP 98.8; BMI 36.8
[2020-11-05 19:10] LABS: BASO % 0.6 % (0-2.0); EOS % 2.6 % (0-4.5); HEMATOCRIT 33.2 % (32.4-45.2); HEMOGLOBIN 10.8 GM/dL (10.7-15.3); LYMPH % 29.5 % (8-40); MCH 26.4 pg (25.7-33.7); MCHC 32.5 g/dl (32.0-36.0); MEAN CELL VOLUME 81.1 fl (80-96); MONO % 6.6 % (3.8-10.2); NEUT % 60.7 % (42.8-82.8); PLATELET COUNT 290 10^3/uL (134-434); RDW 15.4 % (11.6-15.6); WHITE BLOOD COUNT 6.5 K/mm3 (4.0-10.0)
[2020-11-05 19:29] LABS: CHLORIDE 106 mmol/L (98-107); SODIUM 140 mmol/L (136-145)
[2020-11-05 19:31] LABS: ALBUMIN 3.5 g/dl (3.4-5.0); ANION GAP 7 MMOL/L (8-16); BLOOD UREA NITROGEN 13.2 mg/dL (7-18); CALCIUM 8.6 mg/dL (8.5-10.1); CO2 26 mmol/L (21-32); GLUCOSE,RANDOM 96 mg/dL (74-106)
[2020-11-05 19:34] LABS: CREATININE 0.5 mg/dL (0.55-1.3); SGOT/AST 13 U/L (15-37); SGPT/ALT 14 U/L (13-61)
[2020-11-05 19:37] LABS: ALK PHOS 74 U/L (45-117)
[2020-11-05 19:57] LABS: BILIRUBIN,TOTAL 0.1 mg/dL (0.2-1)
[2020-11-05 21:10] LABS: EPI CELLS >36 /uL (0-25.1); HYALINE CASTS 6 /uL (0-3.1); PH,URINE 5.5 (5.0-8.0); URINE APPEARANCE Cloudy; URINE BACTERIA 3866 /uL (0-1359); URINE BILIRUBIN Negative (NEGATIVE); URINE COLOR Yellow; URINE GLUCOSE (UA) Negative (NEGATIVE); URINE KETONE Trace (NEGATIVE); URINE LEUK ESTERASE Small (NEGATIVE); URINE NITRITE Negative (NEGATIVE); URINE PROTEIN Negative (NEGATIVE); URINE WBC 144 /uL (0-25.8)
[2020-11-05 22:20] LABS: URINE RBC 29.6 /uL (0-23.9)
== END 2020-11-05 21:52 | disposition home or self-care (01) ==
LOC: JER 17:32
DX: N93.8 Other specified abnormal uterine and vaginal bleeding (principal)
CPT/HCPCS: 36415; 76830-TC; 80053; 81003; 84702; 85025; 86850; 86900; 86901; 87086; 99284-25

== ENCOUNTER 2021-01-23 12:56 | Emergency (ER) | payer OTHER ==
[2021-01-23 13:17] VITALS: BP 130/66; PULSE 80; TEMP 98.3; BMI 34.3
[2021-01-23] MEDS ORDERED: ACETAMINOPHEN 1000 MG/100 ML VIAL (NON FORMULARY) IVPB ONE (14:20)
[2021-01-23] MEDS ORDERED: LACTATED RINGERS SOLUTION 1000 ML INFUS.BAG IV ONE (14:20)
[2021-01-23] MEDS ORDERED: ONDANSETRON 4 MG/2 ML VIAL IVPUSH ONE (14:20)
[2021-01-23] MEDS ORDERED: ONDANSETRON 4 MG/2 ML VIAL ONE (14:31)
[2021-01-23] MEDS ORDERED: ACETAMINOPHEN INJECTION 100 ML IVPB ONE (14:31)
[2021-01-23 14:41] LABS: BASO % 0.8 % (0-2.0); HEMATOCRIT 35.1 % (32.4-45.2); HEMOGLOBIN 11.5 GM/dL (10.7-15.3); LYMPH % 32.5 % (8-40); MCH 25.4 pg (25.7-33.7); MCHC 32.8 g/dl (32.0-36.0); MEAN CELL VOLUME 77.5 fl (80-96); NEUT % 56.7 % (42.8-82.8); PLATELET COUNT 296 10^3/uL (134-434); RBC 4.53 M/mm3 (3.60-5.2); RDW 17.6 % (11.6-15.6); WHITE BLOOD COUNT 5.8 K/mm3 (4.0-10.0)
[2021-01-23 15:03] LABS: ALBUMIN 3.9 g/dl (3.4-5.0)
[2021-01-23 15:06] LABS: CREATININE 0.6 mg/dL (0.55-1.3)
[2021-01-23 15:08] LABS: TOT PROT 8.3 g/dl (6.4-8.2)
[2021-01-23 15:19] LABS: BILIRUBIN,TOTAL 0.3 mg/dL (0.2-1)
== END 2021-01-23 15:36 | disposition home or self-care (01) ==
LOC: JER 12:56
PROC: 3E033GC Introduction of Other Therapeutic Substance into Peripheral Vein, Percutaneous Approach (ICD-10-PCS; principal; 2021-01-23)
DX: R10.84 Generalized abdominal pain (principal); R19.7 Diarrhea, unspecified
CPT/HCPCS: 36415; 80053; 83690; 84703; 85025; 99284-25; C9803; J0131; U0003; U0005

== ENCOUNTER 2021-07-14 04:21 | Emergency (ER) | payer OTHER ==
[2021-07-14 04:30] VITALS: TEMP 97.6; BMI 34.3
[2021-07-14] MEDS ORDERED: FAMOTIDINE 20 MG/50 ML IVPB 20 MG/50 ML MG IVPB ONE ×2 (04:41→04:46)
[2021-07-14] MEDS ORDERED: SUCRALFATE 1 GM TABLET (FP) PO ONE (04:41)
[2021-07-14] MEDS ORDERED: ONDANSETRON 4 MG/2 ML VIAL IVPB ONE (04:41)
[2021-07-14] MEDS ORDERED: MAG HYDROX/AL HYDROX/SIMETH 30 ML UNIT-DOSE CUP PO ONE (04:41)
[2021-07-14] MEDS ORDERED: SODIUM CHLORIDE 0.9% 500 ML INFUS.BAG IV ONE (04:41)
[2021-07-14] MEDS ORDERED: ONDANSETRON 4 MG/2 ML VIAL ONE (04:46)
[2021-07-14] MEDS ORDERED: SUCRALFATE 1 GM TABLET (FP) ONE (04:46)
[2021-07-14] MEDS ORDERED: MAG HYDROX/AL HYDROX/SIMETH 30 ML UNIT-DOSE CUP ONE (04:46)
[2021-07-14] MEDS ORDERED: LIDOCAINE VISCOUS 2% ORAL/TOP 15 ML UNIT-DOSE CUP MM ONE (05:08)
[2021-07-14] MEDS ORDERED: LIDOCAINE VISCOUS 2% ORAL/TOP 15 ML UNIT-DOSE CUP ONE (05:13)
[2021-07-14 05:23] LABS: EOS % 2.5 % (0-4.5); HEMATOCRIT 31.8 % (32.4-45.2); LYMPH % 11.1 % (8-40); MCH 23.5 pg (25.7-33.7); MCHC 31.5 g/dl (32.0-36.0); MEAN CELL VOLUME 74.5 fl (80-96); MONO % 6.5 % (3.8-10.2); NEUT % 78.9 % (42.8-82.8); PLATELET COUNT 289 10^3/uL (134-434); RBC 4.27 M/mm3 (3.60-5.2); RDW 19.2 % (11.6-15.6); WHITE BLOOD COUNT 7.1 K/mm3 (4.0-10.0)
[2021-07-14 05:28] LABS: URINE APPEARANCE CLEAR; URINE BILIRUBIN NEGATIVE (NEGATIVE); URINE COLOR YELLOW; URINE GLUCOSE (UA) NEGATIVE (NEGATIVE); URINE KETONE NEGATIVE (NEGATIVE); URINE LEUK ESTERASE NEGATIVE (NEGATIVE); URINE NITRITE NEGATIVE (NEGATIVE); URINE PROTEIN NEGATIVE (NEGATIVE); URINE UROBILINOGEN 0.2 mg/dL (0.2-1.0)
[2021-07-14 05:31] LABS: HCG,QUALITATIVE URINE Negative
[2021-07-14] MEDS ORDERED: IBUPROFEN 400 MG TABLET (FP) PO ONE ×2 (05:37→05:45)
[2021-07-14 05:38] LABS: CALCIUM 8.5 mg/dL (8.5-10.1)
[2021-07-14 05:39] LABS: ALBUMIN 3.6 g/dl (3.4-5.0); BLOOD UREA NITROGEN 18.5 mg/dL (7-18)
[2021-07-14 05:42] LABS: CREATININE 0.6 mg/dL (0.55-1.3)
[2021-07-14 05:43] LABS: TOT PROT 7.5 g/dl (6.4-8.2)
[2021-07-14 05:44] LABS: BILIRUBIN,TOTAL 0.2 mg/dL (0.2-1)
[2021-07-14] MEDS ORDERED: HALOPERIDOL LACTATE 5 MG/ML IV ONE (06:20)
[2021-07-14] MEDS ORDERED: HALOPERIDOL LACTATE 5 MG/ML ONE (06:29)
[2021-07-14] MEDS ORDERED: LORazepam 2 MG/ML SDV VIAL IVPB ONE (06:44)
[2021-07-14 09:01] VITALS: BP 120/79; PULSE 90
== END 2021-07-14 09:09 | disposition home or self-care (01) ==
LOC: JER 04:21
PROC: 3E033GC Introduction of Other Therapeutic Substance into Peripheral Vein, Percutaneous Approach (ICD-10-PCS; principal; 2021-07-14)
PROC: 3E033GC Introduction of Other Therapeutic Substance into Peripheral Vein, Percutaneous Approach (ICD-10-PCS; 2021-07-14)
PROC: 3E033NZ Introduction of Analgesics, Hypnotics, Sedatives into Peripheral Vein, Percutaneous Approach (ICD-10-PCS; 2021-07-14)
PROC: 3E033GC Introduction of Other Therapeutic Substance into Peripheral Vein, Percutaneous Approach (ICD-10-PCS; 2021-07-14)
DX: R11.2 Nausea with vomiting, unspecified (principal); R10.10 Upper abdominal pain, unspecified
CPT/HCPCS: 36415; 80053; 81003; 83690; 84703; 85025; 87086; 96374; 96375; 99284-25

== ENCOUNTER 2021-10-10 13:57 | Emergency (ER) | payer OTHER ==
[2021-10-10 14:30] VITALS: BP 98/65; PULSE 79; TEMP 98.2; BMI 37.8
[2021-10-10] MEDS ORDERED: SODIUM CHLORIDE 1,000 ML IV STA (14:42)
[2021-10-10] MEDS ORDERED: ONDANSETRON 4 MG/2 ML VIAL IVPUSH ONE (14:42)
[2021-10-10] MEDS ORDERED: ACETAMINOPHEN 1000 MG/100 ML BAG IVPB ONE (14:42)
[2021-10-10] MEDS ORDERED: ACETAMINOPHEN INJECTION 100 ML IVPB ONE (15:14)
[2021-10-10] MEDS ORDERED: ONDANSETRON 4 MG/2 ML VIAL ONE (15:14)
[2021-10-10 15:41] LABS: URINE APPEARANCE CLEAR; URINE BILIRUBIN NEGATIVE (NEGATIVE); URINE COLOR YELLOW; URINE GLUCOSE (UA) NEGATIVE (NEGATIVE); URINE KETONE TRACE (NEGATIVE); URINE LEUK ESTERASE NEGATIVE (NEGATIVE); URINE NITRITE NEGATIVE (NEGATIVE); URINE PROTEIN NEGATIVE (NEGATIVE); URINE UROBILINOGEN 0.2 mg/dL (0.2-1.0)
[2021-10-10 15:47] LABS: HCG,QUALITATIVE URINE Negative
[2021-10-10 15:58] LABS: BASO % 1.1 % (0-2.0); EOS % 1.9 % (0-4.5); HEMATOCRIT 32.9 % (32.4-45.2); HEMOGLOBIN 10.6 GM/dL (10.7-15.3); LYMPH % 29.2 % (8-40); MCH 24.5 pg (25.7-33.7); MCHC 32.2 g/dl (32.0-36.0); MEAN CELL VOLUME 76.2 fl (80-96); MEAN PLT VOLUME 9.8 fl (7.5-11.1); MONO % 7.3 % (3.8-10.2); NEUT % 60.5 % (42.8-82.8); PLATELET COUNT 277 10^3/uL (134-434); RBC 4.33 M/mm3 (3.60-5.2); RDW 18.9 % (11.6-15.6); WHITE BLOOD COUNT 5.5 K/mm3 (4.0-10.0)
[2021-10-10 16:38] LABS: BLOOD UREA NITROGEN 13.1 mg/dL (7-18); CALCIUM 8.9 mg/dL (8.5-10.1)
[2021-10-10 16:39] LABS: ALBUMIN 3.7 g/dl (3.4-5.0)
[2021-10-10 16:42] LABS: CREATININE 0.6 mg/dL (0.55-1.3)
[2021-10-10 16:43] LABS: BILIRUBIN,TOTAL 0.3 mg/dL (0.2-1); TOT PROT 7.5 g/dl (6.4-8.2)
[2021-10-10] MEDS ORDERED: ONDANSETRON *ODT* 4 MG TABLET ONE (18:59)
[2021-10-10] MEDS ORDERED: ONDANSETRON 8 MG TABLET (FP) PO ONE (18:59)
[2021-10-10] MEDS ORDERED: ONDANSETRON *ODT* 4 MG TABLET SL ONE (19:00)
== END 2021-10-10 19:07 | disposition home or self-care (01) ==
LOC: JER 13:57
PROC: 3E033GC Introduction of Other Therapeutic Substance into Peripheral Vein, Percutaneous Approach (ICD-10-PCS; principal; 2021-10-10)
DX: R10.32 Left lower quadrant pain (principal); R11.0 Nausea
CPT/HCPCS: 36415; 74176-TC; 80053; 81003; 83690; 84703; 85025; 87086; 99285-25; Q0162

== ENCOUNTER 2021-10-16 13:33 | Emergency (ER) | payer OTHER ==
[2021-10-16 14:20] VITALS: BP 105/74; PULSE 86; TEMP 98.6; BMI 38.0
[2021-10-16] MEDS ORDERED: SODIUM CHLORIDE 0.9% 500 ML INFUS.BAG IV ONE (15:11)
[2021-10-16] MEDS ORDERED: ONDANSETRON 4 MG/2 ML VIAL IVPUSH ONE (15:11)
[2021-10-16] MEDS ORDERED: KETOROLAC TROMETHAMINE 30 MG/1 ML VIAL IVPB ONE (15:11)
[2021-10-16 16:28] LABS: URINE APPEARANCE CLEAR; URINE BILIRUBIN NEGATIVE (NEGATIVE); URINE COLOR YELLOW; URINE GLUCOSE (UA) NEGATIVE (NEGATIVE); URINE KETONE NEGATIVE (NEGATIVE); URINE LEUK ESTERASE NEGATIVE (NEGATIVE); URINE NITRITE NEGATIVE (NEGATIVE); URINE PROTEIN NEGATIVE (NEGATIVE); URINE UROBILINOGEN 0.2 mg/dL (0.2-1.0)
[2021-10-16] MEDS ORDERED: KETOROLAC TROMETHAMINE 30 MG/1 ML VIAL ONE (16:34)
[2021-10-16] MEDS ORDERED: ONDANSETRON 4 MG/2 ML VIAL ONE (16:34)
[2021-10-16 16:41] LABS: HCG,QUALITATIVE URINE Negative
[2021-10-16 17:38] LABS: BASO % 0.6 % (0-2.0); EOS % 1.1 % (0-4.5); HEMATOCRIT 33.8 % (32.4-45.2); HEMOGLOBIN 10.7 GM/dL (10.7-15.3); LYMPH % 34.1 % (8-40); MCHC 31.6 g/dl (32.0-36.0); MEAN CELL VOLUME 76.1 fl (80-96); MEAN PLT VOLUME 9.5 fl (7.5-11.1); MONO % 6.5 % (3.8-10.2); NEUT % 57.7 % (42.8-82.8); PLATELET COUNT 282 10^3/uL (134-434); RBC 4.43 M/mm3 (3.60-5.2); RDW 18.2 % (11.6-15.6); WHITE BLOOD COUNT 6.6 K/mm3 (4.0-10.0)
[2021-10-16 18:01] LABS: ALBUMIN 3.8 g/dl (3.4-5.0)
[2021-10-16 18:02] LABS: BLOOD UREA NITROGEN 9.5 mg/dL (7-18)
[2021-10-16 18:05] LABS: CREATININE 0.4 mg/dL (0.55-1.3)
[2021-10-16 18:06] LABS: BILIRUBIN,TOTAL 0.2 mg/dL (0.2-1); TOT PROT 7.6 g/dl (6.4-8.2)
== END 2021-10-16 20:07 | disposition home or self-care (01) ==
LOC: JER 13:33
PROC: 3E0333Z Introduction of Anti-inflammatory into Peripheral Vein, Percutaneous Approach (ICD-10-PCS; principal; 2021-10-16)
PROC: 3E033GC Introduction of Other Therapeutic Substance into Peripheral Vein, Percutaneous Approach (ICD-10-PCS; 2021-10-16)
DX: R10.2 Pelvic and perineal pain (principal)
CPT/HCPCS: 36415; 76856-TC; 80053; 81003; 84703; 85025; 87086; 87491; 87591; 99284-25

== ENCOUNTER 2021-11-18 17:24 | Emergency (ER) | payer OTHER ==
[2021-11-18 18:17] VITALS: BMI 36.0
[2021-11-18] MEDS ORDERED: KETOROLAC TROMETHAMINE 30 MG/1 ML VIAL IM ONE (19:34)
[2021-11-18 22:04] VITALS: BP 136/77; PULSE 76; TEMP 98.9
== END 2021-11-18 22:37 | disposition home or self-care (01) ==
LOC: JER 17:24
PROC: 3E0233Z Introduction of Anti-inflammatory into Muscle, Percutaneous Approach (ICD-10-PCS; principal; 2021-11-18)
DX: R51.9 Headache, unspecified (principal); R09.81 Nasal congestion; R50.9 Fever, unspecified; J02.9 Acute pharyngitis, unspecified
CPT/HCPCS: 0241U-QW; 87651; 99284-25

== ENCOUNTER 2023-09-14 09:51 | Emergency (ER) | payer OTHER ==
[2023-09-14 09:58] VITALS: BP 137/94; PULSE 79; RESP 20; TEMP 98.2; BMI 37.8
[2023-09-14] MEDS ORDERED: LORazepam 1 MG TABLET ONE (11:24)
[2023-09-14] MEDS: LORazepam 2 MG TABLET PO ONE (11:26)
[2023-09-14 12:25] LABS: BASO % 0.5 % (0-2.0); EOS % 0.5 % (0-4.5); HEMATOCRIT 36.1 % (32.4-45.2); HEMOGLOBIN 11.9 GM/dL (10.7-15.3); LYMPH % 27.8 % (8-40); MCH 26.3 pg (25.7-33.7); MCHC 33.1 g/dl (32.0-36.0); MEAN CELL VOLUME 79.4 fl (80-96); MEAN PLT VOLUME 8.7 fl (7.5-11.1); MONO % 4.4 % (3.8-10.2); NEUT % 66.8 % (42.8-82.8); PLATELET COUNT 283 10^3/uL (134-434); RBC 4.55 M/mm3 (3.60-5.2); RDW 15.8 % (11.6-15.6); WHITE BLOOD COUNT 6.7 K/mm3 (4.0-10.0)
[2023-09-14 12:44] LABS: POTASSIUM 3.6 mmol/L (3.5-5.1)
[2023-09-14 12:45] LABS: ALBUMIN 3.7 g/dl (3.4-5.0); BLOOD UREA NITROGEN 7.6 mg/dL (7-18); CALCIUM 9.2 mg/dL (8.5-10.1)
[2023-09-14 12:48] LABS: CREATININE 0.6 mg/dL (0.55-1.3)
[2023-09-14 12:50] LABS: BILIRUBIN,TOTAL 0.3 mg/dL (0.2-1); TOT PROT 7.8 g/dl (6.4-8.2)
== END 2023-09-14 14:31 | disposition home or self-care (01) ==
LOC: JERFT 09:51
DX: E03.2 Hypothyroidism due to medicaments and other exogenous substances (principal); T50.905A Adverse effect of unspecified drugs, medicaments and biological substances, initial encounter; R06.02 Shortness of breath
CPT/HCPCS: 36415; 71046-TC-FY; 80053; 82550; 84443; 84484; 84703; 85025; 93005; 93010; 99285-25

== ENCOUNTER 2024-01-01 12:08 | Emergency (ER) | payer OTHER ==
[2024-01-01 12:16] VITALS: BP 103/70; PULSE 61; RESP 18; TEMP 98.5; BMI 37.8
[2024-01-01] MEDS ORDERED: IBUPROFEN 400 MG TABLET (FP) PO ONE ×2 (12:56→12:57)
[2024-01-01] MEDS ORDERED: CYCLOBENZAPRINE HCL 10 MG TABLET (FP) ONE (12:56)
[2024-01-01] MEDS ORDERED: ACETAMINOPHEN 500 MG TABLET (FP) ONE ×2 (12:57)
[2024-01-01] MEDS: CYCLOBENZAPRINE HCL 10 MG TABLET (FP) PO ONE (13:00)
[2024-01-01] MEDS: IBUPROFEN 400 MG TABLET (FP) PO ONE (13:00)
[2024-01-01] MEDS: ACETAMINOPHEN 500 MG TABLET (FP) PO ONE (13:00)
[2024-01-01 14:38] LABS: HIV INTERPRETATION NEGATIVE (NEGATIVE)
== END 2024-01-01 13:53 | disposition home or self-care (01) ==
LOC: JER 12:08
DX: R07.89 Other chest pain (principal)
CPT/HCPCS: 36415; 71046-TC-FY; 86803; 87389; 93005; 93010; 99285-25

== ENCOUNTER 2024-01-27 19:19 | Emergency (ER) | payer BC, OTHER ==
[2024-01-27 19:24] VITALS: BP 143/74; PULSE 79; RESP 18; TEMP 98.8; BMI 37.8
[2024-01-27] MEDS: PROCHLORPERAZINE INJECTION 10 MG/2 ML VIAL IM ONE (20:21)
[2024-01-27] MEDS ORDERED: ONDANSETRON 4 MG TABLET PO ONE (20:23)
[2024-01-27] MEDS ORDERED: KETOROLAC TROMETHAMINE 30 MG/1 ML VIAL ONE (20:23)
[2024-01-27] MEDS: KETOROLAC TROMETHAMINE 30 MG/1 ML VIAL IM ONE (20:30)
[2024-01-27] MEDS: ONDANSETRON *ODT* 4 MG TABLET SL ONE (20:31)
== END 2024-01-27 21:14 | disposition home or self-care (01) ==
LOC: JER 19:19 → JERFT 19:19
PROC: 3E0233Z Introduction of Anti-inflammatory into Muscle, Percutaneous Approach (ICD-10-PCS; principal; 2024-01-27)
DX: G43.909 Migraine, unspecified, not intractable, without status migrainosus (principal)
CPT/HCPCS: 99284-25; Q0162

== ENCOUNTER 2024-08-03 02:56 | Observation (INO) | payer BC, OTHER ==
[2024-08-03] MEDS ORDERED: ONDANSETRON 4 MG/2 ML VIAL ONE (03:50)
[2024-08-03] MEDS ORDERED: ACETAMINOPHEN INJECTION 100 ML ONE (03:50)
[2024-08-03 04:13] LABS: ABSOLUTE IMMATURE GRANULOCYTES 0.02 x10^3/uL (0.0-0.031); BASOPHILS # 0.05 x10^3/uL (0.01-0.08); EOSINOPHIL % 2.3 % (0.7-5.8); EOSINOPHILS # 0.15 x10^3/uL (0.04-0.36); HEMATOCRIT 37.4 % (34.1-44.9); HEMOGLOBIN 12.3 g/dL (11.2-15.7); MCHC 32.9 g/dl (32.2-35.5); MEAN PLT VOLUME 10.6 fl (9.4-12.3); MONOCYTE # 0.51 x10^3/uL (0.24-0.86); MONOCYTE % 7.8 % (4.7-12.5); PLATELET COUNT # 270 x10^3/uL (182-369); RDW 14.7 % (12.1-16.8)
[2024-08-03] MEDS: SODIUM CHLORIDE 0.9% 500 ML INFUS.BAG IV ONE (04:19)
[2024-08-03] MEDS: ACETAMINOPHEN 1000 MG/100 ML BAG IVPB ONE ×2 (04:19→19:32)
[2024-08-03] MEDS: ONDANSETRON 4 MG/2 ML VIAL IVPUSH ONE (04:21)
[2024-08-03 04:23] LABS: INR 1.11 (0.83-1.09); PROTHROMBIN TIME (PATIENT) 12.1 SEC (9.7-13.0)
[2024-08-03 04:25] LABS: ACTIVATED PTT 30.8 SECONDS (25.2-36.5)
[2024-08-03 04:44] LABS: POTASSIUM 3.4 mmol/L (3.5-5.1)
[2024-08-03 04:46] LABS: CALCIUM 9.1 mg/dL (8.5-10.1)
[2024-08-03 04:47] LABS: ALBUMIN 3.6 g/dl (3.4-5.0); BLOOD UREA NITROGEN 21.6 mg/dL (7-18)
[2024-08-03 04:50] LABS: CREATININE 0.6 mg/dL (0.55-1.3)
[2024-08-03 04:51] LABS: BILIRUBIN,TOTAL 0.2 mg/dL (0.2-1); TOT PROT 7.2 g/dl (6.4-8.2)
[2024-08-03] MEDS ORDERED: DICYCLOMINE HCL 10 MG CAPSULE ONE (07:36)
[2024-08-03] MEDS: DICYCLOMINE HCL 10 MG CAPSULE PO ONE (07:41)
[2024-08-03] MEDS ORDERED: MORPHINE SULFATE 2 MG/ML SYRINGE ONE (09:28)
[2024-08-03] MEDS ORDERED: POTASSIUM CHLORIDE ORAL LIQUID 20 MEQ/15 ML ONE (09:28)
[2024-08-03] MEDS: POTASSIUM CHLORIDE ORAL LIQUID 20 MEQ/15 ML PO ONE (09:43)
[2024-08-03] MEDS: morphine CARPU-JECT 2 MG/1 ML DISP.SYRIN IVPUSH ONE (09:44)
[2024-08-03 09:52] LABS: MAGNESIUM 2.2 mg/dL (1.8-2.4)
[2024-08-03 15:33] VITALS: BMI 36.4
[2024-08-03] MEDS: ONDANSETRON 4 MG/2 ML VIAL IVPUSH PRN (15:53)
[2024-08-03] MEDS ORDERED: VANCOMYCIN HCL 125 MG CAPSULE (RESTRICTED TO ID ONLY) PO SCH (18:00)
[2024-08-03] MEDS ORDERED: VANCOMYCIN ORAL SOLUTION 125 MG/2.5 ML PO SCH (18:00)
[2024-08-03] MEDS: VANCOMYCIN HCL 125 MG CAPSULE (RESTRICTED TO ID ONLY) PO SCH (18:15)
[2024-08-03 18:36] LABS: URINE BARBITURATES NEGATIVE (NEGATIVE)
[2024-08-03 18:37] LABS: METHADONE, UR NEGATIVE (NEGATIVE)
[2024-08-03 18:41] LABS: COCAINE, UR NEGATIVE (NEGATIVE); OPIATES, URI POSITIVE (NEGATIVE); PHENCYCLIDINE,URINE NEGATIVE (NEGATIVE); URINE AMPHETAMINES NEGATIVE (NEGATIVE); URINE BENZODIAZEPINES NEGATIVE (NEGATIVE)
[2024-08-04] MEDS: LEVOTHYROXINE 112 MCG, LEVOTHYROXINE 25 MCG PO SCH (06:05)
[2024-08-04 06:59] VITALS: PULSE 62
[2024-08-04] MEDS: ACETAMINOPHEN 500 MG TABLET (FP) PO PRN (08:21)
[2024-08-04 08:52] LABS: HEMATOCRIT 36.9 % (34.1-44.9); HEMOGLOBIN 12.2 g/dL (11.2-15.7); MCHC 33.1 g/dl (32.2-35.5); MEAN CELL VOLUME 86.6 fl (79.4-94.8); MEAN PLT VOLUME 11.1 fl (9.4-12.3); PLATELET COUNT # 256 x10^3/uL (182-369); RDW 14.7 % (12.1-16.8)
[2024-08-04 09:23] LABS: POTASSIUM 3.7 mmol/L (3.5-5.1)
[2024-08-04 09:34] LABS: ALBUMIN 3.3 g/dl (3.4-5.0); BLOOD UREA NITROGEN 8.8 mg/dL (7-18)
[2024-08-04 09:37] LABS: CALCIUM 8.7 mg/dL (8.5-10.1); CREATININE 0.5 mg/dL (0.55-1.3)
[2024-08-04 09:38] LABS: PHOSPHOROUS 3.8 mg/dL (2.5-4.9)
[2024-08-04 09:39] LABS: BILIRUBIN,TOTAL 0.4 mg/dL (0.2-1); TOT PROT 6.6 g/dl (6.4-8.2)
[2024-08-04] MEDS ORDERED: PATIENT'S OWN MEDICATION (NON-FORMULARY) (Levothyroxine Sodium [Synthroid] 137 MCG Tablet) PO SCH (10:00)
[2024-08-04 13:19] VITALS: BP 102/63; RESP 18; TEMP 97.9
== END 2024-08-04 11:57 | disposition home or self-care (01) ==
LOC: JER 02:56 → JERBED 10:38 → J7W 14:19
PROVIDERS: ADMIT Internal Medicine
PROC: 3E033NZ Introduction of Analgesics, Hypnotics, Sedatives into Peripheral Vein, Percutaneous Approach (ICD-10-PCS; principal; 2024-08-03)
PROC: 3E033NZ Introduction of Analgesics, Hypnotics, Sedatives into Peripheral Vein, Percutaneous Approach (ICD-10-PCS; 2024-08-03)
PROC: 3E033GC Introduction of Other Therapeutic Substance into Peripheral Vein, Percutaneous Approach (ICD-10-PCS; 2024-08-03)
PROC: 3E0337Z Introduction of Electrolytic and Water Balance Substance into Peripheral Vein, Percutaneous Approach (ICD-10-PCS; 2024-08-03)
DX: R10.33 Periumbilical pain (principal); E87.6 Hypokalemia; E03.9 Hypothyroidism, unspecified; D25.9 Leiomyoma of uterus, unspecified; N83.201 Unspecified ovarian cyst, right side; Z29.89 Encounter for other specified prophylactic measures; Z90.49 Acquired absence of other specified parts of digestive tract; Z87.19 Personal history of other diseases of the digestive system
CPT/HCPCS: 36415; 74177-TC; 80053; 80307; 83605; 83690; 83735; 84100; 84703; 85025; 85027; 85610; 85651; 85730; 86140; 86850; 86900; 86901; 93005; 93010; 96374; 96375; 96376; 99285-25; G0378; J0131